=== PATIENT | female | born 1975 | race Two or more races ===

== ENCOUNTER → 2018-03-24 | Day surgery (SDC) | payer OTHER ==
[~2018-03-24] MED LIST: IV RINGERS,LACTATED 1000ML 1,000 ML IV; LIDOCAINE 1% PF 2 ML VIAL. ID; LIDOCAINE 2% PF Vial for OR 5 ML VIAL.; MIDAZOLAM HCL/PF 2 MG/2 ML VIAL. IV; PROPOFOL 40 ML IV; fentaNYL PF VIAL 100 MCG/2 ML VIAL; fentaNYL PF VIAL 100 MCG/2 ML VIAL IV
[2018-03-24] MEDS: IV RINGERS,LACTATED 1000ML 1,000 ML IV (07:00)
== END | disposition home or self-care (01) ==
LOC: SURG 06:28
DX: K64.0 First degree hemorrhoids (principal); K21.0 Gastro-esophageal reflux disease with esophagitis; K29.80 Duodenitis without bleeding; Z90.710 Acquired absence of both cervix and uterus; Z98.890 Other specified postprocedural states; M32.9 Systemic lupus erythematosus, unspecified; Z88.8 Allergy status to other drugs, medicaments and biological substances
CPT/HCPCS: 43239; 45380; 88305; J2001; J2704; J3010

== ENCOUNTER 2019-03-21 15:50 | Emergency (ER) | payer BC, OTHER ==
[~2019-03-21] VITALS: Ht 157.5 cm; Wt 96.6 kg
[~2019-03-21 15:50] MED LIST changes: -IV RINGERS,LACTATED 1000ML 1,000 ML IV; -LIDOCAINE 1% PF 2 ML VIAL. ID; -LIDOCAINE 2% PF Vial for OR 5 ML VIAL.; -MIDAZOLAM HCL/PF 2 MG/2 ML VIAL. IV; +OMEP20TA63 PO; -PROPOFOL 40 ML IV; -fentaNYL PF VIAL 100 MCG/2 ML VIAL; -fentaNYL PF VIAL 100 MCG/2 ML VIAL IV
[2019-03-21] MEDS ORDERED: ORPH100T PO (17:12)
[2019-03-21] MEDS ORDERED: BUTA1TAB23 PO (17:12)
--- NOTE | 2019-03-21 17:13 | PHYS DOC ---
Past Medical History Past Medical History: Anemia, Hypertension, Other Additional Past Medical Histor: lupus Past Surgical History: , Hysterectomy Alcohol Use: None Drug Use: None Adult General Chief Complaint Chief Complaint: HYPERTENSION HPI HPI Patient is a 44 year old [f__sex] who presents with [] Review of Systems Review of Systems Constitutional: Denies fever or chills [] Eyes: Denies change in visual acuity, redness, or eye pain [] HENT: Denies nasal congestion or sore throat [] Respiratory: Denies cough or shortness of breath [] Cardiovascular: No additional information not addressed in HPI [] GI: Denies abdominal pain, nausea, vomiting, bloody stools or diarrhea [] : Denies dysuria or hematuria [] Musculoskeletal: Denies back pain or joint pain [] Integument: Denies rash or skin lesions [] Neurologic: Denies headache, focal weakness or sensory changes [] Endocrine: Denies polyuria or polydipsia [] All other systems were reviewed and found to be within normal limits, except as documented in this note. Allergies Allergies Allergies Coded Allergies Type Severity Reaction Last Updated Verified dexamethasone Allergy Intermediate sob 03/24/18 Yes nalbuphine Allergy Intermediate sob 03/24/18 Yes Uncoded Allergies Type Severity Reaction Last Updated Verified CORTISONES Allergy Intermediate rash 03/24/18 Physical Exam Physical Exam Constitutional: Well developed, well nourished, no acute distress, non-toxic appearance. [] HENT: Normocephalic, atraumatic, bilateral external ears normal, oropharynx moist, no oral exudates, nose normal. [] Eyes: PERRLA, EOMI, conjunctiva normal, no discharge. [] Neck: Normal range of motion, no tenderness, supple, no stridor. [] Cardiovascular:Heart rate regular rhythm, no murmur [] Lungs & Thorax: Bilateral breath sounds clear to auscultation [] Abdomen: Bowel sounds normal, soft, no tenderness, no masses, no pulsatile masses. [] Skin: Warm, dry, no erythema, no rash. [] Back: No tenderness, no CVA tenderness. [] Extremities: No tenderness, no cyanosis, no clubbing, ROM intact, no edema. [] Neurologic: Alert and oriented X 3, normal motor function, normal sensory function, no focal deficits noted. [] Psychologic: Affect normal, judgement normal, mood normal. [] Current Patient Data Vital Signs Vital Signs Date Time Temp Pulse Resp B/P (MAP) Pulse Ox O2 Delivery O2 Flow Rate FiO2 03/21/19 16:35 98.5 76 18 127/70 (89) 100 Room Air 98.5 EKG EKG [] Radiology/Procedures Radiology/Procedures [] Course & Med Decision Making Course & Med Decision Making Pertinent Labs and Imaging studies reviewed. (See chart for details) [] Dragon Disclaimer Dragon Disclaimer This electronic medical record was generated, in whole or in part, using a voice recognition dictation system. Departure Departure Impression: Primary Impression: Headache Disposition: HOME, SELF-CARE Condition: STABLE Referrals: MARITA AGUILERA MD (PCP) Patient Instructions: Headache, FAQs, Tension Headache, [id number] Scripts Butalb/Acetaminophen/Caffeine (YTIRRX-[id number]-PTNY 50-325-40) 1 Each Tablet 1 EACH PO Q6HRS PRN for HEADACHE, #14 TAB Prov: KAITLYN MORRIS DO 03/21/19 Orphenadrine Citrate (ORPHENADRINE CITRATE) 100 Mg Tablet.er 100 MG PO BID, #14 Prov: KAITLYN MORRIS DO 03/21/19 Problem Qualifiers Primary Impression: Headache Headache type: unspecified Headache chronicity pattern: acute headache Intractability: intractable Qualified Codes: R51 - Headache KAITLYN MORRIS DO Mar 21, 2019 17:13
[2019-03-21] MEDS ORDERED: ORPHENADRINE CITRATE 60 MG/2 ML VIAL. IM ONE (17:15)
[2019-03-21] MEDS ORDERED: BUTALB/APAP/CAFEIN 50/325/40MG TABLET. PO ONE (17:15)
[2019-03-21 17:30] VITALS: BP 112/58
== END 2019-03-21 18:04 | disposition home or self-care (01) ==
LOC: ER 15:50
DX: R51 Headache (principal); I10 Essential (primary) hypertension; Z98.890 Other specified postprocedural states; Z90.710 Acquired absence of both cervix and uterus; Z88.8 Allergy status to other drugs, medicaments and biological substances
CPT/HCPCS: 96372; 99283; J2360

== ENCOUNTER 2020-12-24 13:08 | Emergency (ER) | payer MEDICAID ==
[~2020-12-24] VITALS: Ht 157.5 cm; Wt 99.0 kg
[~2020-12-24 13:08] MED LIST changes: +BUTA1TAB23 PO; +HYDR12.58 PO; +LISI10TA16 PO; +ORPH100T PO; +PANT20TA2 PO; +SERT-267 PO
[2020-12-24] MEDS: IV NORMAL SALINE 1000ML BAG 1,000 ML IV ONE ×2 (15:24→17:12)
[2020-12-24] MEDS: ONDANSETRON PF 4 MG/2 ML VIAL. IVP ONE (15:25)
[2020-12-24] MEDS: HYDROmorphone 2 MG/ML VIAL IVP ONE ×3 (15:26→19:13)
[2020-12-24 15:40] LABS: BASO # 0.1 x10^3/uL (0.0-0.2); BASO % 1 % (0-3); EOS # 0.1 x10^3/uL (0.0-0.7); EOS % 1 % (0-3); HEMATOCRIT 35.1 % (36.0-47.0); HEMOGLOBIN 11.8 g/dL (12.0-15.5); LYMPH # 2.2 x10^3/uL (1.0-4.8); LYMPH % 20 % (24-48); MEAN CORPUSCULAR HEMOGLOBIN 28 pg (25-35); MEAN CORPUSCULAR HGB CONC 34 g/dL (31-37); MEAN CORPUSCULAR VOLUME 85 fL (79-100); MONO # 0.8 x10^3/uL (0.0-1.1); MONO % 8 % (0-9); NEUT # 7.6 x10^3/uL (1.8-7.7); NEUT % 71 % (31-73); PLATELET COUNT 445 x10^3/uL (140-400); RED BLOOD COUNT 4.14 x10^6/uL (3.50-5.40); RED CELL DISTRIBUTION WIDTH 13.5 % (11.5-14.5); WHITE BLOOD COUNT 10.7 x10^3/uL (4.0-11.0)
[2020-12-24 15:54] LABS: CALCIUM 8.9 mg/dL (8.5-10.1); CREATININE 0.7 mg/dL (0.6-1.0); GFR 90.9; POTASSIUM 3.9 mmol/L (3.5-5.1)
[2020-12-24 16:00] LABS: ALBUMIN 3.4 g/dL (3.4-5.0); ALBUMIN/GLOBULIN RATIO 0.8 (1.0-1.7); TOTAL BILIRUBIN 0.3 mg/dL (0.2-1.0); TOTAL PROTEIN 7.8 g/dL (6.4-8.2)
--- NOTE | 2020-12-24 16:11 | RAD ---
Exam: CT of abdomen and pelvis without contrast INDICATION: Abdominal pain, post TECHNIQUE: Sequential axial images through the abdomen and pelvis obtained without IV contrast. Sagit cathryn and coronal reformatted images were reconstructed from the axial data and reviewed. Comparisons: 12/15/2020 FINDINGS: Heart size is normal. No pericardial effusion. Visualized lung bases are clear. No pleural effusion. Evaluation of solid organs is limited secondary to noncontrast technique. Liver, spleen, pancreas, gallbladder and adrenals are unremarkable. No perinephric inflammation or hydronephrosis. No renal or ureteral calculi are identified. Bladder is decompressed not well evaluated. Uterus is absent. No abnormal adnexal mass. There is edema and a small amount of fluid in the anterior abdominal wall which is somewhat difficult to evaluate given noncontrast technique however measures approximately 6.3 x 2.0 cm. There is mild s tranding in the mesentery underlying this portion of the abdominal wall. Mild stranding in the mesentery of the pelvis abutting loops of small bowel in the left lower quadran t. No bowel wall thickening is identified. No free air or free fluid is identified. Remainder of the large and small bowel are unremarkable. Appendix is not identified. No free intra-abdominal air or fl uid. Abdominal aorta has a normal course and caliber. No enlarged intra-abdominal lymph nodes are identified. No suspicious osseous lesions or acute fractures. IMPRESSION: 1. Edema and fluid noted at the anterior abdominal wall of the lower abdomen/pelvis with mild extens ion into the adjacent mesentery abutting a loop of small bowel. Findings could be postoperative in et iology. A discrete fluid collection is difficult to assess given noncontrast technique. No intra-abdo antonette fluid collection or free air is seen. 2. Previously seen cystic lesion at the left adnexa is absent, likely removed. Exposure: One or more of the following in the visualized dose reduction techniques were utilized for this examination: 1. Automated exposure control 2. Adjustment of the MA and/or KV according to patient size 3. Use of iterative of reconstructive technique Electronically signed by: Kana Diaz MD (12/24/2020 4:08 PM) [facility]
[2020-12-24 18:33] VITALS: BP 117/80
[2020-12-24] MEDS ORDERED: DOXY100T PO (18:36)
--- NOTE | 2020-12-24 18:37 | PHYS DOC ---
Past Medical History Past Medical History: Anemia, Hypertension, Other Additional Past Medical Histor: lupus Past Surgical History: , Hysterectomy Smoking Status: Never Smoker Alcohol Use: None Drug Use: None General Adult EDM: Chief Complaint: POST-OP PROBLEM HPI: HPI: Patient is a 45 year old female with a history of anemia, hypertension, who presents today complaining of increased pain as well as drainage from her C- section incision. Patient states she had an left oophorectomy done on 12/17/2020, she states since yesterday she has noted some yellow smelly drainage from her incision, patient denies any fever, nausea vomiting. Patient rates the pain as 10 out of 10 described as as sharp and intermittent worse on touching her abdomen and certain sleeping positions Review of Systems: Review of Systems: Constitutional: Denies fever or chills. [] Eyes: Denies change in visual acuity. [] HENT: Denies nasal congestion or sore throat. [] Respiratory: Denies cough or shortness of breath. [] Cardiovascular: Denies chest pain or edema. [] GI: Reports abdominal pain, denies nausea, vomiting, bloody stools or diarrhea. [] : Denies dysuria. [] Musculoskeletal: Denies back pain or joint pain. [] Integument: Reports drainage from above abdominal incision Neurologic: Denies headache, focal weakness or sensory changes. [] Psychiatric: Denies depression or anxiety. [] Heart Score: C/O Chest Pain: N/A Risk Factors: Risk Factors: DM, Current or recent (<one month) smoker, HTN, HLP, family history of CAD, obesity. Risk Scores: Score 0 - 3: 2.5% MACE over next 6 weeks - Discharge Home Score 4 - 6: 20.3% MACE over next 6 weeks - Admit for Clinical Observation Score 7 - 10: 72.7% MACE over next 6 weeks - Early Invasive Strategies Current Medications: Current Medications Medications (Trade) Dose Ordered Sig/Stephen Start Time Stop Time Status Last Admin Dose Admin Hydromorphone HCl (Dilaudid) 1 mg 1X ONCE 12/24/20 17:15 12/24/20 17:16 DC 12/24/20 17:12 1 MG Ondansetron HCl (Zofran) 4 mg 1X ONCE 12/24/20 15:00 12/24/20 15:01 DC 12/24/20 15:25 4 MG Sodium Chloride 1,000 ml @ 1,000 mls/hr 1X ONCE 12/24/20 13:45 12/24/20 14:44 DC 12/24/20 17:12 1,000 MLS/HR Allergies: Allergies: Allergies Coded Allergies Type Severity Reaction Last Updated Verified dexamethasone Allergy Severe sob 12/16/20 Yes nalbuphine Allergy Severe sob 12/16/20 Yes Corticosteroids (Glucocorticoids) Allergy Intermediate Rash 12/16/20 Yes Latex, Natural Rubber Allergy Intermediate 12/16/20 Yes Physical Exam: PE: Constitutional: Well developed, well nourished, no acute distress, non-toxic appearance. [] HENT: Normocephalic, atraumatic, bilateral external ears normal, oropharynx mois t, no oral exudates, nose normal. [] Eyes: PERRLA, EOMI, conjunctiva normal, no discharge. [] Neck: Normal range of motion, no tenderness, supple, no stridor. [] Cardiovascular:Heart rate regular rhythm, no murmur [] Lungs & Thorax: Bilateral breath sounds clear to auscultation [] Abdomen: type incision on the pubic region, no drainage noted right now in the ED, no redness, tenderness over the incision site, generalized tenderness throughout the lower abdomen, bowel sounds normal, soft, no masses, no pulsatile masses. [] Skin: See abdomen Back: No tenderness, no CVA tenderness. [] Extremities: No tenderness, no cyanosis, no clubbing, ROM intact, no edema. [] Neurologic: Alert and oriented X 3, normal motor function, normal sensory function, no focal deficits noted. [] Psychologic: Affect normal, judgement normal, mood normal. [] Current Patient Data: Labs: Laboratory Tests Test 12/24/20 15:20 White Blood Count 10.7 x10^3/uL (4.0-11.0) Red Blood Count 4.14 x10^6/uL (3.50-5.40) Hemoglobin 11.8 g/dL (12.0-15.5) L Hematocrit 35.1 % (36.0-47.0) L Mean Corpuscular Volume 85 fL (79-100) Mean Corpuscular Hemoglobin 28 pg (25-35) Mean Corpuscular Hemoglobin Concent 34 g/dL (31-37) Red Cell Distribution Width 13.5 % (11.5-14.5) Platelet Count 445 x10^3/uL (140-400) H Neutrophils (%) (Auto) 71 % (31-73) Lymphocytes (%) (Auto) 20 % (24-48) L Monocytes (%) (Auto) 8 % (0-9) Eosinophils (%) (Auto) 1 % (0-3) Basophils (%) (Auto) 1 % (0-3) Neutrophils # (Auto) 7.6 x10^3/uL (1.8-7.7) Lymphocytes # (Auto) 2.2 x10^3/uL (1.0-4.8) Monocytes # (Auto) 0.8 x10^3/uL (0.0-1.1) Eosinophils # (Auto) 0.1 x10^3/uL (0.0-0.7) Basophils # (Auto) 0.1 x10^3/uL (0.0-0.2) Sodium Level 139 mmol/L (136-145) Potassium Level 3.9 mmol/L (3.5-5.1) Chloride Level 102 mmol/L (98-107) Carbon Dioxide Level 28 mmol/L (21-32) Anion Gap 9 (6-14) Blood Urea Nitrogen 10 mg/dL (7-20) Creatinine 0.7 mg/dL (0.6-1.0) Estimated GFR (Cockcroft-Gault) 90.9 BUN/Creatinine Ratio 14 (6-20) Glucose Level 103 mg/dL (70-99) H Lactic Acid Level 1.4 mmol/L (0.4-2.0) Calcium Level 8.9 mg/dL (8.5-10.1) Total Bilirubin 0.3 mg/dL (0.2-1.0) Aspartate Amino Transferase (AST) 41 U/L (15-37) H Alanine Aminotransferase (ALT) 68 U/L (14-59) H Alkaline Phosphatase 136 U/L (46-116) H Total Protein 7.8 g/dL (6.4-8.2) Albumin 3.4 g/dL (3.4-5.0) Albumin/Globulin Ratio 0.8 (1.0-1.7) L Lipase 95 U/L (73-393) Procalcitonin < 0.10 ng/mL (0.00-0.10) Laboratory Tests 12/24/20 15:20 Laboratory Tests 12/24/20 15:20 Vital Signs: Vital Signs Date Time Temp Pulse Resp B/P (MAP) Pulse Ox O2 Delivery O2 Flow Rate FiO2 12/24/20 17:12 18 99 Room Air 12/24/20 13:35 97.7 77 123/57 (79) 97.7 EKG: EKG: [] Radiology/Procedures: Radiology/Procedures: []PROCEDURE: CT ABDOMEN PELVIS WO CONTRAST Exam: CT of abdomen and pelvis without contrast INDICATION: Abdominal pain, post TECHNIQUE: Sequential axial images through the abdomen and pelvis obtained without IV contrast. Sagittal and coronal reformatted images were reconstructed from the axial data and reviewed. Comparisons: 12/15/2020 FINDINGS: Heart size is normal. No pericardial effusion. Visualized lung bases are clear. No pleural effusion. Evaluation of solid organs is limited secondary to noncontrast technique. Liver, spleen, pancreas, gallbladder and adrenals are unremarkable. No perinephric inflammation or hydronephrosis. No renal or ureteral calculi are identified. Bladder is decompressed not well evaluated. Uterus is absent. No abnormal adnexal mass. There is edema and a small amount of fluid in the anterior abdominal wall which is somewhat difficult to evaluate given noncontrast technique however measures approximately 6.3 x 2.0 cm. There is mild stranding in the mesentery underlying this portion of the abdominal wall. Mild stranding in the mesentery of the pelvis abutting loops of small bowel in the left lower quadrant. No bowel wall thickening is identified. No free air or free fluid is identified. Remainder of the large and small bowel are unremarkable. Appendix is not identified. No free intra-abdominal air or fluid. Abdominal aorta has a normal course and caliber. No enlarged intra-abdominal lymph nodes are identified. No suspicious osseous lesions or acute fractures. IMPRESSION: 1. Edema and fluid noted at the anterior abdominal wall of the lower abdomen/pelvis with mild extension into the adjacent mesentery abutting a loop of small bowel. Findings could be postoperative in etiology. A discrete fluid collection is difficult to assess given noncontrast technique. No intra- abdominal fluid collection or free air is seen. 2. Previously seen cystic lesion at the left adnexa is absent, likely removed. Exposure: One or more of the following in the visualized dose reduction techniques were utilized for this examination: 1. Automated exposure control 2. Adjustment of the MA and/or KV according to patient size 3. Use of iterative of reconstructive technique Electronically signed by: Kana Bradley MD (12/24/2020 4:08 PM) [facility] DICTATED and SIGNED BY: KANA BRADLEY MD DATE: 12/24/20 [id number] 0 Course & Med Decision Making: Course & Med Decision Making Pertinent Labs and Imaging studies reviewed. (See chart for details) This is a 45-year-old female patient presenting to the ED today with pain and drainage from her incision that she has had after having a left oophorectomy done on 12/17/2020. Patient is afebrile. CBC with a normal WBC, hemoglobin and hematocrit are within her baseline. CMP with no acute findings. Lactic is normal. CT of the abdomen and pelvic was negative for anything really acute though this was done without contrast because they could not find an IV line to use contrast. I spoke to Dr. Romero, she requested we send patient home on doxycycline. Dragon Disclaimer: Dragcharity Disclaimer: This electronic medical record was generated, in whole or in part, using a voice recognition dictation system. Departure Departure Impression: Primary Impression: Abdominal pain Qualified Codes: R10.9 - Unspecified abdominal pain Additional Impression: Incisional pain Disposition: HOME / SELF CARE / HOMELESS Condition: STABLE Referrals: MARITA AGUILERA MD (PCP) JESS KILLIAN MD follow up whenever you are scheduled. Patient Instructions: Abdominal Pain (Nonspecific) Additional Instructions: You were evaluated in the emergency room. Your work-up was negative for any acute findings. Please take the prescribed antibiotics until completed. Follow-up with your OBGYN when scheduled Scripts Hydrocodone Bit/Acetaminophen (HYDROCODONE-APAP 5-325 ) 1 Tab Tablet 1 TAB PO PRN Q6HRS PRN for PAIN, #14 TAB 0 Refills Prov: JANIE DURÁN ELECTRICAL APPLIANCE REPAIRER 12/24/20 Doxycycline Hyclate (DOXYCYCLINE HYCLATE) 100 Mg Tablet 1 TAB PO BID, #14 TAB Prov: PERNELLAJANIE ELECTRICAL APPLIANCE REPAIRER 12/24/20 JANIE DURÁN ELECTRICAL APPLIANCE REPAIRER Dec 24, 2020 18:36
[2020-12-24] MEDS ORDERED: HYDR-2761 PO (18:55)
== END 2020-12-24 19:25 | disposition home or self-care (01) ==
LOC: ER 13:08
DX: G89.18 Other acute postprocedural pain (principal); R10.84 Generalized abdominal pain; I10 Essential (primary) hypertension; Z90.710 Acquired absence of both cervix and uterus
CPT/HCPCS: 36415; 74176; 80053; 83605; 83690; 84145; 85025; 87040; 96361; 96374; 96375; 96376; 99285; J1170; J2405; J7030

== ENCOUNTER 2020-12-30 20:25 | Observation (INO) | payer MEDICAID ==
[~2020-12-30] VITALS: Ht 157.5 cm; Wt 98.3 kg
[~2020-12-30 20:25] MED LIST changes: +DOXY100T PO; +HYDR-2761 PO
--- NOTE | 2020-12-30 21:24 | PHYS DOC ---
Past Medical History Past Medical History: Anemia, Hypertension, Other Additional Past Medical Histor: lupus Past Surgical History: , Hysterectomy Smoking Status: Never Smoker Alcohol Use: None Drug Use: None General Adult EDM: Chief Complaint: ABDOMINAL PAIN HPI: HPI: Patient is a 45 year old female presents with the chief complaint of epigastric right upper quadrant abdominal pain. Patient states she has had abdominal pain on and off since December 15. Patient's pain is associated with nausea vomiting and initially episodes of diarrhea. Patient states all day today she has been vomiting. She states her pain in her epigastric right upper quadrant region is a 10 out of 10. Patient's pain does not radiate. Patient was evaluated on 12/17 and was admitted to the hospital and underwent a left oophorectomy. Post-procedure patient was evaluated for pain along her surgical site. CT abdomen pelvis was performed at that time found to show no acute abnormalities associated with surgical procedure. The provider discussed the patient with the surgeon and patient was discharged home on doxycycline. Patient states she tried to take the doxycycline previously prescribed to her but it made her very drowsy and dizzy so she did not complete the medication. Patient was also prescribed hydrocodone which she states mildly helped with her pain. Review of Systems: Review of Systems: Constitutional: Denies fever or chills. [] Eyes: Denies change in visual acuity. [] HENT: Denies nasal congestion or sore throat. [] Respiratory: Denies cough or shortness of breath. [] Cardiovascular: Denies chest pain or edema. [] GI: Denies abdominal pain, nausea, vomiting, bloody stools or diarrhea. [] : Denies dysuria. [] Musculoskeletal: Denies back pain or joint pain. [] Integument: Denies rash. [] Neurologic: Denies headache, focal weakness or sensory changes. [] Endocrine: Denies polyuria or polydipsia. [] Lymphatic: Denies swollen glands. [] Psychiatric: Denies depression or anxiety. [] Heart Score: C/O Chest Pain: N/A Risk Factors: Risk Factors: DM, Current or recent (<one month) smoker, HTN, HLP, family history of CAD, obesity. Risk Scores: Score 0 - 3: 2.5% MACE over next 6 weeks - Discharge Home Score 4 - 6: 20.3% MACE over next 6 weeks - Admit for Clinical Observation Score 7 - 10: 72.7% MACE over next 6 weeks - Early Invasive Strategies Allergies: Allergies: Allergies Coded Allergies Type Severity Reaction Last Updated Verified dexamethasone Allergy Severe sob 12/16/20 Yes nalbuphine Allergy Severe sob 12/16/20 Yes Corticosteroids (Glucocorticoids) Allergy Intermediate Rash 12/16/20 Yes Latex, Natural Rubber Allergy Intermediate 12/16/20 Yes Physical Exam: PE: Constitutional: Well developed, well nourished, no acute distress, non-toxic appearance. [] HENT: Normocephalic, atraumatic, bilateral external ears normal, oropharynx moist, no oral exudates, nose normal. [] Eyes: PERRLA, EOMI, conjunctiva normal, no discharge. [] Neck: Normal range of motion, no tenderness, supple, no stridor. [] Cardiovascular:Heart rate regular rhythm, no murmur [] Lungs & Thorax: Bilateral breath sounds clear to auscultation [] Abdomen: Bowel sounds normal, soft, no tenderness, no masses, no pulsatile masses. [] Skin: Warm, dry, no erythema, no rash. [] Back: No tenderness, no CVA tenderness. [] Extremities: No tenderness, no cyanosis, no clubbing, ROM intact, no edema. [] Neurologic: Alert and oriented X 3, normal motor function, normal sensory function, no focal deficits noted. [] Psychologic: Affect normal, judgement normal, mood normal. [] EKG: EKG: [] Radiology/Procedures: Radiology/Procedures: [] Impression: FINDINGS: Liver contour is normal. Increased echogenicity of the liver. Hepatopedal flow in the portal vein. Gallbladder is distended and appears thin-walled. No pericholecystic fluid or wall thickening. Common bile duct measures 7 mm in diameter, mildly dilated. Right kidney measures 11.5 cm in length. No hydronephrosis. Visualized portions aorta and IVC are unremarkable. IMPRESSION: 1. Diffuse hepatic steatosis. 2. No sonographic evidence for acute cholecystitis. 3. No right-sided hydronephrosis. Course & Med Decision Making: Course & Med Decision Making Pertinent Labs and Imaging studies reviewed. (See chart for details) [] Was evaluated for chief complaint. Work-up consisted of laboratory analysis and radiologic imaging. CBD mildly elevated with slight elevation in LFTs. Patient was admitted to the hospitalist with a GI consult. Najma Disclaimer: Najma Disclaimer: This electronic medical record was generated, in whole or in part, using a voice recognition dictation system. Departure Departure Impression: Primary Impression: Abdominal pain Additional Impression: Nausea & vomiting Disposition: ADMITTED INPATIENT Admitting Physician: GUERLINE Condition: STABLE Referrals: MARITA AGUILERA MD (PCP) MICHELLE MERRITT DO Dec 30, 2020 21:24
[2020-12-30 21:30] LABS: BASO # 0.2 x10^3/uL (0.0-0.2); BASO % 1 % (0-3); EOS # 0.1 x10^3/uL (0.0-0.7); EOS % 1 % (0-3); HEMATOCRIT 36.6 % (36.0-47.0); HEMOGLOBIN 12.4 g/dL (12.0-15.5); LYMPH # 2.8 x10^3/uL (1.0-4.8); LYMPH % 23 % (24-48); MEAN CORPUSCULAR HEMOGLOBIN 28 pg (25-35); MEAN CORPUSCULAR HGB CONC 34 g/dL (31-37); MEAN CORPUSCULAR VOLUME 84 fL (79-100); MONO # 0.8 x10^3/uL (0.0-1.1); MONO % 7 % (0-9); NEUT % 68 % (31-73); PLATELET COUNT 521 x10^3/uL (140-400); RED BLOOD COUNT 4.38 x10^6/uL (3.50-5.40); RED CELL DISTRIBUTION WIDTH 13.5 % (11.5-14.5); WHITE BLOOD COUNT 11.8 x10^3/uL (4.0-11.0)
[2020-12-30 21:44] LABS: CALCIUM 9.8 mg/dL (8.5-10.1); CREATININE 0.7 mg/dL (0.6-1.0); GFR 90.9; POTASSIUM 3.9 mmol/L (3.5-5.1)
[2020-12-30] MEDS ORDERED: ONDANSETRON PF 4 MG/2 ML VIAL. IVP ONE (21:45)
[2020-12-30] MEDS ORDERED: IV NORMAL SALINE 1000ML BAG 1,000 ML IV ONE (21:45)
[2020-12-30] MEDS ORDERED: KETOROLAC 30 MG/ML VIAL. IVP ONE (21:45)
[2020-12-30 21:49] LABS: ALBUMIN 3.9 g/dL (3.4-5.0); ALBUMIN/GLOBULIN RATIO 0.8 (1.0-1.7); TOTAL BILIRUBIN 0.5 mg/dL (0.2-1.0); TOTAL PROTEIN 8.5 g/dL (6.4-8.2)
--- NOTE | 2020-12-30 22:32 | RAD ---
Exam: Ultrasound abdomen limited Indication: Epigastric right upper quadrant abdominal pain Technique: Real-time grayscale and color Doppler images of the right upper quadrant were obtained by the department communication skills instructor. Comparisons: None FINDINGS: Liver contour is normal. Increased echogenicity of the liver. Hepatopedal flow in the portal vein. Gallbladder is distended and appears thin-walled. No pericholecystic fluid or wall thickening. Common bile duct measures 7 mm in diameter, mildly dilated. Right kidney measures 11.5 cm in length. No hydronephrosis. Visualized portions aorta and IVC are unremarkable. IMPRESSION: 1. Diffuse hepatic steatosis. 2. No sonographic evidence for acute cholecystitis. 3. No right-sided hydronephrosis. Electronically signed by: Kana Diaz MD (12/30/2020 10:30 PM) [facility]
[2020-12-30 23:34] LABS: BILIRUBIN,URINE NEGATIVE (NEG); CLARITY,URINE CLEAR; COLOR,URINE YELLOW; NITRITE,URINE NEGATIVE (NEG); PROTEIN,URINE NEGATIVE (NEG-TRACE); UROBILINOGEN,URINE 0.2 mg/dL (0.2 mg/dL)
[2020-12-30 23:43] LABS: BACTERIA,URINE 0 /HPF (0-FEW); RBC,URINE 0 /HPF (0-2); WBC,URINE OCC /HPF (0-4)
[2020-12-31 01:55] VITALS: BP 106/58
[2020-12-31] MEDS: MORPHINE SULFATE 4 MG/ML VIAL. IV PRN ×2 (03:03→19:30)
[2020-12-31 07:41] VITALS: BP 99/40
--- NOTE | 2020-12-31 07:59 | PDOC1 ---
History and Physical Date of Service: DOS: DATE: 12/31/20 TIME: 07:56 Chief Complaint: Chief Complain: Abdominal pain and nausea vomiting History of Present Illness: HPI: 45 year old female presents with the chief complaint of epigastric right upper quadrant abdominal pain. Patient states she has had abdominal pain on and off since December 15. Patient's pain is associated with nausea vomiting and initially episodes of diarrhea. Patient states all day today she has been vomiting. She states her pain in her epigastric right upper quadrant region is a 10 out of 10. Patient's pain does not radiate. Patient was evaluated on 12/17 and was admitted to the hospital and underwent a left oophorectomy. Post-procedure patient was evaluated for pain along her surgical site. CT abdomen pelvis was performed at that time found to show no acute abnormalities associated with surgical procedure. The provider discussed the patient with the surgeon and patient was discharged home on doxycycline. Patient states she tried to take the doxycycline previously prescribed to her but it made her very drowsy and dizzy so she did not complete the medication. Patient was also prescribed hydrocodone which she states mildly helped with her pain. Past Medical/Surgical History: PMH/PSH: Past Medical History: Anemia, Hypertension, lupus Past Surgical History: , Hysterectomy Allergies: Allergies: Coded Allergies: dexamethasone (Verified Allergy, Severe, sob, 12/16/20) nalbuphine (Verified Allergy, Severe, sob, 12/16/20) Corticosteroids (Glucocorticoids) (Verified Allergy, Intermediate, Rash, 12/16/20) "CORTISONES" Latex, Natural Rubber (Verified Allergy, Intermediate, 12/16/20) Family History: Family History: Reviewed with no relevant findings Social History: Social History: Smoking Status: Never Smoker Alcohol Use: None Drug Use: None Current Medications: Current Medications Current Medications Sodium Chloride 1,000 ml @ 1,000 mls/hr 1X ONCE IV Last administered on 12/30/20at 22:17; Start 12/30/20 at 21:45; Stop 12/30/20 at 22:44; Status DC Ondansetron HCl (Zofran) 4 mg 1X ONCE IVP Last administered on 12/30/20at 22:17; Start 12/30/20 at 21:45; Stop 12/30/20 at 21:46; Status DC Ketorolac Tromethamine (Toradol 30mg Vial) 30 mg 1X ONCE IVP Last administered on 12/30/20at 22:17; Start 12/30/20 at 21:45; Stop 12/30/20 at 21:46; Status DC Ondansetron HCl (Zofran) 4 mg PRN Q8HRS PRN IV NAUSEA/VOMITING; Start 12/31/20 at 03:00; Stop 01/01/21 at 02:59 Morphine Sulfate (Morphine Sulfate) 4 mg PRN Q2HR PRN IV PAIN Last administered on 12/31/20at 03:03; Start 12/31/20 at 03:00; Stop 01/01/21 at 02:59 Active Scripts Active Hydrocodone-Apap 5-325 (Hydrocodone Bit/Acetaminophen) 1 Tab Tablet 1 Tab PO PRN Q6HRS PRN Doxycycline Hyclate 100 Mg Tablet 1 Tab PO BID Jpxinb-Eprmgptd-Fvac 50-325-40 (Butalb/Acetaminophen/Caffeine) 1 Each Tablet 1 Each PO Q6HRS PRN Orphenadrine Citrate 100 Mg Tablet.er 100 Mg PO BID Reported Sertraline Hcl 50 Mg Tablet 50 Mg PO DAILY Lisinopril 10 Mg Tablet 1 Tab PO DAILY Hydrochlorothiazide Tablet (Hydrochlorothiazide) 12.5 Mg Tablet 25 Mg PO DAILY Protonix (Pantoprazole Sodium) 20 Mg Tablet. 40 Mg PO DAILY Prilosec Otc (Omeprazole Magnesium) 20 Mg Tablet. 20 Mg PO DAILY ROS: Review of Systems Review of System REVIEW OF SYSTEMS: GENERAL: Denies weakness SKIN: No bruising, hair changes or rashes. EYES: No blurred, double or loss of vision. NOSE AND THROAT: No history of nosebleeds, hoarseness or sore throat. HEART: No history of palpitations, chest pain or shortness of breath on exertion. LUNGS: Denies cough, hemoptysis, wheezing or shortness of breath. GASTROINTESTINAL: Denies changes in appetite, nausea, vomiting, diarrhea or constipation. GENITOURINARY: No history of frequency, urgency, hesitancy or nocturia. NEUROLOGIC: Denies history of numbness, tingling, or tremor. PSYCHIATRIC: No history of panic, anxiety or depression. ENDOCRINE: No history of heat or cold intolerance, polyuria or polydipsia. EXTREMITIES: Denies joint pain, pain on walking or stiffness. Physical Exam: Vital Signs: Vital Signs Date Time Temp Pulse Resp B/P (MAP) Pulse Ox O2 Delivery O2 Flow Rate FiO2 12/31/20 07:41 97.3 72 18 99/40 (59) 100 Room Air 97.3 Physcial Exam: GEN: No apparent distress. Alert and oriented HEENT: Normal cephalic, atraumatic, external auditory canals are patent EYES: Extraocular muscles are intact, pupil are equally round and reactive to light and accommodation MUSCULOSKELETAL: Well developed , well nourished, good range of motion ENDOCRINE: No thyromegaly was palpated LYMPHATICS: No cervical chain or axillary nodes were noted HEMATOPOIETIC: No bruising NECK: Supple, no JVD, no thyromegaly was noted LUNGS: Clear to auscultation in all lung hawk without rhonchi or wheezing HEART: RRR, S!, S2 present. Peripheral pulses intact, no obvious murmurs noted ABDOMEN: Soft, nontender. Positive bowel sounds, no organomegaly, normal bowel sounds EXTREMITIES: Without clubbing, cyanosis, or edema. Pedal pulses intact. Negative Homans sign NEUROLOGIC: Normal speech and tone. A&O x 3, moves all extremities, no obvious focal deficits PSYCHIATRIC: Normal affect, normal mood. Stable SKIN: No ulcerations or rashes, good skin turgor, no jaundice VASCULAR: Good capillary refill, neurovascular bundle appears to be intact Labs: Labs: Laboratory Tests Test 12/30/20 21:11 12/30/20 23:25 White Blood Count 11.8 x10^3/uL (4.0-11.0) Red Blood Count 4.38 x10^6/uL (3.50-5.40) Hemoglobin 12.4 g/dL (12.0-15.5) Hematocrit 36.6 % (36.0-47.0) Mean Corpuscular Volume 84 fL (79-100) Mean Corpuscular Hemoglobin 28 pg (25-35) Mean Corpuscular Hemoglobin Concent 34 g/dL (31-37) Red Cell Distribution Width 13.5 % (11.5-14.5) Platelet Count 521 x10^3/uL (140-400) Neutrophils (%) (Auto) 68 % (31-73) Lymphocytes (%) (Auto) 23 % (24-48) Monocytes (%) (Auto) 7 % (0-9) Eosinophils (%) (Auto) 1 % (0-3) Basophils (%) (Auto) 1 % (0-3) Neutrophils # (Auto) 8.0 x10^3/uL (1.8-7.7) Lymphocytes # (Auto) 2.8 x10^3/uL (1.0-4.8) Monocytes # (Auto) 0.8 x10^3/uL (0.0-1.1) Eosinophils # (Auto) 0.1 x10^3/uL (0.0-0.7) Basophils # (Auto) 0.2 x10^3/uL (0.0-0.2) Sodium Level 136 mmol/L (136-145) Potassium Level 3.9 mmol/L (3.5-5.1) Chloride Level 99 mmol/L (98-107) Carbon Dioxide Level 29 mmol/L (21-32) Anion Gap 8 (6-14) Blood Urea Nitrogen 13 mg/dL (7-20) Creatinine 0.7 mg/dL (0.6-1.0) Estimated GFR (Cockcroft-Gault) 90.9 BUN/Creatinine Ratio 19 (6-20) Glucose Level 95 mg/dL (70-99) Calcium Level 9.8 mg/dL (8.5-10.1) Total Bilirubin 0.5 mg/dL (0.2-1.0) Aspartate Amino Transf (AST/SGOT) 42 U/L (15-37) Alanine Aminotransferase (ALT/SGPT) 79 U/L (14-59) Alkaline Phosphatase 132 U/L (46-116) Total Protein 8.5 g/dL (6.4-8.2) Albumin 3.9 g/dL (3.4-5.0) Albumin/Globulin Ratio 0.8 (1.0-1.7) Lipase 109 U/L (73-393) Urine Collection Type Unknown Urine Color Yellow Urine Clarity Clear Urine pH 6.0 (<5.0-8.0) Urine Specific [place] 1.020 (1.000-1.030) Urine Protein Negative mg/dL (NEG-TRACE) Urine Glucose (UA) Negative mg/dL (NEG) Urine Ketones (Stick) Negative mg/dL (NEG) Urine Blood Negative (NEG) Urine Nitrite Negative (NEG) Urine Bilirubin Negative (NEG) Urine Urobilinogen Dipstick 0.2 mg/dL (0.2 mg/dL) Urine Leukocyte Esterase Negative (NEG) Urine RBC 0 /HPF (0-2) Urine WBC Occ /HPF (0-4) Urine Squamous Epithelial Cells Mod /LPF Urine Bacteria 0 /HPF (0-FEW) Urine Mucus Mod /LPF Laboratory Tests Test 12/30/20 21:11 12/30/20 23:25 White Blood Count 11.8 x10^3/uL (4.0-11.0) Red Blood Count 4.38 x10^6/uL (3.50-5.40) Hemoglobin 12.4 g/dL (12.0-15.5) Hematocrit 36.6 % (36.0-47.0) Mean Corpuscular Volume 84 fL (79-100) Mean Corpuscular Hemoglobin 28 pg (25-35) Mean Corpuscular Hemoglobin Concent 34 g/dL (31-37) Red Cell Distribution Width 13.5 % (11.5-14.5) Platelet Count 521 x10^3/uL (140-400) Neutrophils (%) (Auto) 68 % (31-73) Lymphocytes (%) (Auto) 23 % (24-48) Monocytes (%) (Auto) 7 % (0-9) Eosinophils (%) (Auto) 1 % (0-3) Basophils (%) (Auto) 1 % (0-3) Neutrophils # (Auto) 8.0 x10^3/uL (1.8-7.7) Lymphocytes # (Auto) 2.8 x10^3/uL (1.0-4.8) Monocytes # (Auto) 0.8 x10^3/uL (0.0-1.1) Eosinophils # (Auto) 0.1 x10^3/uL (0.0-0.7) Basophils # (Auto) 0.2 x10^3/uL (0.0-0.2) Sodium Level 136 mmol/L (136-145) Potassium Level 3.9 mmol/L (3.5-5.1) Chloride Level 99 mmol/L (98-107) Carbon Dioxide Level 29 mmol/L (21-32) Anion Gap 8 (6-14) Blood Urea Nitrogen 13 mg/dL (7-20) Creatinine 0.7 mg/dL (0.6-1.0) Estimated GFR (Cockcroft-Gault) 90.9 BUN/Creatinine Ratio 19 (6-20) Glucose Level 95 mg/dL (70-99) Calcium Level 9.8 mg/dL (8.5-10.1) Total Bilirubin 0.5 mg/dL (0.2-1.0) Aspartate Amino Transf (AST/SGOT) 42 U/L (15-37) Alanine Aminotransferase (ALT/SGPT) 79 U/L (14-59) Alkaline Phosphatase 132 U/L (46-116) Total Protein 8.5 g/dL (6.4-8.2) Albumin 3.9 g/dL (3.4-5.0) Albumin/Globulin Ratio 0.8 (1.0-1.7) Lipase 109 U/L (73-393) Urine Collection Type Unknown Urine Color Yellow Urine Clarity Clear Urine pH 6.0 (<5.0-8.0) Urine Specific [place] 1.020 (1.000-1.030) Urine Protein Negative mg/dL (NEG-TRACE) Urine Glucose (UA) Negative mg/dL (NEG) Urine Ketones (Stick) Negative mg/dL (NEG) Urine Blood Negative (NEG) Urine Nitrite Negative (NEG) Urine Bilirubin Negative (NEG) Urine Urobilinogen Dipstick 0.2 mg/dL (0.2 mg/dL) Urine Leukocyte Esterase Negative (NEG) Urine RBC 0 /HPF (0-2) Urine WBC Occ /HPF (0-4) Urine Squamous Epithelial Cells Mod /LPF Urine Bacteria 0 /HPF (0-FEW) Urine Mucus Mod /LPF Images: Images PROCEDURE: ABDOMEN LTD IMPRESSION: 1. Diffuse hepatic steatosis. 2. No sonographic evidence for acute cholecystitis. 3. No right-sided hydronephrosis. Assessment/Plan Assessment/Plan Intractable nausea vomiting Acute dyspepsia Mildly elevated transaminitis Hepatic steatosis on imaging Reactive leukocytosis and thrombocytosis Admit to medicine for further management GI consult Consider venlafaxine for GI complaints H. pylori testing Ambulation for DVT prophylaxis Protonix GI prophylaxis ADA diet Full code Discussed with RN and SW Disposition pending HIDA scan Surrogate decision maker is Justifications for Admission Other Justification intractable abd pain SHERRILL WALL MD Dec 31, 2020 07:59
--- NOTE | 2020-12-31 09:21 | PDOC ---
Date of Service: DATE: 12/31/20 TIME: : Subjective: Subjective: Please see GI consult note from 12/15/20 and following progress notes. Had LLQ pain then. Found w/ left adnexal cystic lesion - s/p laparotomy, JD, left oophorectomy 12/17 - path without malignancy. LFTs were some elevated. On discharge, advised to continue PPI and B12, use laxatives PRN, and follow-up w/ GI PRN. Back to ER w/ epigastric pain. Began again after discharge, gradually worse. No help from PPI, dicyclomine, Pepto, and hydrocodone. Continuous pain but worse after eating. Associated w/ vomiting - sometime immediately after eating, sometimes hours later (undigested food). Decreased appetite, early satiety, and reflux also noted. No diarrhea, constipation, or bleeding. No dysphagia/odynophagia. Mother and sister had GB problems. Objective: Vital Signs: Vital Signs Date Time Temp Pulse Resp B/P (MAP) Pulse Ox O2 Delivery O2 Flow Rate FiO2 12/31/20 07:41 97.3 72 18 99/40 (59) 100 Room Air 97.3 Labs: Laboratory Tests Test 12/30/20 21:11 12/30/20 23:25 White Blood Count 11.8 x10^3/uL Red Blood Count 4.38 x10^6/uL Hemoglobin 12.4 g/dL Hematocrit 36.6 % Mean Corpuscular Volume 84 fL Mean Corpuscular Hemoglobin 28 pg Mean Corpuscular Hemoglobin Concent 34 g/dL Red Cell Distribution Width 13.5 % Platelet Count 521 x10^3/uL Neutrophils (%) (Auto) 68 % Lymphocytes (%) (Auto) 23 % Monocytes (%) (Auto) 7 % Eosinophils (%) (Auto) 1 % Basophils (%) (Auto) 1 % Neutrophils # (Auto) 8.0 x10^3/uL Lymphocytes # (Auto) 2.8 x10^3/uL Monocytes # (Auto) 0.8 x10^3/uL Eosinophils # (Auto) 0.1 x10^3/uL Basophils # (Auto) 0.2 x10^3/uL Sodium Level 136 mmol/L Potassium Level 3.9 mmol/L Chloride Level 99 mmol/L Carbon Dioxide Level 29 mmol/L Anion Gap 8 Blood Urea Nitrogen 13 mg/dL Creatinine 0.7 mg/dL Estimated GFR (Cockcroft-Gault) 90.9 BUN/Creatinine Ratio 19 Glucose Level 95 mg/dL Calcium Level 9.8 mg/dL Total Bilirubin 0.5 mg/dL Aspartate Amino Transf (AST/SGOT) 42 U/L Alanine Aminotransferase (ALT/SGPT) 79 U/L Alkaline Phosphatase 132 U/L Total Protein 8.5 g/dL Albumin 3.9 g/dL Albumin/Globulin Ratio 0.8 Lipase 109 U/L Urine Collection Type Unknown Urine Color Yellow Urine Clarity Clear Urine pH 6.0 Urine Specific [place] 1.020 Urine Protein Negative mg/dL Urine Glucose (UA) Negative mg/dL Urine Ketones (Stick) Negative mg/dL Urine Blood Negative Urine Nitrite Negative Urine Bilirubin Negative Urine Urobilinogen Dipstick 0.2 mg/dL Urine Leukocyte Esterase Negative Urine RBC 0 /HPF Urine WBC Occ /HPF Urine Squamous Epithelial Cells Mod /LPF Urine Bacteria 0 /HPF Urine Mucus Mod /LPF Imaging: Abd US IMPRESSION: 1. Diffuse hepatic steatosis. 2. No sonographic evidence for acute cholecystitis. 3. No right-sided hydronephrosis. CBD 7mm. PE: GEN: uncomfortable HEENT: Atraumatic, PERRL LUNGS: CTAB HEART: RRR ABD: quiet, soft, epigastric tenderness EXTREMITY: No edema SKIN: No rashes, no jaundice NEURO/PSYCH: A & O 3 A/P: Epigastric pain, n/v Leukocytosis, elevated LFTs (stable from 12/24) H/o B12 deficiency GERD - on PPI CRC screen - UTD H/o SLE -- Returned to see w/ Dr. Dunn. Check HIDA today. Consider EGD and/or GES if unrevealing. PPI, monitor LFTs. Can use Toradol in place of morphine while awaiting HIDA. Scopes UTD (EGD and colonoscopy in 2018). Justicifation of Admission Dx: Justifications for Admission: Justification of Admission Dx: Yes VICENTE GARDNER Dec 31, 2020 09:21
--- NOTE | 2020-12-31 09:41 | NUR ---
SW following. Discussed with RN, pt from home with , room air, NPO. GI following. RN advised no SW needs at this time. SW will continue to follow.
[2020-12-31] MEDS: ONDANSETRON PF 4 MG/2 ML VIAL. IV PRN ×2 (10:22→19:43)
[2020-12-31] MEDS ORDERED: KETOROLAC 30 MG/ML VIAL. IVP PRN (10:30)
[2020-12-31 11:06] VITALS: BP 93/39
[2020-12-31] MEDS: PANTOPRAZOLE IV PUSH 40 MG VIAL. IVP SCH (11:33)
[2020-12-31] MEDS: CYANOCOBALAMIN (VITAMIN B-12) 1,000 MCG/ML VIAL. IM SCH (11:36)
[2020-12-31] MEDS: VENLAFAXINE 50 MG TABLET. PO SCH (12:30)
[2020-12-31] MEDS ORDERED: SINCALIDE IV ONE (14:00)
[2020-12-31] MEDS ORDERED: NORMAL SALINE IV ONE (14:00)
[2020-12-31 15:00] VITALS: BP 125/80
--- NOTE | 2020-12-31 15:26 | RAD ---
EXAM: HEPATOBILIARY SCINTIGRAPHY WITH GALLBLADDER EJECTION FRACTION CALCULATION. HISTORY: Epigastric pain, nausea and vomiting. TECHNIQUE: 5.5 mCi technetium-99m Choletec were administered intravenously and scintigraphic images o f the abdomen obtained. After filling of the gallbladder, 1.97 mcg of sincalide were infused and the gallbladder ejection fraction calculated. FINDINGS: There is prompt hepatic clearance of tracer from the blood pool. There is homogeneous distr ibution throughout the liver. There is normal filling of the gallbladder and clearance into the bilia ry tree and small bowel. The gallbladder ejection fraction is 6% (normal >35%). IMPRESSION: 1. Decreased gallbladder ejection fraction suggesting biliary dyskinesia. Electronically signed by: Hoa Soto MD (12/31/2020 3:24 PM) [id number]
[2020-12-31 19:00] VITALS: BP 114/57
--- NOTE | 2020-12-31 22:15 | NUR ---
Patient having episodes of vomiting, anxiety, and states her right thigh is numb, vss, to call and get orders. Monitoring.
[2020-12-31 23:00] VITALS: BP 117/58
[2020-12-31] MEDS: IV NORMAL SALINE 1000ML BAG 1,000 ML IV SCH (23:05)
[2020-12-31] MEDS: PROCHLORPERAZINE 10 MG/2 ML VIAL. IV PRN (23:06)
[2021-01-01 03:00] VITALS: BP 116/56
[2021-01-01 07:00] VITALS: BP 105/59
[2021-01-01 07:20] LABS: HEMATOCRIT 31.3 % (36.0-47.0); HEMOGLOBIN 10.3 g/dL (12.0-15.5); RED BLOOD COUNT 3.68 x10^6/uL (3.50-5.40); RED CELL DISTRIBUTION WIDTH 13.3 % (11.5-14.5); WHITE BLOOD COUNT 7.6 x10^3/uL (4.0-11.0)
[2021-01-01 07:25] LABS: ALBUMIN 3.3 g/dL (3.4-5.0); ALBUMIN/GLOBULIN RATIO 0.9 (1.0-1.7); CALCIUM 8.9 mg/dL (8.5-10.1); CREATININE 0.7 mg/dL (0.6-1.0); GFR 90.9; POTASSIUM 4.2 mmol/L (3.5-5.1); TOTAL BILIRUBIN 0.4 mg/dL (0.2-1.0); TOTAL PROTEIN 7.1 g/dL (6.4-8.2)
[2021-01-01] MEDS: PANTOPRAZOLE IV PUSH 40 MG VIAL. IVP SCH (09:02)
[2021-01-01] MEDS: CYANOCOBALAMIN (VITAMIN B-12) 1,000 MCG/ML VIAL. IM SCH (09:02)
[2021-01-01] MEDS: VENLAFAXINE 50 MG TABLET. PO SCH (09:02)
--- NOTE | 2021-01-01 09:13 | PDOC2 ---
MIKEL GUAN Alicia BUSINESS PERFORMANCE MANAGER 01/01/21 0913: CONSULT Date of Consult Date of Consult DATE: 01/01/21 TIME: 08:57 Reason for Consult Reason for Consult: low GB EF Referring Physician Referring Physician: Dr Dunn Identification/Chief Complaint Chief Complaint abdominal pain Source Source: Chart review, Patient History of Present Illness Reason for Visit: Reports epigastric abdominal pain. has been occuring since admission 12/15. At that time was also have LLQ, noted to have an adnexal mass an underwent Laparotomy, lysis of adhesions, left side oophorectomy on 12/17. was home recovering, Tuesday had a donut and glass of half/half--developed abdomen pain, vomiting again EF done--6% Past Medical History Cardiovascular: HTN Pulmonary: No pertinent hx GI: No pertinent hx Heme/Onc: No pertinent hx Hepatobiliary: No pertinent hx Infectious disease: No pertinent hx Renal/: No pertinent hx Endocrine: No pertinent hx Past Surgical History Past Surgical History: , Hysterectomy, Other (Laparotomy, lysis of adhesions, left side oophorectomy.) Family History Family History: Hypertension Social History ALCOHOL: none Drugs: None Current Problem List Problem List Problems Medical Problems: (1) Abdominal pain Status: Acute (2) Nausea & vomiting Status: Acute Current Medications Current Medications Current Medications Sodium Chloride 1,000 ml @ 1,000 mls/hr 1X ONCE IV Last administered on 12/30/20at 22:17; Start 12/30/20 at 21:45; Stop 12/30/20 at 22:44; Status DC Ondansetron HCl (Zofran) 4 mg 1X ONCE IVP Last administered on 12/30/20at 22:17; Start 12/30/20 at 21:45; Stop 12/30/20 at 21:46; Status DC Ketorolac Tromethamine (Toradol 30mg Vial) 30 mg 1X ONCE IVP Last administered on 12/30/20at 22:17; Start 12/30/20 at 21:45; Stop 12/30/20 at 21:46; Status DC Ondansetron HCl (Zofran) 4 mg PRN Q8HRS PRN IV NAUSEA/VOMITING Last administered on 12/31/20at 19:43; Start 12/31/20 at 03:00; Stop 01/01/21 at 02:59; Status DC Morphine Sulfate (Morphine Sulfate) 4 mg PRN Q2HR PRN IV SEV Last administered on 12/31/20at 19:30; Start 12/31/20 at 03:00; Stop 01/03/21 at 02:59 Ketorolac Tromethamine (Toradol 30mg Vial) 30 mg PRN Q6HRS PRN IVP INFLAMMATION Last administered on 12/31/20at 11:33; Start 12/31/20 at 10:30; Stop 12/31/20 at 16:02; Status DC Pantoprazole Sodium (PROTONIX VIAL for IV PUSH) 40 mg DAILYAC IVP Last administered on 12/31/20at 11:33; Start 12/31/20 at 11:00 Cyanocobalamin (Vitamin B-12) 1,000 mcg DAILY IM Last administered on 12/31/20at 11:36; Start 12/31/20 at 12:00 Venlafaxine HCl (Effexor) 50 mg DAILY PO ; Start 12/31/20 at 12:30 Sincalide 1.97 mcg/Sodium Chloride 30 ml @ 120 mls/hr 1X ONCE IV Last administered on 12/31/20at 14:32; Start 12/31/20 at 14:00; Stop 12/31/20 at 14:14; Status DC Prochlorperazine Edisylate (Compazine) 10 mg PRN Q8HRS PRN IV NAUSEA/VOMITING Last administered on 12/31/20at 23:06; Start 12/31/20 at 22:30 Sodium Chloride 1,000 ml @ 75 mls/hr [id number] IV Last administered on 12/31/20at 23:05; Start 12/31/20 at 22:30 Active Scripts Active Hydrocodone-Apap 5-325 (Hydrocodone Bit/Acetaminophen) 1 Tab Tablet 1 Tab PO PRN Q6HRS PRN Doxycycline Hyclate 100 Mg Tablet 1 Tab PO BID Uhberl-Ouwzznoo-Ekvz 50-325-40 (Butalb/Acetaminophen/Caffeine) 1 Each Tablet 1 Each PO Q6HRS PRN Orphenadrine Citrate 100 Mg Tablet.er 100 Mg PO BID Reported Sertraline Hcl 50 Mg Tablet 50 Mg PO DAILY Lisinopril 10 Mg Tablet 1 Tab PO DAILY Hydrochlorothiazide Tablet (Hydrochlorothiazide) 12.5 Mg Tablet 25 Mg PO DAILY Protonix (Pantoprazole Sodium) 20 Mg Tablet. 40 Mg PO DAILY Prilosec Otc (Omeprazole Magnesium) 20 Mg Tablet. 20 Mg PO DAILY Allergies Allergies: Coded Allergies: dexamethasone (Verified Allergy, Severe, sob, 12/16/20) nalbuphine (Verified Allergy, Severe, sob, 12/16/20) Corticosteroids (Glucocorticoids) (Verified Allergy, Intermediate, Rash, 12/16/20) "CORTISONES" Latex, Natural Rubber (Verified Allergy, Intermediate, 12/16/20) ROS General: YES: Other; No: Chills PSYCHOLOGICAL ROS: No: Anxiety, Depression Eyes: No Blurry vision, No Double vision HEENT: No: Heacaches, Sore Throat Hematological and Lymphatic: No: Bleeding Problems, Blood Clots Respiratory: No: Cough, SOB with excertion Cardiovascular: No Chest Pain, No Palpitations Gastrointestinal: Yes Other (see hpi) Genitourinary: No Dysuria, No Hematuria Musculoskeletal: No Joint Pain Neurological: No Impaired Coord/balance, No Numbness/Tingling Skin: No Pruritus, No Rash Physical Exam General: Alert, Oriented X3, Cooperative, No acute distress HEENT: Atraumatic, PERRLA Lungs: Clear to auscultation, Normal air movement Heart: Regular rate, Normal S1, Normal S2 Abdomen: Soft, Other (mild ttp epigastric ) Extremities: No clubbing, No cyanosis Skin: No rashes, No breakdown Neuro: Normal gait, Normal speech Psych/Mental Status: Mental status NL, Mood NL MUSCULOSKELETAL: No deformity, No swelling Vitals VITALS Vital Signs Date Time Temp Pulse Resp B/P (MAP) Pulse Ox O2 Delivery O2 Flow Rate FiO2 01/01/21 07:00 98.2 74 17 105/59 (74) 98 Room Air 98.2 Labs Labs Laboratory Tests Test 12/30/20 21:11 12/30/20 23:25 01/01/21 06:20 White Blood Count 11.8 x10^3/uL (4.0-11.0) 7.6 x10^3/uL (4.0-11.0) Red Blood Count 4.38 x10^6/uL (3.50-5.40) 3.68 x10^6/uL (3.50-5.40) Hemoglobin 12.4 g/dL (12.0-15.5) 10.3 g/dL (12.0-15.5) Hematocrit 36.6 % (36.0-47.0) 31.3 % (36.0-47.0) Mean Corpuscular Volume 84 fL (79-100) 85 fL (79-100) Mean Corpuscular Hemoglobin 28 pg (25-35) 28 pg (25-35) Mean Corpuscular Hemoglobin Concent 34 g/dL (31-37) 33 g/dL (31-37) Red Cell Distribution Width 13.5 % (11.5-14.5) 13.3 % (11.5-14.5) Platelet Count 521 x10^3/uL (140-400) 372 x10^3/uL (140-400) Neutrophils (%) (Auto) 68 % (31-73) Lymphocytes (%) (Auto) 23 % (24-48) Monocytes (%) (Auto) 7 % (0-9) Eosinophils (%) (Auto) 1 % (0-3) Basophils (%) (Auto) 1 % (0-3) Neutrophils # (Auto) 8.0 x10^3/uL (1.8-7.7) Lymphocytes # (Auto) 2.8 x10^3/uL (1.0-4.8) Monocytes # (Auto) 0.8 x10^3/uL (0.0-1.1) Eosinophils # (Auto) 0.1 x10^3/uL (0.0-0.7) Basophils # (Auto) 0.2 x10^3/uL (0.0-0.2) Sodium Level 136 mmol/L (136-145) 141 mmol/L (136-145) Potassium Level 3.9 mmol/L (3.5-5.1) 4.2 mmol/L (3.5-5.1) Chloride Level 99 mmol/L (98-107) 105 mmol/L (98-107) Carbon Dioxide Level 29 mmol/L (21-32) 28 mmol/L (21-32) Anion Gap 8 (6-14) 8 (6-14) Blood Urea Nitrogen 13 mg/dL (7-20) 19 mg/dL (7-20) Creatinine 0.7 mg/dL (0.6-1.0) 0.7 mg/dL (0.6-1.0) Estimated GFR (Cockcroft-Gault) 90.9 90.9 BUN/Creatinine Ratio 19 (6-20) 27 (6-20) Glucose Level 95 mg/dL (70-99) 102 mg/dL (70-99) Calcium Level 9.8 mg/dL (8.5-10.1) 8.9 mg/dL (8.5-10.1) Total Bilirubin 0.5 mg/dL (0.2-1.0) 0.4 mg/dL (0.2-1.0) Aspartate Amino Transf (AST/SGOT) 42 U/L (15-37) 31 U/L (15-37) Alanine Aminotransferase (ALT/SGPT) 79 U/L (14-59) 62 U/L (14-59) Alkaline Phosphatase 132 U/L (46-116) 101 U/L (46-116) Total Protein 8.5 g/dL (6.4-8.2) 7.1 g/dL (6.4-8.2) Albumin 3.9 g/dL (3.4-5.0) 3.3 g/dL (3.4-5.0) Albumin/Globulin Ratio 0.8 (1.0-1.7) 0.9 (1.0-1.7) Lipase 109 U/L (73-393) Urine Collection Type Unknown Urine Color Yellow Urine Clarity Clear Urine pH 6.0 (<5.0-8.0) Urine Specific [place] 1.020 (1.000-1.030) Urine Protein Negative mg/dL (NEG-TRACE) Urine Glucose (UA) Negative mg/dL (NEG) Urine Ketones (Stick) Negative mg/dL (NEG) Urine Blood Negative (NEG) Urine Nitrite Negative (NEG) Urine Bilirubin Negative (NEG) Urine Urobilinogen Dipstick 0.2 mg/dL (0.2 mg/dL) Urine Leukocyte Esterase Negative (NEG) Urine RBC 0 /HPF (0-2) Urine WBC Occ /HPF (0-4) Urine Squamous Epithelial Cells Mod /LPF Urine Bacteria 0 /HPF (0-FEW) Urine Mucus Mod /LPF Laboratory Tests Test 01/01/21 06:20 White Blood Count 7.6 x10^3/uL (4.0-11.0) Red Blood Count 3.68 x10^6/uL (3.50-5.40) Hemoglobin 10.3 g/dL (12.0-15.5) Hematocrit 31.3 % (36.0-47.0) Mean Corpuscular Volume 85 fL (79-100) Mean Corpuscular Hemoglobin 28 pg (25-35) Mean Corpuscular Hemoglobin Concent 33 g/dL (31-37) Red Cell Distribution Width 13.3 % (11.5-14.5) Platelet Count 372 x10^3/uL (140-400) Sodium Level 141 mmol/L (136-145) Potassium Level 4.2 mmol/L (3.5-5.1) Chloride Level 105 mmol/L (98-107) Carbon Dioxide Level 28 mmol/L (21-32) Anion Gap 8 (6-14) Blood Urea Nitrogen 19 mg/dL (7-20) Creatinine 0.7 mg/dL (0.6-1.0) Estimated GFR (Cockcroft-Gault) 90.9 BUN/Creatinine Ratio 27 (6-20) Glucose Level 102 mg/dL (70-99) Calcium Level 8.9 mg/dL (8.5-10.1) Total Bilirubin 0.4 mg/dL (0.2-1.0) Aspartate Amino Transf (AST/SGOT) 31 U/L (15-37) Alanine Aminotransferase (ALT/SGPT) 62 U/L (14-59) Alkaline Phosphatase 101 U/L (46-116) Total Protein 7.1 g/dL (6.4-8.2) Albumin 3.3 g/dL (3.4-5.0) Albumin/Globulin Ratio 0.9 (1.0-1.7) Assessment/Plan Assessment/Plan abdominal pain, low GB EF 6% would like to get pt recovered from surgery --only 2 weeks post op---would attempt 4-6 weeks recovery before any additional surgeries low fat diet, pain control CORA JAMA MD 01/01/21 8264: CONSULT Assessment/Plan Assessment/Plan Pt seen and examined. Agree with Ms. Guan's note Pt reports pain improved mild epigastric abd pain low fat diet and f/u for elective cholecystectomy. Thanks for consult! MIKEL GUAN BUSINESS PERFORMANCE MANAGER Jan 01, 2021 09:13 CORA JAMA MD Jan 01, 2021 12:58
--- NOTE | 2021-01-01 09:40 | NUR ---
SW following. Discussed with RN, pt from home with , room air, NPO. GI and surgery following. Surgery has asked dietary to discuss a bland diet with pt. RN advised no SW needs at this time, possible discharge home with self care today. SW will continue to follow.
[2021-01-01] MEDS: PROCHLORPERAZINE 10 MG/2 ML VIAL. IV PRN (10:41)
--- NOTE | 2021-01-01 10:43 | PDOC ---
Date of Service: DATE: 01/01/21 TIME: 10:39 Subjective: Subjective: Vomited last night after morphine. Pain is better. Objective: Vital Signs: Vital Signs Date Time Temp Pulse Resp B/P (MAP) Pulse Ox O2 Delivery O2 Flow Rate FiO2 01/01/21 07:00 98.2 74 17 105/59 (74) 98 Room Air 98.2 Labs: Laboratory Tests Test 01/01/21 06:20 White Blood Count 7.6 x10^3/uL Red Blood Count 3.68 x10^6/uL Hemoglobin 10.3 g/dL Hematocrit 31.3 % Mean Corpuscular Volume 85 fL Mean Corpuscular Hemoglobin 28 pg Mean Corpuscular Hemoglobin Concent 33 g/dL Red Cell Distribution Width 13.3 % Platelet Count 372 x10^3/uL Sodium Level 141 mmol/L Potassium Level 4.2 mmol/L Chloride Level 105 mmol/L Carbon Dioxide Level 28 mmol/L Anion Gap 8 Blood Urea Nitrogen 19 mg/dL Creatinine 0.7 mg/dL Estimated GFR (Cockcroft-Gault) 90.9 BUN/Creatinine Ratio 27 Glucose Level 102 mg/dL Calcium Level 8.9 mg/dL Total Bilirubin 0.4 mg/dL Aspartate Amino Transf (AST/SGOT) 31 U/L Alanine Aminotransferase (ALT/SGPT) 62 U/L Alkaline Phosphatase 101 U/L Total Protein 7.1 g/dL Albumin 3.3 g/dL Albumin/Globulin Ratio 0.9 Imaging: HIDA 12/31/20 IMPRESSION: 1. Decreased gallbladder ejection fraction 6% suggesting biliary dyskinesia. PE: GEN: NAD LUNGS: CTAB HEART: RRR ABD: soft, less tender, fairly quiet BS NEURO/PSYCH: A & O 3 A/P: Epigastric pain, n/v - pain improved Decreased GB EF -- Appreciate surgery eval - ideally will wait 4-6 weeks after recent surgery before cholecystectomy. Continue B12 and PPI. ADAT, DC per primary. Justicifation of Admission Dx: Justifications for Admission: Justification of Admission Dx: Yes VICENTE GARDNER Jan 01, 2021 10:43
[2021-01-01 11:00] VITALS: BP 119/58
[2021-01-01] MEDS: IV NORMAL SALINE 1000ML BAG 1,000 ML IV SCH ×2 (12:14→22:40)
[2021-01-01] MEDS ORDERED: VENL50TA PO (14:12)
--- NOTE | 2021-01-01 14:13 | DISCH ---
DISCHARGE INSTRUCTIONS Condition on Discharge Condition on Discharge: Stable Activity After Discharge Activity Instructions for Disc: Activity as tolerated Exercise Instruction after Dis: Walk 15 min, 3 x per day Driving Instructions after Dis: Do not drive today Diet after Discharge Diet after Discharge: Low Fat, GI Soft Follow-Up Follow up with: PCP within 2 weeks of discharge for your H. pylori results Follow Up With: General surgery regarding her biliary dyskinesia SHERRILL WALL MD Jan 01, 2021 14:13
[2021-01-01] MEDS ORDERED: PANT40TA77 PO (14:15)
[2021-01-01] MEDS: POLYETHYLENE GLYCOL 3350 17 GM PACKET. PO SCH ×3 (14:40→22:36)
[2021-01-01 15:00] VITALS: BP 117/61
[2021-01-01 19:30] VITALS: BP 136/60
[2021-01-01 23:08] VITALS: BP 99/40
[2021-01-02] MEDS: POLYETHYLENE GLYCOL 3350 17 GM PACKET. PO SCH ×3 (03:00→11:00)
[2021-01-02 03:07] VITALS: BP 107/60
[2021-01-02] MEDS: PANTOPRAZOLE IV PUSH 40 MG VIAL. IVP SCH (06:07)
[2021-01-02 07:00] VITALS: BP 87/47
[2021-01-02] MEDS: VENLAFAXINE 50 MG TABLET. PO SCH (08:55)
--- NOTE | 2021-01-02 09:53 | NUR ---
SW following. Discussed with RN, pt from home with , room air, low fat diet. Discharge order for home with self care. RN advised no SW needs.
--- NOTE | 2021-01-02 10:17 | PDOC ---
MIKEL GUAN WAREHOUSE ADMINISTRATIVE ASSISTANT 01/02/21 1017: SURGICAL PROGRESS NOTE DATE: 01/02/21 TIME: 10:16 Subjective feeling better no pain or nausea Vital Signs Vital Signs Date Time Temp Pulse Resp B/P (MAP) Pulse Ox O2 Delivery O2 Flow Rate FiO2 01/02/21 07:00 97.3 69 18 87/47 (60) 97 Room Air 97.3 I&O Intake and Output 01/02/21 07:00 Intake Total 1720 ml Balance 1720 ml Intake Oral 720 ml IV Total 1000 ml # Voids 7 General: Alert, Oriented X3, Cooperative Abdomen: Soft, No tenderness Labs Laboratory Tests Test 01/01/21 06:20 White Blood Count 7.6 x10^3/uL (4.0-11.0) Red Blood Count 3.68 x10^6/uL (3.50-5.40) Hemoglobin 10.3 g/dL (12.0-15.5) Hematocrit 31.3 % (36.0-47.0) Mean Corpuscular Volume 85 fL (79-100) Mean Corpuscular Hemoglobin 28 pg (25-35) Mean Corpuscular Hemoglobin Concent 33 g/dL (31-37) Red Cell Distribution Width 13.3 % (11.5-14.5) Platelet Count 372 x10^3/uL (140-400) Sodium Level 141 mmol/L (136-145) Potassium Level 4.2 mmol/L (3.5-5.1) Chloride Level 105 mmol/L (98-107) Carbon Dioxide Level 28 mmol/L (21-32) Anion Gap 8 (6-14) Blood Urea Nitrogen 19 mg/dL (7-20) Creatinine 0.7 mg/dL (0.6-1.0) Estimated GFR (Cockcroft-Gault) 90.9 BUN/Creatinine Ratio 27 (6-20) Glucose Level 102 mg/dL (70-99) Calcium Level 8.9 mg/dL (8.5-10.1) Total Bilirubin 0.4 mg/dL (0.2-1.0) Aspartate Amino Transf (AST/SGOT) 31 U/L (15-37) Alanine Aminotransferase (ALT/SGPT) 62 U/L (14-59) Alkaline Phosphatase 101 U/L (46-116) Total Protein 7.1 g/dL (6.4-8.2) Albumin 3.3 g/dL (3.4-5.0) Albumin/Globulin Ratio 0.9 (1.0-1.7) Problem List Problems Medical Problems: (1) Abdominal pain Status: Acute (2) Nausea & vomiting Status: Acute Assessment/Plan low fat diet FU in clinic in 2 weeks Justicifation of Admission Dx: Justifications for Admission: Justification of Admission Dx: Yes CORA JAMA MD 01/02/21 1338: SURGICAL PROGRESS NOTE Assessment/Plan Pt seen and examined. Agree with Ms. Guan's note Pt feels well and ready for d/c f/u in office to consider cholecystectomy MIKEL GUAN WAREHOUSE ADMINISTRATIVE ASSISTANT Jan 02, 2021 10:17 CORA JAMA MD Jan 02, 2021 13:38
--- NOTE | 2021-01-02 10:44 | PDOC ---
Date of Service: DATE: 01/02/21 TIME: 10:42 Subjective: Subjective: Feels much better, tolerating diet, hasn't need pain medication for a couple days. Says she can go home now because she was able to pass stool for H. pylori sample. Objective: Vital Signs: Vital Signs Date Time Temp Pulse Resp B/P (MAP) Pulse Ox O2 Delivery O2 Flow Rate FiO2 01/02/21 07:00 97.3 69 18 87/47 (60) 97 Room Air 97.3 PE: GEN: NAD LUNGS: CTAB HEART: RRR ABD: S/ND/NT NEURO/PSYCH: A & O 3 A/P: Epigastric pain, n/v - resolved Decreased GB EF -- DC per primary. Continue B12 and PPI. Follow-up w/ surgery as planned. Justicifation of Admission Dx: Justifications for Admission: Justification of Admission Dx: Yes VICENTE GARDNER Jan 02, 2021 10:44
[2021-01-02 11:00] VITALS: BP 118/57
[2021-01-02] MEDS: CYANOCOBALAMIN (VITAMIN B-12) 1,000 MCG/ML VIAL. IM SCH (11:18)
--- NOTE | 2021-01-02 12:50 | NUR ---
Patient discharge home with self care today via wheelchair accompanied by this RN. Patient is alert, IV removed, discharge paperwork given to patient. Stool sample was collected before patient discharge home today. Patient will call for follow up appointment to see PCP and Dr. Hernandez. Patient verbalized understanding of follow up and discharge instruction.
--- NOTE | 2021-01-05 08:34 | PDOC3 ---
[facility]-Discharge Summary Date of Admission: Date of Admission: Dec 31, 2020 Date of Discharge: Date of Discharge: Jan 02, 2021 Discharge Diagnosis: Discharge Diagnosis: Intractable nausea vomiting Biliary dyskinesia Acute dyspepsia GERD Mildly elevated transaminitis Hepatic steatosis on imaging Reactive leukocytosis and thrombocytosis Consults: Consults: surg recs: low fat diet FU in clinic in 2 weeks GI recs: PPI and B12 continue Hospital Course: Hospital Course: 45 year old female presents with the chief complaint of epigastric right upper quadrant abdominal pain. Patient states she has had abdominal pain on and off since December 15. Patient's pain is associated with nausea vomiting and initially episodes of diarrhea. Patient states all day today she has been vomiting. She states her pain in her epigastric right upper quadrant region is a 10 out of 10. Patient's pain does not radiate. Patient was evaluated on 12/17 and was admitted to the hospital and underwent a left oophorectomy. Post-procedure patient was evaluated for pain along her surgical site. CT abdomen pelvis was performed at that time found to show no acute abnormalities associated with surgical procedure. The provider discussed the patient with the surgeon and patient was discharged home on doxycycline. Patient states she tried to take the doxycycline previously prescribed to her but it made her very drowsy and dizzy so she did not complete the medication. Patient was also prescribed hydrocodone which she states mildly helped with her pain. HIDA scan completed shows biliary dyskinesia. Patient has had Hx of H pylori infection. [facility] send off for stool Ag and have her f/u with her PCP for further treatment if positive. By day of discharge, pt was clinically stable and ready for discharge. Rest of hospital course was uneventful Disposition: Disposition/Orders: D/C to Home Activity: Activity: Resume previous activity Diet: Diet: Soft Medications: Home Meds Active Scripts Pantoprazole Sodium (PROTONIX ) 40 Mg Tablet.dr, 40 MG PO DAILYAC for GERD for 30 Days, #30 TAB Prov:SHERRILL WALL MD 01/01/21 Venlafaxine Hcl (VENLAFAXINE HCL) 50 Mg Tablet, 50 MG PO DAILY for dyspepsia for 30 Days, #30 TAB Prov:SHERRILL WALL MD 01/01/21 Hydrocodone Bit/Acetaminophen (HYDROCODONE-APAP 5-325 ) 1 Tab Tablet, 1 TAB PO PRN Q6HRS PRN for PAIN, #14 TAB 0 Refills Prov:JANIE DURÁN CREDIT RELATIONSHIP MANAGER 12/24/20 Reported Medications Lisinopril (LISINOPRIL) 10 Mg Tablet, 1 TAB PO DAILY for htn, #30 TAB 5 Refills 12/15/20 Hydrochlorothiazide (HYDROCHLOROTHIAZIDE TABLET) 12.5 Mg Tablet, 25 MG PO DAILY for DIURETIC, TAB 0 Refills 12/15/20 Omeprazole Magnesium (PRILOSEC OTC) 20 Mg Tablet.dr, 20 MG PO DAILY, TAB 03/24/18 Discontinued Reported Medications Sertraline Hcl (SERTRALINE HCL) 50 Mg Tablet, 50 MG PO DAILY for ANTI- DEPRESSANT, TAB 0 Refills 12/15/20 Pantoprazole Sodium (PROTONIX) 20 Mg Tablet.dr, 40 MG PO DAILY for gerd, TAB 12/15/20 Discontinued Scripts Doxycycline Hyclate (DOXYCYCLINE HYCLATE) 100 Mg Tablet, 1 TAB PO BID, #14 TAB Prov:JANIE DURÁN CREDIT RELATIONSHIP MANAGER 12/24/20 Butalb/Acetaminophen/Caffeine ([id number]-[id number]-GOKB 50-325-40) 1 Each Tablet, 1 EACH PO Q6HRS PRN for HEADACHE, #14 TAB Prov:KAITLYN MORRIS DO 03/21/19 Orphenadrine Citrate (ORPHENADRINE CITRATE) 100 Mg Tablet.er, 100 MG PO BID, #14 Prov:KAITLYN MORRIS DO 03/21/19 Scheduled Hydrochlorothiazide (Hydrochlorothiazide Tablet), 25 MG PO DAILY, (Reported) Lisinopril (Lisinopril), 1 TAB PO DAILY, (Reported) Omeprazole Magnesium (Prilosec Otc), 20 MG PO DAILY, (Reported) Pantoprazole Sodium (Protonix ), 40 MG PO DAILYAC Venlafaxine Hcl (Venlafaxine Hcl), 50 MG PO DAILY Scheduled PRN Hydrocodone Bit/Acetaminophen (Hydrocodone-Apap 5-325 ), 1 TAB PO PRN Q6HRS PRN for PAIN Discontinued Medications Butalb/Acetaminophen/Caffeine (Fouchj-Bdpkupxt-Hpne 50-325-40), 1 EACH PO Q6HRS PRN for HEADACHE Doxycycline Hyclate (Doxycycline Hyclate), 1 TAB PO BID Orphenadrine Citrate (Orphenadrine Citrate), 100 MG PO BID Pantoprazole Sodium (Protonix), 40 MG PO DAILY, (Reported) Sertraline Hcl (Sertraline Hcl), 50 MG PO DAILY, (Reported) Total Time: Total Time: Total time spent was 35 minutes in preparing scripts, discharge planning with SW and RN, and preparing this discharge summary. Patient seen and examined on day of discharge. Justicifation of Admission Dx: Justifications for Admission: Justification of Admission Dx: Yes SHERRILL WALL MD Jan 05, 2021 08:34
== END 2021-01-02 13:00 | disposition home or self-care (01) ==
LOC: ER 20:25 → 4 NORTH 12-31 00:29
PROVIDERS: ADMIT Internal Medicine; ATTEND Internal Medicine
DX: K30 Functional dyspepsia (principal); K82.8 Other specified diseases of gallbladder; K59.89 Other specified functional intestinal disorders; I10 Essential (primary) hypertension; K76.0 Fatty (change of) liver, not elsewhere classified; K81.0 Acute cholecystitis; D64.9 Anemia, unspecified; M32.9 Systemic lupus erythematosus, unspecified; R11.2 Nausea with vomiting, unspecified; R74.01 Elevation of levels of liver transaminase levels; D47.3 Essential (hemorrhagic) thrombocythemia; D72.829 Elevated white blood cell count, unspecified; K21.9 Gastro-esophageal reflux disease without esophagitis; K81.1 Chronic cholecystitis; D72.828 Other elevated white blood cell count; Z86.19 Personal history of other infectious and parasitic diseases; Z98.891 History of uterine scar from previous surgery; Z90.710 Acquired absence of both cervix and uterus; Z90.721 Acquired absence of ovaries, unilateral
CPT/HCPCS: 36415; 76705; 78227; 80053; 81001; 83690; 85025; 85027; 87338; 96361; 96372; 96374; 96375; 96376; 99284; A9537; C9113; G0378; J0780; J1885; J2270; J2405; J2805; J3420; J7030; G0379

== ENCOUNTER 2021-01-06 08:39 | Inpatient (IN) | payer MEDICAID ==
[~2021-01-06] VITALS: Ht 157.5 cm; Wt 99.0 kg
[~2021-01-06 08:39] MED LIST changes: +PANT40TA77 PO; +VENL50TA PO
[2021-01-06 11:54] LABS: BILIRUBIN,URINE NEGATIVE (NEG); CLARITY,URINE CLEAR; COLOR,URINE YELLOW; NITRITE,URINE NEGATIVE (NEG); PH,URINE 8.5 (<5.0-8.0); PROTEIN,URINE NEGATIVE (NEG-TRACE); UROBILINOGEN,URINE 0.2 mg/dL (0.2 mg/dL)
[2021-01-06] MEDS ORDERED: fentaNYL PF VIAL 100 MCG/2 ML VIAL IV ONE (12:00)
[2021-01-06] MEDS ORDERED: ONDANSETRON PF 4 MG/2 ML VIAL. IV ONE (12:00)
[2021-01-06] MEDS ORDERED: IV NORMAL SALINE 1000ML BAG 1,000 ML IV ONE (12:00)
[2021-01-06 12:07] LABS: BACTERIA,URINE 0 /HPF (0-FEW); RBC,URINE 0 /HPF (0-2); WBC,URINE OCC /HPF (0-4)
[2021-01-06 12:35] LABS: BASO % 0 % (0-3); EOS % 0 % (0-3); HEMATOCRIT 35.8 % (36.0-47.0); LYMPH # 1.7 x10^3/uL (1.0-4.8); LYMPH % 18 % (24-48); MEAN CORPUSCULAR HEMOGLOBIN 29 pg (25-35); MEAN CORPUSCULAR HGB CONC 34 g/dL (31-37); MEAN CORPUSCULAR VOLUME 85 fL (79-100); MONO # 0.6 x10^3/uL (0.0-1.1); MONO % 6 % (0-9); NEUT # 7.4 x10^3/uL (1.8-7.7); NEUT % 76 % (31-73); PLATELET COUNT 406 x10^3/uL (140-400); RED BLOOD COUNT 4.23 x10^6/uL (3.50-5.40); RED CELL DISTRIBUTION WIDTH 13.5 % (11.5-14.5); WHITE BLOOD COUNT 9.7 x10^3/uL (4.0-11.0)
[2021-01-06 12:44] LABS: CALCIUM 9.1 mg/dL (8.5-10.1); CREATININE 0.6 mg/dL (0.6-1.0); GFR 108.6; POTASSIUM 4.3 mmol/L (3.5-5.1)
[2021-01-06] MEDS ORDERED: CONTRAST GIVEN. MC PRN (12:45)
[2021-01-06] MEDS ORDERED: IOHEXOL 300 MG/ML 100ML VIAL. IV ONE (12:45)
[2021-01-06 12:49] LABS: ALBUMIN 3.5 g/dL (3.4-5.0); ALBUMIN/GLOBULIN RATIO 0.8 (1.0-1.7); TOTAL BILIRUBIN 0.3 mg/dL (0.2-1.0); TOTAL PROTEIN 7.7 g/dL (6.4-8.2)
[2021-01-06] MEDS ORDERED: IOHEXOL 300 MG/ML 100ML VIAL. ONE (12:50)
--- NOTE | 2021-01-06 13:20 | RAD ---
CT ABDOMEN+PELVIS W History: Left flank pain, epigastric pain, nausea and vomiting diarrhea. Comparison: CT abdomen and pelvis 12/24/2020, 12/15/2020. Technique: CT of the abdomen and pelvis with intravenous contrast. Findings: Lung bases: Mild dependent changes in the lung bases. Normal heart. General abdomen: No ascites. No free air. Mesenteric edema and fat stranding in the anterior lower ab dominal wall at site of recent surgical incision. No focal fluid collection to suggest abscess. Liver : Normal in size and attenuation. No masses seen. Gallbladder/Biliary Tree: Normal gallbladder. No intrahepatic or extrahepatic biliary ductal dilatati on. Pancreas: Normal. Spleen: Normal in size and attenuation. Adrenal glands: Normal. Kidneys: No hydronephrosis or hydroureter. No renal masses identified. Gastrointestinal: Unremarkable decompressed stomach. Progressive dilation and fecalization of left lo wer quadrant small bowel loops with a couple dilated loops demonstrating equalization of the internal material and thickened wall emanating from a central tethering point best appreciated on axial image 63. The more distal small bowel is relatively decompressed. Unremarkable ascending and transverse co david. Mild wall thickening at the sigmoid colon likely secondary to adjacent inflammatory changes. Lymph nodes: No lymphadenopathy. Vessels: Unremarkable. Pelvic organs: Status post left ovarian mass excision. The bladder demonstrates tethering to the lowe r abdominal wall surgical incision. Soft tissues: Mild subcutaneous stranding from recent surgical incision. Bones: No acute or aggressive lesions. Impression: 1. Small bowel obstruction with dilated loops in the lower abdomen terminating from a central tether ing point, likely postsurgical adhesions, cannot exclude closed loop obstruction. Surgical consultati on is recommended. 2. Tethering of the anterior superior bladder to the lower anterior abdominal wall at the site of re cent surgical excision. Adjacent inflammatory changes in the fat without abscess identified. ------ Exposure: One or more of the following individualized dose reduction techniques were utilized for thi s examination: 1. Automated exposure control 2. Adjustment of the mA and/or kV according to patient size 3. Use of iterative reconstruction technique. Electronically signed by: Ferdinand Luna MD (01/06/2021 1:18 PM) [facility]
--- NOTE | 2021-01-06 13:39 | ED.ADGEN ---
Past Medical History Past Medical History: Anemia Additional Past Medical Histor: lupus, ovarian cyst Past Surgical History: , Hysterectomy Smoking Status: Never Smoker Alcohol Use: None Drug Use: None General Adult EDM: Chief Complaint: ABDOMINAL PAIN HPI: HPI: Patient is a 45 year old female, accompanied by a friend, who presents emergency department with complaints of left-sided abdominal pain, nausea, vomiting, and diarrhea. Patient reports that she had surgery at the beginning of the month after having an ovarian cyst, she was then evaluated last week and admitted to the hospital where she was treated for gallbladder problems. Patient states she was able to tolerate protein drinks on Tuesday so yesterday she started following the dietary restrictions that were provided to her upon discharge. Overnight she developed nausea, vomiting, diarrhea, and left flank and epigastric abdominal pain. Patient states she is unable to keep anything down. Patient reports at least 5 episodes of nausea, vomiting, and diarrhea today. She reports of bright red blood per on the toilet paper with the last bowel movement, patient has a history of hemorrhoids she denies any blood in the stool. Patient denies any fever, back pain, dysuria, hematuria, cough, rafael rtness of breath, chest pain, palpitations, or rash. She currently rates her pain a 10 out of 10 on pain scale, she denies any alleviating factors. Review of Systems: Review of Systems: Complete ROS is negative unless otherwise noted in HPI. Current Medications: Current Medications Medications (Trade) Dose Ordered Sig/[facility] Start Time Stop Time Status Last Admin Dose Admin Fentanyl Citrate (Fentanyl 2ml Vial) 50 mcg 1X ONCE 01/06/21 12:00 01/06/21 12:02 DC 01/06/21 13:25 50 MCG Info (CONTRAST GIVEN -- Rx MONITORING) 1 each PRN DAILY PRN 01/06/21 12:45 01/08/21 12:44 Iohexol (Omnipaque 300 Mg/ml) 100 ml STK-MED ONCE 01/06/21 12:50 01/06/21 12:51 DC Ondansetron HCl (Zofran) 4 mg 1X ONCE 01/06/21 12:00 01/06/21 12:02 DC 01/06/21 13:24 4 MG Sodium Chloride 1,000 ml @ 1,000 mls/hr 1X ONCE 01/06/21 12:00 01/06/21 12:59 DC 01/06/21 13:24 1,000 MLS/HR Allergies: Allergies: Allergies Coded Allergies Type Severity Reaction Last Updated Verified dexamethasone Allergy Severe sob 12/16/20 Yes nalbuphine Allergy Severe sob 12/16/20 Yes Corticosteroids (Glucocorticoids) Allergy Intermediate Rash 12/16/20 Yes Latex, Natural Rubber Allergy Intermediate 12/16/20 Yes Physical Exam: PE: See Above Constitutional: Well developed, well nourished, moderate distress, appears uncomfortable, obese HENT: Normocephalic, atraumatic, bilateral external ears normal, nose normal. [] Eyes: PERRLA, EOMI, conjunctiva normal, no discharge. [] Neck: Normal range of motion, no stridor. [] Cardiovascular:Heart rate regular rhythm Lungs & Thorax: Respirations even and unlabored, no retractions, no respiratory distress Abdomen: soft, epigastric and left sided tenderness to palpation, no rebound tenderness, no guarding, no palpable mass, no pulsatile mass Skin: Warm, dry, no erythema, no rash. [] Extremities: No cyanosis, ROM intact, no edema. [] Neurologic: Alert and oriented X 3, no focal deficits noted. [] Psychologic: Affect normal, judgement normal, mood normal. [] Current Patient Data: Labs: Laboratory Tests Test 01/06/21 11:35 01/06/21 12:24 Urine Collection Type Unknown Urine Color Yellow Urine Clarity Clear Urine pH 8.5 (<5.0-8.0) Urine Specific [place] 1.020 (1.000-1.030) Urine Protein Negative mg/dL (NEG-TRACE) Urine Glucose (UA) Negative mg/dL (NEG) Urine Ketones (Stick) Negative mg/dL (NEG) Urine Blood Negative (NEG) Urine Nitrite Negative (NEG) Urine Bilirubin Negative (NEG) Urine Urobilinogen Dipstick 0.2 mg/dL (0.2 mg/dL) Urine Leukocyte Esterase Negative (NEG) Urine RBC 0 /HPF (0-2) Urine WBC Occ /HPF (0-4) Urine Squamous Epithelial Cells Occ /LPF Urine Bacteria 0 /HPF (0-FEW) White Blood Count 9.7 x10^3/uL (4.0-11.0) Red Blood Count 4.23 x10^6/uL (3.50-5.40) Hemoglobin 12.0 g/dL (12.0-15.5) Hematocrit 35.8 % (36.0-47.0) L Mean Corpuscular Volume 85 fL (79-100) Mean Corpuscular Hemoglobin 29 pg (25-35) Mean Corpuscular Hemoglobin Concent 34 g/dL (31-37) Red Cell Distribution Width 13.5 % (11.5-14.5) Platelet Count 406 x10^3/uL (140-400) H Neutrophils (%) (Auto) 76 % (31-73) H Lymphocytes (%) (Auto) 18 % (24-48) L Monocytes (%) (Auto) 6 % (0-9) Eosinophils (%) (Auto) 0 % (0-3) Basophils (%) (Auto) 0 % (0-3) Neutrophils # (Auto) 7.4 x10^3/uL (1.8-7.7) Lymphocytes # (Auto) 1.7 x10^3/uL (1.0-4.8) Monocytes # (Auto) 0.6 x10^3/uL (0.0-1.1) Eosinophils # (Auto) 0.0 x10^3/uL (0.0-0.7) Basophils # (Auto) 0.0 x10^3/uL (0.0-0.2) Sodium Level 140 mmol/L (136-145) Potassium Level 4.3 mmol/L (3.5-5.1) Chloride Level 106 mmol/L (98-107) Carbon Dioxide Level 23 mmol/L (21-32) Anion Gap 11 (6-14) Blood Urea Nitrogen 15 mg/dL (7-20) Creatinine 0.6 mg/dL (0.6-1.0) Estimated GFR (Cockcroft-Gault) 108.6 BUN/Creatinine Ratio 25 (6-20) H Glucose Level 93 mg/dL (70-99) Calcium Level 9.1 mg/dL (8.5-10.1) Magnesium Level 2.0 mg/dL (1.8-2.4) Total Bilirubin 0.3 mg/dL (0.2-1.0) Aspartate Amino Transferase (AST) 24 U/L (15-37) Alanine Aminotransferase (ALT) 49 U/L (14-59) Alkaline Phosphatase 115 U/L (46-116) Total Protein 7.7 g/dL (6.4-8.2) Albumin 3.5 g/dL (3.4-5.0) Albumin/Globulin Ratio 0.8 (1.0-1.7) L Lipase 71 U/L (73-393) L Laboratory Tests 01/06/21 12:24 Laboratory Tests 01/06/21 12:24 Vital Signs: Vital Signs Date Time Temp Pulse Resp B/P (MAP) Pulse Ox O2 Delivery O2 Flow Rate FiO2 01/06/21 13:28 64 17 146/87 (106) 97 01/06/21 11:36 98.3 Room Air 98.3 EKG: EKG: [] Heart Score: C/O Chest Pain: No Risk Scores: Score 0 - 3: 2.5% MACE over next 6 weeks - Discharge Home Score 4 - 6: 20.3% MACE over next 6 weeks - Admit for Clinical Observation Score 7 - 10: 72.7% MACE over next 6 weeks - Early Invasive Strategies Radiology/Procedures: Radiology/Procedures: PROCEDURE: CT ABD PELV W/ IV CONTRST ONLY CT ABDOMEN+PELVIS W History: Left flank pain, epigastric pain, nausea and vomiting diarrhea. Comparison: CT abdomen and pelvis 12/24/2020, 12/15/2020. Technique: CT of the abdomen and pelvis with intravenous contrast. Findings: Lung bases: Mild dependent changes in the lung bases. Normal heart. General abdomen: No ascites. No free air. Mesenteric edema and fat stranding in the anterior lower abdominal wall at site of recent surgical incision. No focal fluid collection to suggest abscess. Liver : Normal in size and attenuation. No masses seen. Gallbladder/Biliary Tree: Normal gallbladder. No intrahepatic or extrahepatic biliary ductal dilatation. Pancreas: Normal. Spleen: Normal in size and attenuation. Adrenal glands: Normal. Kidneys: No hydronephrosis or hydroureter. No renal masses identified. Gastrointestinal: Unremarkable decompressed stomach. Progressive dilation and fecalization of left lower quadrant small bowel loops with a couple dilated loops demonstrating equalization of the internal material and thickened wall emanating from a central tethering point best appreciated on axial image 63. The more distal small bowel is relatively decompressed. Unremarkable ascending and transverse colon. Mild wall thickening at the sigmoid colon likely secondary to adjacent inflammatory changes. Lymph nodes: No lymphadenopathy. Vessels: Unremarkable. Pelvic organs: Status post left ovarian mass excision. The bladder demonstrates tethering to the lower abdominal wall surgical incision. Soft tissues: Mild subcutaneous stranding from recent surgical incision. Bones: No acute or aggressive lesions. Impression: 1. Small bowel obstruction with dilated loops in the lower abdomen terminating from a central tethering point, likely postsurgical adhesions, cannot exclude closed loop obstruction. Surgical consultation is recommended. 2. Tethering of the anterior superior bladder to the lower anterior abdominal wall at the site of recent surgical excision. Adjacent inflammatory changes in the fat without abscess identified. ------ Exposure: One or more of the following individualized dose reduction techniques were utilized for this examination: 1. Automated exposure control 2. Adjustment of the mA and/or kV according to patient size 3. Use of iterative reconstruction technique. Electronically signed by: Ferdinand Luna MD (01/06/2021 1:18 PM) [facility][] Course & Med Decision Making: Course & Med Decision Making Pertinent Labs and Imaging studies reviewed. (See chart for details) [id number]-spoke with Dr. Lora who is the admitting physician, and care was assumed following discussion of patient. Will admit patient for small bowel obstruction, nausea and vomiting. Will notify surgeon, advised that NG tube had been ordered to low intermittent suction. Will keep patient n.p.o. with NS at 125 mils per hour. Patient's vital signs stable. Patient remains afebrile, appears nontoxic, respir ations even and unlabored. Patient will be admitted to the medical/surgical floor. Patient's case and plan of care also discussed with Dr. Laguna [id number] Dr. Hernandez of need for consult, will notify Dr. POWERS of patient being admitted with small bowel obstruction after recent surgery performed by her. As requested by Dr. HERNANDEZ 1402-Advised Dr. Powers of patient being admitted for SBO after recent surgery. Dr. Hernandez has been consulted, she will evaluate pt in the morning. The patient refused NG tube insertion in the ER, Dr. Regan is aware of patient refusal. [] Dragon Disclaimer: Dragon Disclaimer: This electronic medical record was generated, in whole or in part, using a voice recognition dictation system. Departure Departure Impression: Primary Impression: SBO (small bowel obstruction) Additional Impressions: Nausea and vomiting Left sided abdominal pain Disposition: ADMITTED INPATIENT Admitting Physician: GUERLINE Durand) Condition: STABLE Referrals: MARITA AGUILERA MD (PCP) Attending Signature Attending Signature I have participated in the care of this patient and I have reviewed and agree with all pertinent clinical information above including history, exam, and recommendations. Problem Qualifiers ARNULFO AMARAL APRN Jan 06, 2021 13:38 CHARLES LAGUNA MD Jan 06, 2021 18:27
[2021-01-06] MEDS ORDERED: MORPHINE SULFATE 2 MG/ML VIAL. IV PRN (13:45)
[2021-01-06] MEDS ORDERED: BISACODYL 10 MG SUPP.RECT. PR PRN (13:45)
[2021-01-06] MEDS ORDERED: IV NORMAL SALINE 1000ML BAG 1,000 ML IV SCH (13:45)
[2021-01-06] MEDS: IV NORMAL SALINE 1000ML BAG 1,000 ML IV SCH ×2 (13:45→21:36)
[2021-01-06] MEDS ORDERED: ONDANSETRON PF 4 MG/2 ML VIAL. IVP PRN (13:45)
[2021-01-06] MEDS ORDERED: ONDANSETRON PF 4 MG/2 ML VIAL. IV PRN (13:45)
[2021-01-06] MEDS ORDERED: PROCHLORPERAZINE 10 MG/2 ML VIAL. IVP PRN (13:45)
--- NOTE | 2021-01-06 13:50 | PDOC1 ---
History and Physical Date of Admission Date of Admission DATE: 01/06/21 TIME: 13:48 Identification/Chief Complaint Chief Complaint Nausea and vomiting with abdominal pain Source Source: Patient History of Present Illness History of Present Illness Ms Schumacher is a 45yo F w/ PMHx morbid obesity, ?lupus who is brought to ED by a friend c/o left-sided abdominal pain, nausea, vomiting. She states her pain in her LUQ and is colicky and is a 10 out of 10. Patient's pain does not radiate. She did have diarrhea overnight on 01/04, but has not had a BM since. Patient states she was able to tolerate protein drinks on 01/04/21. Had some vomiting on 01/05/2021 and has vomited a total of 10 times the past 24 hours. Overnight she developed nausea, vomiting, and left sided and epigastric abdominal pain. She has had abdominal pain since 12/15/2020. She is status post left oophorectomy salpingectomy lysis of adhesions 12/17/2020. She since been readmitted on 12/31/2020 for nausea and vomiting noted with biliary dyskinesia and gallbladder ejection fraction of 6%. Recommend low-fat diet and to follow-up for elective cholecystectomy in 4 to 6 weeks. She notes history of H. pylori infection. She did have EGD and colonoscopy in 2018 with mild duodenitis, but otherwise was benign. Labs with WBC 9.7, Hb 12, platelets 406, NA 140, K4.3, BUN 15, CR 0.6, glucose 93, albumin 2.5. LFTs otherwise within normal laboratory limits. CT abdomen pelvis with concerns for SBO in left lower quadrant with fecalization. Radiology report with possible concern for closed loop. Vomited already once in ED Given IV fentanyl with pain relief and zofran for vomiting. Adamantly opposed to NGT insertion despite encouragement. Admitted for further care with general surgery and [employer] consultation. Past Medical History Cardiovascular: HTN Pulmonary: No pertinent hx GI: No pertinent hx Heme/Onc: No pertinent hx Hepatobiliary: No pertinent hx Infectious disease: No pertinent hx Renal/: No pertinent hx Endocrine: No pertinent hx Past Surgical History Past Surgical History: , Hysterectomy, Other (Left oophorectomy, salpingectomy 12/17/2020) Family History Family History: Hypertension Social History Smoke: No ALCOHOL: none Drugs: None Current Medications Current Medications Current Medications Ondansetron HCl (Zofran) 4 mg 1X ONCE IV Last administered on 01/06/21at 13:24; Start 01/06/21 at 12:00; Stop 01/06/21 at 12:02; Status DC Sodium Chloride 1,000 ml @ 1,000 mls/hr 1X ONCE IV Last administered on 01/06/21at 13:24; Start 01/06/21 at 12:00; Stop 01/06/21 at 12:59; Status DC Fentanyl Citrate (Fentanyl 2ml Vial) 50 mcg 1X ONCE IV Last administered on 01/06/21at 13:25; Start 01/06/21 at 12:00; Stop 01/06/21 at 12:02; Status DC Iohexol (Omnipaque 300 Mg/ml) 75 ml 1X ONCE IV Last administered on 01/06/21at 12:49; Start 01/06/21 at 12:45; Stop 01/06/21 at 12:46; Status DC Info (CONTRAST GIVEN -- Rx MONITORING) 1 each PRN DAILY PRN MC SEE COMMENTS; Start 01/06/21 at 12:45; Stop 01/08/21 at 12:44 Iohexol (Omnipaque 300 Mg/ml) 100 ml STK-MED ONCE .ROUTE ; Start 01/06/21 at 12:50; Stop 01/06/21 at 12:51; Status DC Ondansetron HCl (Zofran) 4 mg PRN Q8HRS PRN IV NAUSEA/VOMITING; Start 01/06/21 at 13:45; Stop 01/07/21 at 13:44 Sodium Chloride 1,000 ml @ 125 mls/hr Q8H IV ; Start 01/06/21 at 13:45; Stop 01/07/21 at 13:44 Active Scripts Active Protonix (Pantoprazole Sodium) 40 Mg Tablet. 40 Mg PO DAILYAC 30 Days Venlafaxine Hcl 50 Mg Tablet 50 Mg PO DAILY 30 Days Hydrocodone-Apap 5-325 (Hydrocodone Bit/Acetaminophen) 1 Tab Tablet 1 Tab PO PRN Q6HRS PRN Reported Lisinopril 10 Mg Tablet 1 Tab PO DAILY Hydrochlorothiazide Tablet (Hydrochlorothiazide) 12.5 Mg Tablet 25 Mg PO DAILY Prilosec Otc (Omeprazole Magnesium) 20 Mg Tablet. 20 Mg PO DAILY Allergies Allergies: Coded Allergies: dexamethasone (Verified Allergy, Severe, sob, 12/16/20) nalbuphine (Verified Allergy, Severe, sob, 12/16/20) Corticosteroids (Glucocorticoids) (Verified Allergy, Intermediate, Rash, 12/16/20) "CORTISONES" Latex, Natural Rubber (Verified Allergy, Intermediate, 12/16/20) ROS General: YES: Fatigue, Malaise, Appetite; No: Chills, Night Sweats, Other PSYCHOLOGICAL ROS: YES: Anxiety; No: Behavioral Disorder, Concentration difficultie, Decreased libido, Depression, Disorientation, Hallucinations, Hostility, Irritablity, Memory difficulties, Mood Swings, Obsessive thoughts, Physical abuse, Sexual abuse, Sleep disturbances, Suicidal ideation, Other Eyes: No Blurry vision, No Decreased vision, No Double vision, No Dry eyes, No Excessive tearing, No Eye Pain, No Itchy Eyes, No Loss of vision, No Photophobia, No Scotomata, No Uses contacts, No Uses glasses, No Other HEENT: No: Heacaches, Visual Changes, Hearing change, Nasal congestion, Nasal discharge, Oral lesions, Sinus pain, Sore Throat, Epistaxis, Sneezing, Snoring, Tinnitus, Vertigo, Vocal changes, Other ALLERGY AND IMMUNOLOGY: No: Hives, Insect Bite Sensitivity, Itchy/Watery Eyes, Nasal Congestion, Post Nasal Drip, Seasonal Allergies, Other Hematological and Lymphatic: No: Bleeding Problems, Blood Clots, Blood Transfusions, Brusing, Night Sweats, Pallor, Swollen Lymph Nodes, Other ENDOCRINE: No: Breast Changes, Galactorrhea, Hair Pattern Changes, Hot Flashes, Malaise/lethargy, Mood Swings, Palpitations, Polydipsia/polyuria, Skin Changes, Temperature Intolerance, Unexpected Weight Changes, Other Breast: No New/Changing Breast Lumps, No Nipple changes, No Nipple discharge, No Other Respiratory: No: Cough, Hemoptysis, Orthopnea, Pleuritic Pain, Shortness of breath, SOB with excertion, Sputum Changes, Stridor, Tachypnea, Wheezing, Other Cardiovascular: No Chest Pain, No Palpitations, No Orthopnea, No Paroxysmal N oc. Dyspnea, No Edema, No Lt Headedness, No Other Gastrointestinal: Yes Nausea, Yes Vomiting, Yes Abdominal Pain; No Diarrhea, No Constipation, No Melena, No Hematochezia, No Other Genitourinary: No Dysuria, No Frequency, No Incontinence, No Hematuria, No Retention, No Discharge, No Urgency, No Pain, No Flank Pain, No Other, No , No , No , No , No , No , No Musculoskeletal: No Gait Disturbance, No Joint Pain, No Joint Stiffness, No Joint Swelling, No Muscle Pain, No Muscular Weakness, No Pain In:, No Swelling In:, No Other Neurological: No Behavorial Changes, No Bowel/Bladder ControlChng, No Confusion, No Dizziness, No Gait Disturbance, No Headaches, No Impaired Coord/balance, No Memory Loss, No Numbness/Tingling, No Seizures, No Speech Problems, No Tremors, No Visual Changes, No Weakness, No Other Skin: No Dry Skin, No Eczema, No Hair Changes, No Lumps, No Mole Changes, No Mottling, No Nail Changes, No Pruritus, No Rash, No Skin Lesion Changes, No Other, No Acne Physical Exam General: Alert, Oriented X3, Cooperative, moderate distress HEENT: Atraumatic, PERRLA, EOMI, Mucous membr. moist/pink Lungs: Clear to auscultation, Normal air movement Heart: S1S2, RRR, no thrills, no rubs, no gallops, no murmurs Abdomen: Normal bowel sounds, Soft, No hepatosplenomegaly, No masses, Other (diffuse tenderness, guarding) Rectal Exam: not examined Extremities: No clubbing, No cyanosis, No edema, Normal pulses, No tenderness/swelling Skin: No rashes, No breakdown, No significant lesion Neuro: Normal gait, Normal speech, Strength at 5/5 X4 ext, Normal tone, Sensation intact, Cranial nerves 3-12 NL, Reflexes 2+ Psych/Mental Status: Mental status NL, Mood NL Vitals Vitals Vital Signs Date Time Temp Pulse Resp B/P (MAP) Pulse Ox O2 Delivery O2 Flow Rate FiO2 01/06/21 13:25 20 01/06/21 11:36 98.3 74 94 Room Air 98.3 01/06/21 09:31 133/72 (92) Labs Labs Laboratory Tests Test 01/06/21 11:35 01/06/21 12:24 Urine Collection Type Unknown Urine Color Yellow Urine Clarity Clear Urine pH 8.5 (<5.0-8.0) Urine Specific [place] 1.020 (1.000-1.030) Urine Protein Negative mg/dL (NEG-TRACE) Urine Glucose (UA) Negative mg/dL (NEG) Urine Ketones (Stick) Negative mg/dL (NEG) Urine Blood Negative (NEG) Urine Nitrite Negative (NEG) Urine Bilirubin Negative (NEG) Urine Urobilinogen Dipstick 0.2 mg/dL (0.2 mg/dL) Urine Leukocyte Esterase Negative (NEG) Urine RBC 0 /HPF (0-2) Urine WBC Occ /HPF (0-4) Urine Squamous Epithelial Cells Occ /LPF Urine Bacteria 0 /HPF (0-FEW) White Blood Count 9.7 x10^3/uL (4.0-11.0) Red Blood Count 4.23 x10^6/uL (3.50-5.40) Hemoglobin 12.0 g/dL (12.0-15.5) Hematocrit 35.8 % (36.0-47.0) Mean Corpuscular Volume 85 fL (79-100) Mean Corpuscular Hemoglobin 29 pg (25-35) Mean Corpuscular Hemoglobin Concent 34 g/dL (31-37) Red Cell Distribution Width 13.5 % (11.5-14.5) Platelet Count 406 x10^3/uL (140-400) Neutrophils (%) (Auto) 76 % (31-73) Lymphocytes (%) (Auto) 18 % (24-48) Monocytes (%) (Auto) 6 % (0-9) Eosinophils (%) (Auto) 0 % (0-3) Basophils (%) (Auto) 0 % (0-3) Neutrophils # (Auto) 7.4 x10^3/uL (1.8-7.7) Lymphocytes # (Auto) 1.7 x10^3/uL (1.0-4.8) Monocytes # (Auto) 0.6 x10^3/uL (0.0-1.1) Eosinophils # (Auto) 0.0 x10^3/uL (0.0-0.7) Basophils # (Auto) 0.0 x10^3/uL (0.0-0.2) Sodium Level 140 mmol/L (136-145) Potassium Level 4.3 mmol/L (3.5-5.1) Chloride Level 106 mmol/L (98-107) Carbon Dioxide Level 23 mmol/L (21-32) Anion Gap 11 (6-14) Blood Urea Nitrogen 15 mg/dL (7-20) Creatinine 0.6 mg/dL (0.6-1.0) Estimated GFR (Cockcroft-Gault) 108.6 BUN/Creatinine Ratio 25 (6-20) Glucose Level 93 mg/dL (70-99) Calcium Level 9.1 mg/dL (8.5-10.1) Magnesium Level 2.0 mg/dL (1.8-2.4) Total Bilirubin 0.3 mg/dL (0.2-1.0) Aspartate Amino Transf (AST/SGOT) 24 U/L (15-37) Alanine Aminotransferase (ALT/SGPT) 49 U/L (14-59) Alkaline Phosphatase 115 U/L (46-116) Total Protein 7.7 g/dL (6.4-8.2) Albumin 3.5 g/dL (3.4-5.0) Albumin/Globulin Ratio 0.8 (1.0-1.7) Lipase 71 U/L (73-393) Laboratory Tests Test 01/06/21 11:35 01/06/21 12:24 Urine Collection Type Unknown Urine Color Yellow Urine Clarity Clear Urine pH 8.5 (<5.0-8.0) Urine Specific [place] 1.020 (1.000-1.030) Urine Protein Negative mg/dL (NEG-TRACE) Urine Glucose (UA) Negative mg/dL (NEG) Urine Ketones (Stick) Negative mg/dL (NEG) Urine Blood Negative (NEG) Urine Nitrite Negative (NEG) Urine Bilirubin Negative (NEG) Urine Urobilinogen Dipstick 0.2 mg/dL (0.2 mg/dL) Urine Leukocyte Esterase Negative (NEG) Urine RBC 0 /HPF (0-2) Urine WBC Occ /HPF (0-4) Urine Squamous Epithelial Cells Occ /LPF Urine Bacteria 0 /HPF (0-FEW) White Blood Count 9.7 x10^3/uL (4.0-11.0) Red Blood Count 4.23 x10^6/uL (3.50-5.40) Hemoglobin 12.0 g/dL (12.0-15.5) Hematocrit 35.8 % (36.0-47.0) Mean Corpuscular Volume 85 fL (79-100) Mean Corpuscular Hemoglobin 29 pg (25-35) Mean Corpuscular Hemoglobin Concent 34 g/dL (31-37) Red Cell Distribution Width 13.5 % (11.5-14.5) Platelet Count 406 x10^3/uL (140-400) Neutrophils (%) (Auto) 76 % (31-73) Lymphocytes (%) (Auto) 18 % (24-48) Monocytes (%) (Auto) 6 % (0-9) Eosinophils (%) (Auto) 0 % (0-3) Basophils (%) (Auto) 0 % (0-3) Neutrophils # (Auto) 7.4 x10^3/uL (1.8-7.7) Lymphocytes # (Auto) 1.7 x10^3/uL (1.0-4.8) Monocytes # (Auto) 0.6 x10^3/uL (0.0-1.1) Eosinophils # (Auto) 0.0 x10^3/uL (0.0-0.7) Basophils # (Auto) 0.0 x10^3/uL (0.0-0.2) Sodium Level 140 mmol/L (136-145) Potassium Level 4.3 mmol/L (3.5-5.1) Chloride Level 106 mmol/L (98-107) Carbon Dioxide Level 23 mmol/L (21-32) Anion Gap 11 (6-14) Blood Urea Nitrogen 15 mg/dL (7-20) Creatinine 0.6 mg/dL (0.6-1.0) Estimated GFR (Cockcroft-Gault) 108.6 BUN/Creatinine Ratio 25 (6-20) Glucose Level 93 mg/dL (70-99) Calcium Level 9.1 mg/dL (8.5-10.1) Magnesium Level 2.0 mg/dL (1.8-2.4) Total Bilirubin 0.3 mg/dL (0.2-1.0) Aspartate Amino Transf (AST/SGOT) 24 U/L (15-37) Alanine Aminotransferase (ALT/SGPT) 49 U/L (14-59) Alkaline Phosphatase 115 U/L (46-116) Total Protein 7.7 g/dL (6.4-8.2) Albumin 3.5 g/dL (3.4-5.0) Albumin/Globulin Ratio 0.8 (1.0-1.7) Lipase 71 U/L (73-393) Images Images CT abdomen/pelvis w/ IV contrast: Lung bases: Mild dependent changes in the lung bases. Normal heart. General abdomen: No ascites. No free air. Mesenteric edema and fat stranding in the anterior lower abdominal wall at site of recent surgical incision. No focal fluid collection to suggest abscess. Liver : Normal in size and attenuation. No masses seen. Gallbladder/Biliary Tree: Normal gallbladder. No intrahepatic or extrahepatic biliary ductal dilatation. Pancreas: Normal. Spleen: Normal in size and attenuation. Adrenal glands: Normal. Kidneys: No hydronephrosis or hydroureter. No renal masses identified. Gastrointestinal: Unremarkable decompressed stomach. Progressive dilation and fecalization of left lower quadrant small bowel loops with a couple dilated loops demonstrating equalization of the internal material and thickened wall emanating from a central tethering point best appreciated on axial image 63. The more distal small bowel is relatively decompressed. Unremarkable ascending and transverse colon. Mild wall thickening at the sigmoid colon likely secondary to adjacent inflammatory changes. Lymph nodes: No lymphadenopathy. Vessels: Unremarkable. Pelvic organs: Status post left ovarian mass excision. The bladder demonstrates tethering to the lower abdominal wall surgical incision. Soft tissues: Mild subcutaneous stranding from recent surgical incision. Bones: No acute or aggressive lesions. Impression: 1. Small bowel obstruction with dilated loops in the lower abdomen terminating from a central tethering point, likely postsurgical adhesions, cannot exclude closed loop obstruction. Surgical consultation is recommended. 2. Tethering of the anterior superior bladder to the lower anterior abdominal wall at the site of recent surgical excision. Adjacent inflammatory changes in the fat without abscess identified. VTE Prophylaxis Ordered VTE Prophylaxis Devices: No VTE Pharmacological Prophylaxi: No Assessment/Plan Assessment/Plan A/P: SBO - on CT. General surgery and [employer] consulted given her recent surgery. She is refusing NGT, very tearful. NPO, IV morphine prn pain, toradol prn pain, zofran for nausea Intractable nausea vomiting - due to SBO, IV antiemetics and pain meds Biliary dyskinesia - noted previously. Gallbladder EF 6%. Notably she has been advised to wait for further surgery 4-6 weeks for elective cholecystectomy given she has had symptoms more than 3 times during the past year. GERD - IV PPI while NPO Hepatic steatosis on imaging - advised low fat diet, less processed foods FEN - NPO, NSS PPX - SCDs FULL CODE Dispo - inpatient for above Justifications for Admission Abdominal Pain Indications Is patient in severe pain?: Yes Justification for admission: Patient has severe pain that requires (parenteral analgesic-please state analgesics and route) at least every 4 hours necessitating inpatient level of care. Is NPO status required?: Yes Justification for admission: Patient may require to be NPO for greater 24hours making it medically necessary to manage patient as inpatient. Other Justification intractable abd pain JEFFREY MORA MD Jan 06, 2021 13:50
--- NOTE | 2021-01-06 15:06 | PDOC2 ---
MIKEL GUAN MISSILEMAN 01/06/21 1506: CONSULT Date of Consult Date of Consult DATE: 01/06/21 TIME: 15:01 Reason for Consult Reason for Consult: SBO Referring Physician Referring Physician: ER Identification/Chief Complaint Chief Complaint abdominal pain Source Source: Chart review, Patient History of Present Illness Reason for Visit: Patient known from consult last week. 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 Discharged and now returns with ongoing abdominal pain and vomiting. Reports + flatus, and some small stool, maybe diarrhea like. No further vomiting currently . Past Medical History Cardiovascular: HTN Pulmonary: No pertinent hx GI: No pertinent hx Heme/Onc: No pertinent hx Hepatobiliary: No pertinent hx Infectious disease: No pertinent hx Renal/: No pertinent hx Endocrine: No pertinent hx Past Surgical History Past Surgical History: , Hysterectomy, Other Family History Family History: Hypertension Social History No ALCOHOL: none Drugs: None Lives: with Family Current Medications Current Medications Current Medications Ondansetron HCl (Zofran) 4 mg 1X ONCE IV Last administered on 01/06/21at 13:24; Start 01/06/21 at 12:00; Stop 01/06/21 at 12:02; Status DC Sodium Chloride 1,000 ml @ 1,000 mls/hr 1X ONCE IV Last administered on 01/06/21at 13:24; Start 01/06/21 at 12:00; Stop 01/06/21 at 12:59; Status DC Fentanyl Citrate (Fentanyl 2ml Vial) 50 mcg 1X ONCE IV Last administered on 01/06/21at 13:25; Start 01/06/21 at 12:00; Stop 01/06/21 at 12:02; Status DC Iohexol (Omnipaque 300 Mg/ml) 75 ml 1X ONCE IV Last administered on 01/06/21at 12:49; Start 01/06/21 at 12:45; Stop 01/06/21 at 12:46; Status DC Info (CONTRAST GIVEN -- Rx MONITORING) 1 each PRN DAILY PRN MC SEE COMMENTS; Start 01/06/21 at 12:45; Stop 01/08/21 at 12:44 Iohexol (Omnipaque 300 Mg/ml) 100 ml STK-MED ONCE .ROUTE ; Start 01/06/21 at 12:50; Stop 01/06/21 at 12:51; Status DC Ondansetron HCl (Zofran) 4 mg PRN Q8HRS PRN IV NAUSEA/VOMITING; Start 01/06/21 at 13:45; Stop 01/07/21 at 13:44 Sodium Chloride 1,000 ml @ 125 mls/hr Q8H IV ; Start 01/06/21 at 13:45; Stop 01/07/21 at 13:44 Sodium Chloride 1,000 ml @ 100 mls/hr Q10H IV ; Start 01/06/21 at 13:45; Stop 01/06/21 at 23:44 Ondansetron HCl (Zofran) 4 mg PRN Q6HRS PRN IVP NAUSEA/VOMITING; Start 01/06/21 at 13:45 Prochlorperazine Edisylate (Compazine) 10 mg PRN Q6HRS PRN IVP NAUSEA/VOMITING- 2ND CHOICE; Start 01/06/21 at 13:45 Morphine Sulfate (Morphine Sulfate) 2 mg PRN Q1HR PRN IV PAIN; Start 01/06/21 at 13:45 Ketorolac Tromethamine (Toradol 30mg Vial) 30 mg PRN Q6HRS PRN IV PAIN; Start 01/06/21 at 13:45; Stop 01/11/21 at 13:44 Bisacodyl (Dulcolax Supp) 10 mg PRN DAILY PRN NM CONSTIPATION; Start 01/06/21 at 13:45 Active Scripts Active Protonix (Pantoprazole Sodium) 40 Mg Tablet. 40 Mg PO DAILYAC 30 Days Venlafaxine Hcl 50 Mg Tablet 50 Mg PO DAILY 30 Days Hydrocodone-Apap 5-325 (Hydrocodone Bit/Acetaminophen) 1 Tab Tablet 1 Tab PO PRN Q6HRS PRN Reported Lisinopril 10 Mg Tablet 1 Tab PO DAILY Hydrochlorothiazide Tablet (Hydrochlorothiazide) 12.5 Mg Tablet 25 Mg PO DAILY Prilosec Otc (Omeprazole Magnesium) 20 Mg Tablet. 20 Mg PO DAILY Allergies Allergies: Coded Allergies: dexamethasone (Verified Allergy, Severe, sob, 12/16/20) nalbuphine (Verified Allergy, Severe, sob, 12/16/20) Corticosteroids (Glucocorticoids) (Verified Allergy, Intermediate, Rash, 12/16/20) "CORTISONES" Latex, Natural Rubber (Verified Allergy, Intermediate, 12/16/20) ROS General: YES: Fatigue; No: Chills PSYCHOLOGICAL ROS: No: Anxiety, Depression Eyes: No Blurry vision, No Double vision HEENT: No: Heacaches, Sore Throat Hematological and Lymphatic: No: Bleeding Problems, Blood Clots Respiratory: No: Cough, SOB with excertion Cardiovascular: No Chest Pain, No Palpitations Gastrointestinal: Yes Other (see hpi) Genitourinary: No Dysuria, No Hematuria Musculoskeletal: No Joint Pain Neurological: No Impaired Coord/balance, No Numbness/Tingling Skin: No Pruritus, No Rash Physical Exam General: Alert, Oriented X3, Cooperative HEENT: Atraumatic, PERRLA Lungs: Clear to auscultation, Normal air movement Heart: Regular rate, Normal S1, Normal S2 Abdomen: Soft, Other (generalized abdominal pain on exam) Extremities: No clubbing, No cyanosis Skin: No rashes, No breakdown Neuro: Normal gait, Normal speech Psych/Mental Status: Mental status NL, Mood NL MUSCULOSKELETAL: No deformity, No swelling Vitals VITALS Vital Signs Date Time Temp Pulse Resp B/P (MAP) Pulse Ox O2 Delivery O2 Flow Rate FiO2 01/06/21 14:28 66 18 163/77 (105) 98 Room Air 01/06/21 11:36 98.3 98.3 Labs Labs Laboratory Tests Test 01/06/21 11:35 01/06/21 12:24 Urine Collection Type Unknown Urine Color Yellow Urine Clarity Clear Urine pH 8.5 (<5.0-8.0) Urine Specific [place] 1.020 (1.000-1.030) Urine Protein Negative mg/dL (NEG-TRACE) Urine Glucose (UA) Negative mg/dL (NEG) Urine Ketones (Stick) Negative mg/dL (NEG) Urine Blood Negative (NEG) Urine Nitrite Negative (NEG) Urine Bilirubin Negative (NEG) Urine Urobilinogen Dipstick 0.2 mg/dL (0.2 mg/dL) Urine Leukocyte Esterase Negative (NEG) Urine RBC 0 /HPF (0-2) Urine WBC Occ /HPF (0-4) Urine Squamous Epithelial Cells Occ /LPF Urine Bacteria 0 /HPF (0-FEW) White Blood Count 9.7 x10^3/uL (4.0-11.0) Red Blood Count 4.23 x10^6/uL (3.50-5.40) Hemoglobin 12.0 g/dL (12.0-15.5) Hematocrit 35.8 % (36.0-47.0) Mean Corpuscular Volume 85 fL (79-100) Mean Corpuscular Hemoglobin 29 pg (25-35) Mean Corpuscular Hemoglobin Concent 34 g/dL (31-37) Red Cell Distribution Width 13.5 % (11.5-14.5) Platelet Count 406 x10^3/uL (140-400) Neutrophils (%) (Auto) 76 % (31-73) Lymphocytes (%) (Auto) 18 % (24-48) Monocytes (%) (Auto) 6 % (0-9) Eosinophils (%) (Auto) 0 % (0-3) Basophils (%) (Auto) 0 % (0-3) Neutrophils # (Auto) 7.4 x10^3/uL (1.8-7.7) Lymphocytes # (Auto) 1.7 x10^3/uL (1.0-4.8) Monocytes # (Auto) 0.6 x10^3/uL (0.0-1.1) Eosinophils # (Auto) 0.0 x10^3/uL (0.0-0.7) Basophils # (Auto) 0.0 x10^3/uL (0.0-0.2) Sodium Level 140 mmol/L (136-145) Potassium Level 4.3 mmol/L (3.5-5.1) Chloride Level 106 mmol/L (98-107) Carbon Dioxide Level 23 mmol/L (21-32) Anion Gap 11 (6-14) Blood Urea Nitrogen 15 mg/dL (7-20) Creatinine 0.6 mg/dL (0.6-1.0) Estimated GFR (Cockcroft-Gault) 108.6 BUN/Creatinine Ratio 25 (6-20) Glucose Level 93 mg/dL (70-99) Calcium Level 9.1 mg/dL (8.5-10.1) Magnesium Level 2.0 mg/dL (1.8-2.4) Total Bilirubin 0.3 mg/dL (0.2-1.0) Aspartate Amino Transf (AST/SGOT) 24 U/L (15-37) Alanine Aminotransferase (ALT/SGPT) 49 U/L (14-59) Alkaline Phosphatase 115 U/L (46-116) Total Protein 7.7 g/dL (6.4-8.2) Albumin 3.5 g/dL (3.4-5.0) Albumin/Globulin Ratio 0.8 (1.0-1.7) Lipase 71 U/L (73-393) Laboratory Tests Test 01/06/21 11:35 01/06/21 12:24 Urine Collection Type Unknown Urine Color Yellow Urine Clarity Clear Urine pH 8.5 (<5.0-8.0) Urine Specific [place] 1.020 (1.000-1.030) Urine Protein Negative mg/dL (NEG-TRACE) Urine Glucose (UA) Negative mg/dL (NEG) Urine Ketones (Stick) Negative mg/dL (NEG) Urine Blood Negative (NEG) Urine Nitrite Negative (NEG) Urine Bilirubin Negative (NEG) Urine Urobilinogen Dipstick 0.2 mg/dL (0.2 mg/dL) Urine Leukocyte Esterase Negative (NEG) Urine RBC 0 /HPF (0-2) Urine WBC Occ /HPF (0-4) Urine Squamous Epithelial Cells Occ /LPF Urine Bacteria 0 /HPF (0-FEW) White Blood Count 9.7 x10^3/uL (4.0-11.0) Red Blood Count 4.23 x10^6/uL (3.50-5.40) Hemoglobin 12.0 g/dL (12.0-15.5) Hematocrit 35.8 % (36.0-47.0) Mean Corpuscular Volume 85 fL (79-100) Mean Corpuscular Hemoglobin 29 pg (25-35) Mean Corpuscular Hemoglobin Concent 34 g/dL (31-37) Red Cell Distribution Width 13.5 % (11.5-14.5) Platelet Count 406 x10^3/uL (140-400) Neutrophils (%) (Auto) 76 % (31-73) Lymphocytes (%) (Auto) 18 % (24-48) Monocytes (%) (Auto) 6 % (0-9) Eosinophils (%) (Auto) 0 % (0-3) Basophils (%) (Auto) 0 % (0-3) Neutrophils # (Auto) 7.4 x10^3/uL (1.8-7.7) Lymphocytes # (Auto) 1.7 x10^3/uL (1.0-4.8) Monocytes # (Auto) 0.6 x10^3/uL (0.0-1.1) Eosinophils # (Auto) 0.0 x10^3/uL (0.0-0.7) Basophils # (Auto) 0.0 x10^3/uL (0.0-0.2) Sodium Level 140 mmol/L (136-145) Potassium Level 4.3 mmol/L (3.5-5.1) Chloride Level 106 mmol/L (98-107) Carbon Dioxide Level 23 mmol/L (21-32) Anion Gap 11 (6-14) Blood Urea Nitrogen 15 mg/dL (7-20) Creatinine 0.6 mg/dL (0.6-1.0) Estimated GFR (Cockcroft-Gault) 108.6 BUN/Creatinine Ratio 25 (6-20) Glucose Level 93 mg/dL (70-99) Calcium Level 9.1 mg/dL (8.5-10.1) Magnesium Level 2.0 mg/dL (1.8-2.4) Total Bilirubin 0.3 mg/dL (0.2-1.0) Aspartate Amino Transf (AST/SGOT) 24 U/L (15-37) Alanine Aminotransferase (ALT/SGPT) 49 U/L (14-59) Alkaline Phosphatase 115 U/L (46-116) Total Protein 7.7 g/dL (6.4-8.2) Albumin 3.5 g/dL (3.4-5.0) Albumin/Globulin Ratio 0.8 (1.0-1.7) Lipase 71 U/L (73-393) Assessment/Plan Assessment/Plan SBO vs ileus bowel rest check SBFT in AM CORA JAMA MD 01/06/21 2226: CONSULT Assessment/Plan Assessment/Plan Pt seen and examined. Agree with Ms. Guan's note Pt feels better and is having some bowel fxn will check SBFT in AM. Thanks for consult MIKEL GUAN APRN Jan 06, 2021 15:06 CORA JAMA MD Jan 06, 2021 22:26
[2021-01-06] MEDS ORDERED: ACETAMINOPHEN 650 MG SUPP.RECT. PR PRN (15:30)
[2021-01-06] MEDS: KETOROLAC 30 MG/ML VIAL. IV PRN ×2 (15:33→23:12)
[2021-01-06] MEDS: AMINO AC 3%/ELECTROLYTE/GLYCER 1,000 ML IV SCH (15:34)
[2021-01-06 19:00] VITALS: BP 102/50
[2021-01-06 23:00] VITALS: BP 123/54
[2021-01-07 03:00] VITALS: BP 119/48
[2021-01-07] MEDS: AMINO AC 3%/ELECTROLYTE/GLYCER 1,000 ML IV SCH ×2 (04:26→23:06)
[2021-01-07] MEDS: IV NORMAL SALINE 1000ML BAG 1,000 ML IV SCH (05:45)
[2021-01-07 07:45] LABS: BASO % 0 % (0-3); EOS # 0.1 x10^3/uL (0.0-0.7); EOS % 1 % (0-3); HEMATOCRIT 30.4 % (36.0-47.0); HEMOGLOBIN 10.1 g/dL (12.0-15.5); LYMPH # 1.6 x10^3/uL (1.0-4.8); LYMPH % 29 % (24-48); MEAN CORPUSCULAR HEMOGLOBIN 28 pg (25-35); MEAN CORPUSCULAR HGB CONC 33 g/dL (31-37); MEAN CORPUSCULAR VOLUME 85 fL (79-100); MONO # 0.4 x10^3/uL (0.0-1.1); MONO % 7 % (0-9); NEUT # 3.5 x10^3/uL (1.8-7.7); NEUT % 62 % (31-73); PLATELET COUNT 367 x10^3/uL (140-400); RED BLOOD COUNT 3.57 x10^6/uL (3.50-5.40); RED CELL DISTRIBUTION WIDTH 13.6 % (11.5-14.5); WHITE BLOOD COUNT 5.6 x10^3/uL (4.0-11.0)
[2021-01-07] MEDS ORDERED: IOHEXOL 300 MG/ML 100ML VIAL. PO ONE (08:15)
[2021-01-07] MEDS ORDERED: CONTRAST GIVEN. MC PRN (08:15)
--- NOTE | 2021-01-07 09:01 | PDOC ---
PROGRESS NOTES Date of Service: DATE: 01/07/21 TIME: 09:01 Chief Complaint Chief Complaint Images Images CT abdomen/pelvis w/ IV contrast: Lung bases: Mild dependent changes in the lung bases. Normal heart. General abdomen: No ascites. No free air. Mesenteric edema and fat stranding in the anterior lower abdominal wall at site of recent surgical incision. No focal fluid collection to suggest abscess. Liver : Normal in size and attenuation. No masses seen. Gallbladder/Biliary Tree: Normal gallbladder. No intrahepatic or extrahepatic b iliary ductal dilatation. Pancreas: Normal. Spleen: Normal in size and attenuation. Adrenal glands: Normal. Kidneys: No hydronephrosis or hydroureter. No renal masses identified. Gastrointestinal: Unremarkable decompressed stomach. Progressive dilation and fecalization of left lower quadrant small bowel loops with a couple dilated loops demonstrating equalization of the internal material and thickened wall emanating from a central tethering point best appreciated on axial image 63. The more distal small bowel is relatively decompressed. Unremarkable ascending and transverse colon. Mild wall thickening at the sigmoid colon likely secondary to adjacent inflammatory changes. Lymph nodes: No lymphadenopathy. Vessels: Unremarkable. Pelvic organs: Status post left ovarian mass excision. The bladder demonstrates tethering to the lower abdominal wall surgical incision. Soft tissues: Mild subcutaneous stranding from recent surgical incision. Bones: No acute or aggressive lesions. Impression: 1. Small bowel obstruction with dilated loops in the lower abdomen terminating from a central tethering point, likely postsurgical adhesions, cannot exclude closed loop obstruction. Surgical consultation is recommended. 2. Tethering of the anterior superior bladder to the lower anterior abdominal wall at the site of recent surgical excision. Adjacent inflammatory changes in the fat without abscess identified. VTE Prophylaxis Ordered VTE Prophylaxis Devices: No VTE Pharmacological Prophylaxi: No PREOPERATIVE DIAGNOSES: Pelvic pain, left side adnexal mass. POSTOPERATIVE DIAGNOSES: Pelvic pain, left side adnexal mass. OPERATION PERFORMED: Laparotomy, lysis of adhesions, left side oophorectomy. WAGE HAND: Fer Collado MD Assessment/Plan Assessment/Plan A/P: SBO - on CT. General surgery and Medical Imaging Technologist consulted given her recent surgery. She is refusing NGT, very tearful. NPO, IV morphine prn pain, toradol prn pain, zofran for nausea recently Discharged and now returns with ongoing abdominal pain and vomiting Intractable nausea vomiting - due to SBO, IV antiemetics and pain meds Biliary dyskinesia - noted previously. Gallbladder EF 6%. Notably she has been advised to wait for further surgery 4-6 weeks for elective cholecystectomy given she has had symptoms more than 3 times during the past year. GERD - IV PPI while NPO Hepatic steatosis on imaging - advised low fat diet, less processed foods Tethering of the anterior superior bladder to the lower anterior abdominal wall at the site of recent surgical excision. Patient states she has had abdominal pain on and off since December 15. Patient's pain is associated with nausea vomiting and initially episodes of diarrhea plan ADMIT FEN - NPO, NSS PPX - SCDs FULL CODE Dispo - inpatient for above SURGERY CONSULT GI CONSULT CRP CONSULT DR BADILLO 38 MIN PT exam, chart review, > 50% of time spent with exam, chart review, pt care coordination Justifications for Admission Justifications for Admission Abdominal Pain Indications Is patient in severe pain?: Yes Justification for admission: Patient has severe pain that requires (parenteral analgesic-please state analgesics and route) at least every 4 hours necessitating inpatient level of care. Is NPO status required?: Yes Justification for admission: Patient may require to be NPO for greater 24hours making it medically necessary to manage patient as inpatient. Other Justification intractable abd pain History of Present Illness History of Present Illness Identification/Chief Complaint Chief Complaint Nausea and vomiting with abdominal pain Source Source: Patient History of Present Illness History of Present Illness Ms Schumacher is a 45yo F w/ PMHx morbid obesity, ?lupus who is brought to ED by a friend c/o left-sided abdominal pain, nausea, vomiting. She states her pain in her LUQ and is colicky and is a 10 out of 10. Patient's pain does not radiate. She did have diarrhea overnight on 01/04, but has not had a BM since. Patient sta matias she was able to tolerate protein drinks on 01/04/21. Had some vomiting on 01/05/2021 and has vomited a total of 10 times the past 24 hours. Overnight she developed nausea, vomiting, and left sided and epigastric abdominal pain. She has had abdominal pain since 12/15/2020. She is status post left oophorectomy salpingectomy lysis of adhesions 12/17/2020. She since been readmitted on 12/31/2020 for nausea and vomiting noted with biliary dyskinesia and gallbladder ejection fraction of 6%. Recommend low-fat diet and to follow-up for elective cholecystectomy in 4 to 6 weeks. She notes history of H. pylori infection. She did have EGD and colonoscopy in 2018 with mild duodenitis, but otherwise was benign. Labs with WBC 9.7, Hb 12, platelets 406, NA 140, K4.3, BUN 15, CR 0.6, glucose 93, albumin 2.5. LFTs otherwise within normal laboratory limits. CT abdomen pelvis with concerns for SBO in left lower quadrant with fecalization. Radiology report with possible concern for closed loop. Vomited already once in ED Given IV fentanyl with pain relief and zofran for vomiting. Adamantly opposed to NGT insertion despite encouragement. Admitted for further care with general surgery and Medical Imaging Technologist consultation. Past Medical History Cardiovascular: HTN Pulmonary: No pertinent hx GI: No pertinent hx Heme/Onc: No pertinent hx Hepatobiliary: No pertinent hx Infectious disease: No pertinent hx Renal/: No pertinent hx Endocrine: No pertinent hx Past Surgical History Past Surgical History: , Hysterectomy, Other (Left oophorectomy, salpingectomy 12/17/2020) Family History Family History: Hypertension Social History Smoke: No ALCOHOL: none Drugs: None Current Medications Current Medications Current Medications Ondansetron HCl (Zofran) 4 mg 1X ONCE IV Last administered on 01/06/21at 13:24; Start 01/06/21 at 12:00; Stop 01/06/21 at 12:02; Status DC Sodium Chloride 1,000 ml @ 1,000 mls/hr 1X ONCE IV Last administered on 01/06/21at 13:24; Start 01/06/21 at 12:00; Stop 01/06/21 at 12:59; Status DC Fentanyl Citrate (Fentanyl 2ml Vial) 50 mcg 1X ONCE IV Last administered on 01/06/21at 13:25; Start 01/06/21 at 12:00; Stop 01/06/21 at 12:02; Status DC Iohexol (Omnipaque 300 Mg/ml) 75 ml 1X ONCE IV Last administered on 01/06/21at 12:49; Start 01/06/21 at 12:45; Stop 01/06/21 at 12:46; Status DC Info (CONTRAST GIVEN -- Rx MONITORING) 1 each PRN DAILY PRN MC SEE COMMENTS; Start 01/06/21 at 12:45; Stop 01/08/21 at 12:44 Iohexol (Omnipaque 300 Mg/ml) 100 ml STK-MED ONCE .ROUTE ; Start 01/06/21 at 12:50; Stop 01/06/21 at 12:51; Status DC Ondansetron HCl (Zofran) 4 mg PRN Q8HRS PRN IV NAUSEA/VOMITING; Start 01/06/21 at 13:45; Stop 01/07/21 at 13:44 Sodium Chloride 1,000 ml @ 125 mls/hr Q8H IV ; Start 01/06/21 at 13:45; Stop 01/07/21 at 13:44 Active Scripts Active Protonix (Pantoprazole Sodium) 40 Mg Tablet.dr 40 Mg PO DAILYAC 30 Days Venlafaxine Hcl 50 Mg Tablet 50 Mg PO DAILY 30 Days Hydrocodone-Apap 5-325 (Hydrocodone Bit/Acetaminophen) 1 Tab Tablet 1 Tab PO PRN Q6HRS PRN Reported Lisinopril 10 Mg Tablet 1 Tab PO DAILY Hydrochlorothiazide Tablet (Hydrochlorothiazide) 12.5 Mg Tablet 25 Mg PO DAILY Prilosec Otc (Omeprazole Magnesium) 20 Mg Tablet.dr 20 Mg PO DAILY Allergies Allergies: Coded Allergies: dexamethasone (Verified Allergy, Severe, sob, 12/16/20) nalbuphine (Verified Allergy, Severe, sob, 12/16/20) Corticosteroids (Glucocorticoids) (Verified Allergy, Intermediate, Rash, 12/16/20) "CORTISONES" Latex, Natural Rubber (Verified Allergy, Intermediate, 12/16/20) ROS General: YES: Fatigue, Malaise, Appetite; No: Chills, Night Sweats, Other PSYCHOLOGICAL ROS: YES: Anxiety; No: Behavioral Disorder, Concentration difficultie, Decreased libido, Depression, Disorientation, Hallucinations, Hostility, Irritablity, Memory difficulties, Mood Swings, Obsessive thoughts, Physical abuse, Sexual abuse, Sleep disturbances, Suicidal ideation, Other Eyes: No Blurry vision, No Decreased vision, No Double vision, No Dry eyes, No Excessive tearing, No Eye Pain, No Itchy Eyes, No Loss of vision, No Photophobia, No Scotomata, No Uses contacts, No Uses glasses, No Other HEENT: No: Heacaches, Visual Changes, Hearing change, Nasal congestion, Nasal discharge, Oral lesions, Sinus pain, Sore Throat, Epistaxis, Sneezing, Snoring, Tinnitus, Vertigo, Vocal changes, Other ALLERGY AND IMMUNOLOGY: No: Hives, Insect Bite Sensitivity, Itchy/Watery Eyes, Nasal Congestion, Post Nasal Drip, Seasonal Allergies, Other Hematological and Lymphatic: No: Bleeding Problems, Blood Clots, Blood Tr ansfusions, Brusing, Night Sweats, Pallor, Swollen Lymph Nodes, Other ENDOCRINE: No: Breast Changes, Galactorrhea, Hair Pattern Changes, Hot Flashes, Malaise/lethargy, Mood Swings, Palpitations, Polydipsia/polyuria, Skin Changes, Temperature Intolerance, Unexpected Weight Changes, Other Breast: No New/Changing Breast Lumps, No Nipple changes, No Nipple discharge, No Other Respiratory: No: Cough, Hemoptysis, Orthopnea, Pleuritic Pain, Shortness of breath, SOB with excertion, Sputum Changes, Stridor, Tachypnea, Wheezing, Other Cardiovascular: No Chest Pain, No Palpitations, No Orthopnea, No Paroxysmal Noc. Dyspnea, No Edema, No Lt Headedness, No Other Gastrointestinal: Yes Nausea, Yes Vomiting, Yes Abdominal Pain; No Diarrhea, No Constipation, No Melena, No Hematochezia, No Other Genitourinary: No Dysuria, No Frequency, No Incontinence, No Hematuria, No Retention, No Discharge, No Urgency, No Pain, No Flank Pain, No Other, No , No , No , No , No , No , No Musculoskeletal: No Gait Disturbance, No Joint Pain, No Joint Stiffness, No Joint Swelling, No Muscle Pain, No Muscular Weakness, No Pain In:, No Swelling In:, No Other Neurological: No Behavorial Changes, No Bowel/Bladder ControlChng, No Confusion, No Dizziness, No Gait Disturbance, No Headaches, No Impaired Coord/balance, No Memory Loss, No Numbness/Tingling, No Seizures, No Speech Problems, No Tremors, No Visual Changes, No Weakness, No Other Skin: No Dry Skin, No Eczema, No Hair Changes, No Lumps, No Mole Changes, No Mottling, No Nail Changes, No Pruritus, No Rash, No Skin Lesion Changes, No Other, No Acne 4-28 feeling better, still npo, GI and DR BADILLO consulted D/W RN Vitals Vitals Vital Signs Date Time Temp Pulse Resp B/P (MAP) Pulse Ox O2 Delivery O2 Flow Rate FiO2 01/07/21 08:00 Room Air 01/07/21 03:00 97.6 65 20 119/48 (71) 96 97.6 Physical Exam General: Alert, Oriented X3, Cooperative, No acute distress, mild distress Heart: Regular rate, Normal S1, Normal S2 Lungs: Clear Abdomen: Normal bowel sounds, Soft, No hepatosplenomegaly, No masses, Other (diffuse tenderness, guarding) Extremities: No clubbing, No cyanosis, No edema, Normal pulses, No tenderness/swelling Skin: No rashes, No breakdown, No significant lesion Labs LABS PATIENT: GABION SCHUMACHER ACCOUNT: [id number] : 1975 LOC: [address] [place] [address] AGE: 45 SEX: F STATUS: ADM IN LOCATION: [address] [place] [address] DATE OF SURGERY: PREOPERATIVE DIAGNOSES: Pelvic pain, left side adnexal mass. POSTOPERATIVE DIAGNOSES: Pelvic pain, left side adnexal mass. OPERATION PERFORMED: Laparotomy, lysis of adhesions, left side oophorectomy. WAGE HAND: Fer Collado MD DESCRIPTION OF PROCEDURE: The patient was taken to the operating room. Under general anesthesia, she was placed in a dorsal supine position. Rosenberg catheter introduced in the bladder for continuous bladder drainage. Lower abdomen was prepped and draped in the usual manner. Pfannenstiel incision was made over the area of the previous scar. Abdomen opened in layers and multiple adhesions of the omentum to the abdominal wall was released and also other adhesions in the pelvis was released and there was thick omentum covering on the right side as well as on the left side. This was all released from the abdominal wall area and visualization into the pelvis revealed multiple adhesions and a right side colon looked normal as absent uterus and absent right tube and ovary. Left side, there were multiple adhesions and could not really feel or visualized the cyst, so Dr. Collado was called in for consultation as well as to assist for surgery and did come in and after deep dissection into the left adnexal area, multiple adhesions were released. There was a small cystic structure, which was isolated and coming from the remnant of the ovary and this cyst was isolated. All the adhesions were released and as much of the cystic cavity along with the ovary is removed and subjected for pathological examination. The infundibulopelvic ligament on the left side is doubly ligated with 0 chromic catgut sutures and after this, there was no active bleeding seen. The cul-de-sac was clear, did send some peritoneal fluid for any malignant cells. After this, abdomen was closed in layers using continuous 0 chromic catgut sutures for the peritoneum, the muscle, the fascia. A 3-0 plain continuous sutures applied for subcutaneous tissue, 3-0 Vicryl subcutaneous sutures were placed. Pressure dressing was given. The skin closure was done with 3-0 Vicryl sutures and a pressure dressing was given. The patient was sent to the recovery room in good condition. No complications encountered at the time of the procedure. Estimated blood loss about 100 mL. Postoperative condition is stable. Instrument, needle counts were correct at the end of the procedure. JESS KILLIAN MD DR: EDMAR/thor JOB#: [id number] / [id number] Exam: Ultrasound abdomen limited Indication: Epigastric right upper quadrant abdominal pain Technique: Real-time grayscale and color Doppler images of the right upper quadrant were obtained by the department fuse cup expander. Comparisons: None FINDINGS: Liver contour is normal. Increased echogenicity of the liver. Hepatopedal flow in the portal vein. Gallbladder is distended and appears thin-walled. No pericholecystic fluid or wall thickening. Common bile duct measures 7 mm in diameter, mildly dilated. Right kidney measures 11.5 cm in length. No hydronephrosis. Visualized portions aorta and IVC are unremarkable. IMPRESSION: 1. Diffuse hepatic steatosis. 2. No sonographic evidence for acute cholecystitis. 3. No right-sided hydronephrosis. Electronically signed by: Kana Bradley MD (12/30/2020 10:30 PM) [facility] DICTATED and SIGNED BY: KANA BRADLEY MD DATE: 12/30/20 [id number] 0Signed PATIENT: GABINO SCHUMACHER ACCOUNT: [id number] : 1975 LOCATION: [address] [place] [address] AGE: 45 SEX: F EXAM STATUS: ADM IN ORD. PHYSICIAN: TAMMIE REYES MD REASON: SEPTATED LT ADNEXAL MASS SEEN ON CT DONE TODAY PROCEDURE: PELVIS COMPLETE Ultrasound pelvis complete transabdominal HISTORY: Left adnexal mass Sonographic sedation the pelvis and perform by transabdominal technique. Multiple static images were obtained. The uterus and ovaries are not seen. There is no free fluid. There is a septated cystic mass in the left adnexa that measures 11.2 x 9.2 x 7.7 cm. There is some peripheral detectable blood flow. IMPRESSION: Cystic adnexal mass. This could be benign or malignant. Recommend correlation with CA-125 and gynecologic consultation. Electronically signed by: Royal Nieves III, MD (12/15/2020 3:13 PM) [facility] DICTATED and SIGNED BY: ROYAL NIEVES III, MD DATE: 12/15/20 [id number] PATIENT: GABINO SCHUMACHER ACCOUNT: [id number] : 1975 LOCATION: [address] [place] [address] AGE: 45 SEX: F EXAM STATUS: ADM IN ORD. PHYSICIAN: VICENTE GARDNER REASON: epigastric pain, n/v PROCEDURE: NM HEPATOBILIARY SCAN W PHARM EXAM: HEPATOBILIARY SCINTIGRAPHY WITH GALLBLADDER EJECTION FRACTION CALCULATION. HISTORY: Epigastric pain, nausea and vomiting. TECHNIQUE: 5.5 mCi technetium-99m Choletec were administered intravenously and scintigraphic images of the abdomen obtained. After filling of the gallbladder, 1.97 mcg of sincalide were infused and the gallbladder ejection fraction calculated. FINDINGS: There is prompt hepatic clearance of tracer from the blood pool. There is homogeneous distribution throughout the liver. There is normal filling of the gallbladder and clearance into the biliary tree and small bowel. The gallbladder ejection fraction is 6% (normal >35%). IMPRESSION: 1. Decreased gallbladder ejection fraction suggesting biliary dyskinesia. Electronically signed by: Hoa Soto MD (12/31/2020 3:24 PM) [id number] DICTATED and SIGNED BY: TORREY SOTO MD CT ABDOMEN+PELVIS W History: Left flank pain, epigastric pain, nausea and vomiting diarrhea. Comparison: CT abdomen and pelvis 12/24/2020, 12/15/2020. Technique: CT of the abdomen and pelvis with intravenous contrast. Findings: Lung bases: Mild dependent changes in the lung bases. Normal heart. General abdomen: No ascites. No free air. Mesenteric edema and fat stranding in the anterior lower abdominal wall at site of recent surgical incision. No focal fluid collection to suggest abscess. Liver : Normal in size and attenuation. No masses seen. Gallbladder/Biliary Tree: Normal gallbladder. No intrahepatic or extrahepatic biliary ductal dilatation. Pancreas: Normal. Spleen: Normal in size and attenuation. Adrenal glands: Normal. Kidneys: No hydronephrosis or hydroureter. No renal masses identified. Gastrointestinal: Unremarkable decompressed stomach. Progressive dilation and fecalization of left lower quadrant small bowel loops with a couple dilated loops demonstrating equalization of the internal material and thickened wall emanating from a central tethering point best appreciated on axial image 63. The more distal small bowel is relatively decompressed. Unremarkable ascending and transverse colon. Mild wall thickening at the sigmoid colon likely secondary to adjacent inflammatory changes. Lymph nodes: No lymphadenopathy. Vessels: Unremarkable. Pelvic organs: Status post left ovarian mass excision. The bladder demonstrates tethering to the lower abdominal wall surgical incision. Soft tissues: Mild subcutaneous stranding from recent surgical incision. Bones: No acute or aggressive lesions. Impression: 1. Small bowel obstruction with dilated loops in the lower abdomen terminating from a central tethering point, likely postsurgical adhesions, cannot exclude closed loop obstruction. Surgical consultation is recommended. 2. Tethering of the anterior superior bladder to the lower anterior abdominal wall at the site of recent surgical excision. Adjacent inflammatory changes in the fat without abscess identified. ------ Exposure: One or more of the following individualized dose reduction techniques were utilized for this examination: 1. Automated exposure control 2. Adjustment of the mA and/or kV according to patient size 3. Use of iterative reconstruction technique. Electronically signed by: Ferdinand Jones MD (01/06/2021 1:18 PM) [facility] DICTATED and SIGNED BY: FERDINAND JONES MD DATE: 01/06/21 [id number] Laboratory Tests Test 01/06/21 11:35 01/06/21 12:24 01/07/21 07:05 Urine Collection Type Unknown Urine Color Yellow Urine Clarity Clear Urine pH 8.5 (<5.0-8.0) Urine Specific Morrow 1.020 (1.000-1.030) Urine Protein Negative mg/dL (NEG-TRACE) Urine Glucose (UA) Negative mg/dL (NEG) Urine Ketones (Stick) Negative mg/dL (NEG) Urine Blood Negative (NEG) Urine Nitrite Negative (NEG) Urine Bilirubin Negative (NEG) Urine Urobilinogen Dipstick 0.2 mg/dL (0.2 mg/dL) Urine Leukocyte Esterase Negative (NEG) Urine RBC 0 /HPF (0-2) Urine WBC Occ /HPF (0-4) Urine Squamous Epithelial Cells Occ /LPF Urine Bacteria 0 /HPF (0-FEW) White Blood Count 9.7 x10^3/uL (4.0-11.0) 5.6 x10^3/uL (4.0-11.0) Red Blood Count 4.23 x10^6/uL (3.50-5.40) 3.57 x10^6/uL (3.50-5.40) Hemoglobin 12.0 g/dL (12.0-15.5) 10.1 g/dL (12.0-15.5) Hematocrit 35.8 % (36.0-47.0) 30.4 % (36.0-47.0) Mean Corpuscular Volume 85 fL (79-100) 85 fL (79-100) Mean Corpuscular Hemoglobin 29 pg (25-35) 28 pg (25-35) Mean Corpuscular Hemoglobin Concent 34 g/dL (31-37) 33 g/dL (31-37) Red Cell Distribution Width 13.5 % (11.5-14.5) 13.6 % (11.5-14.5) Platelet Count 406 x10^3/uL (140-400) 367 x10^3/uL (140-400) Neutrophils (%) (Auto) 76 % (31-73) 62 % (31-73) Lymphocytes (%) (Auto) 18 % (24-48) 29 % (24-48) Monocytes (%) (Auto) 6 % (0-9) 7 % (0-9) Eosinophils (%) (Auto) 0 % (0-3) 1 % (0-3) Basophils (%) (Auto) 0 % (0-3) 0 % (0-3) Neutrophils # (Auto) 7.4 x10^3/uL (1.8-7.7) 3.5 x10^3/uL (1.8-7.7) Lymphocytes # (Auto) 1.7 x10^3/uL (1.0-4.8) 1.6 x10^3/uL (1.0-4.8) Monocytes # (Auto) 0.6 x10^3/uL (0.0-1.1) 0.4 x10^3/uL (0.0-1.1) Eosinophils # (Auto) 0.0 x10^3/uL (0.0-0.7) 0.1 x10^3/uL (0.0-0.7) Basophils # (Auto) 0.0 x10^3/uL (0.0-0.2) 0.0 x10^3/uL (0.0-0.2) Sodium Level 140 mmol/L (136-145) Potassium Level 4.3 mmol/L (3.5-5.1) Chloride Level 106 mmol/L (98-107) Carbon Dioxide Level 23 mmol/L (21-32) Anion Gap 11 (6-14) Blood Urea Nitrogen 15 mg/dL (7-20) Creatinine 0.6 mg/dL (0.6-1.0) Estimated GFR (Cockcroft-Gault) 108.6 BUN/Creatinine Ratio 25 (6-20) Glucose Level 93 mg/dL (70-99) Calcium Level 9.1 mg/dL (8.5-10.1) Magnesium Level 2.0 mg/dL (1.8-2.4) Total Bilirubin 0.3 mg/dL (0.2-1.0) Aspartate Amino Transf (AST/SGOT) 24 U/L (15-37) Alanine Aminotransferase (ALT/SGPT) 49 U/L (14-59) Alkaline Phosphatase 115 U/L (46-116) Total Protein 7.7 g/dL (6.4-8.2) Albumin 3.5 g/dL (3.4-5.0) Albumin/Globulin Ratio 0.8 (1.0-1.7) Lipase 71 U/L (73-393) Assessment and Plan Assessmemt and Plan Problems Medical Problems: (1) Left sided abdominal pain Status: Acute Comment Review of Relevant I have reviewed the following items klarissa (where applicable) has been applied. Labs Laboratory Tests Test 4/27/21 11:35 01/06/21 12:24 01/07/21 07:05 Urine Collection Type Unknown Urine Color Yellow Urine Clarity Clear Urine pH 8.5 (<5.0-8.0) Urine Specific Morrow 1.020 (1.000-1.030) Urine Protein Negative mg/dL (NEG-TRACE) Urine Glucose (UA) Negative mg/dL (NEG) Urine Ketones (Stick) Negative mg/dL (NEG) Urine Blood Negative (NEG) Urine Nitrite Negative (NEG) Urine Bilirubin Negative (NEG) Urine Urobilinogen Dipstick 0.2 mg/dL (0.2 mg/dL) Urine Leukocyte Esterase Negative (NEG) Urine RBC 0 /HPF (0-2) Urine WBC Occ /HPF (0-4) Urine Squamous Epithelial Cells Occ /LPF Urine Bacteria 0 /HPF (0-FEW) White Blood Count 9.7 x10^3/uL (4.0-11.0) 5.6 x10^3/uL (4.0-11.0) Red Blood Count 4.23 x10^6/uL (3.50-5.40) 3.57 x10^6/uL (3.50-5.40) Hemoglobin 12.0 g/dL (12.0-15.5) 10.1 g/dL (12.0-15.5) Hematocrit 35.8 % (36.0-47.0) 30.4 % (36.0-47.0) Mean Corpuscular Volume 85 fL (79-100) 85 fL (79-100) Mean Corpuscular Hemoglobin 29 pg (25-35) 28 pg (25-35) Mean Corpuscular Hemoglobin Concent 34 g/dL (31-37) 33 g/dL (31-37) Red Cell Distribution Width 13.5 % (11.5-14.5) 13.6 % (11.5-14.5) Platelet Count 406 x10^3/uL (140-400) 367 x10^3/uL (140-400) Neutrophils (%) (Auto) 76 % (31-73) 62 % (31-73) Lymphocytes (%) (Auto) 18 % (24-48) 29 % (24-48) Monocytes (%) (Auto) 6 % (0-9) 7 % (0-9) Eosinophils (%) (Auto) 0 % (0-3) 1 % (0-3) Basophils (%) (Auto) 0 % (0-3) 0 % (0-3) Neutrophils # (Auto) 7.4 x10^3/uL (1.8-7.7) 3.5 x10^3/uL (1.8-7.7) Lymphocytes # (Auto) 1.7 x10^3/uL (1.0-4.8) 1.6 x10^3/uL (1.0-4.8) Monocytes # (Auto) 0.6 x10^3/uL (0.0-1.1) 0.4 x10^3/uL (0.0-1.1) Eosinophils # (Auto) 0.0 x10^3/uL (0.0-0.7) 0.1 x10^3/uL (0.0-0.7) Basophils # (Auto) 0.0 x10^3/uL (0.0-0.2) 0.0 x10^3/uL (0.0-0.2) Sodium Level 140 mmol/L (136-145) Potassium Level 4.3 mmol/L (3.5-5.1) Chloride Level 106 mmol/L (98-107) Carbon Dioxide Level 23 mmol/L (21-32) Anion Gap 11 (6-14) Blood Urea Nitrogen 15 mg/dL (7-20) Creatinine 0.6 mg/dL (0.6-1.0) Estimated GFR (Cockcroft-Gault) 108.6 BUN/Creatinine Ratio 25 (6-20) Glucose Level 93 mg/dL (70-99) Calcium Level 9.1 mg/dL (8.5-10.1) Magnesium Level 2.0 mg/dL (1.8-2.4) Total Bilirubin 0.3 mg/dL (0.2-1.0) Aspartate Amino Transf (AST/SGOT) 24 U/L (15-37) Alanine Aminotransferase (ALT/SGPT) 49 U/L (14-59) Alkaline Phosphatase 115 U/L (46-116) Total Protein 7.7 g/dL (6.4-8.2) Albumin 3.5 g/dL (3.4-5.0) Albumin/Globulin Ratio 0.8 (1.0-1.7) Lipase 71 U/L (73-393) Laboratory Tests Test 01/06/21 11:35 01/06/21 12:24 01/07/21 07:05 Urine Collection Type Unknown Urine Color Yellow Urine Clarity Clear Urine pH 8.5 (<5.0-8.0) Urine Specific [place] 1.020 (1.000-1.030) Urine Protein Negative mg/dL (NEG-TRACE) Urine Glucose (UA) Negative mg/dL (NEG) Urine Ketones (Stick) Negative mg/dL (NEG) Urine Blood Negative (NEG) Urine Nitrite Negative (NEG) Urine Bilirubin Negative (NEG) Urine Urobilinogen Dipstick 0.2 mg/dL (0.2 mg/dL) Urine Leukocyte Esterase Negative (NEG) Urine RBC 0 /HPF (0-2) Urine WBC Occ /HPF (0-4) Urine Squamous Epithelial Cells Occ /LPF Urine Bacteria 0 /HPF (0-FEW) White Blood Count 9.7 x10^3/uL (4.0-11.0) 5.6 x10^3/uL (4.0-11.0) Red Blood Count 4.23 x10^6/uL (3.50-5.40) 3.57 x10^6/uL (3.50-5.40) Hemoglobin 12.0 g/dL (12.0-15.5) 10.1 g/dL (12.0-15.5) Hematocrit 35.8 % (36.0-47.0) 30.4 % (36.0-47.0) Mean Corpuscular Volume 85 fL (79-100) 85 fL (79-100) Mean Corpuscular Hemoglobin 29 pg (25-35) 28 pg (25-35) Mean Corpuscular Hemoglobin Concent 34 g/dL (31-37) 33 g/dL (31-37) Red Cell Distribution Width 13.5 % (11.5-14.5) 13.6 % (11.5-14.5) Platelet Count 406 x10^3/uL (140-400) 367 x10^3/uL (140-400) Neutrophils (%) (Auto) 76 % (31-73) 62 % (31-73) Lymphocytes (%) (Auto) 18 % (24-48) 29 % (24-48) Monocytes (%) (Auto) 6 % (0-9) 7 % (0-9) Eosinophils (%) (Auto) 0 % (0-3) 1 % (0-3) Basophils (%) (Auto) 0 % (0-3) 0 % (0-3) Neutrophils # (Auto) 7.4 x10^3/uL (1.8-7.7) 3.5 x10^3/uL (1.8-7.7) Lymphocytes # (Auto) 1.7 x10^3/uL (1.0-4.8) 1.6 x10^3/uL (1.0-4.8) Monocytes # (Auto) 0.6 x10^3/uL (0.0-1.1) 0.4 x10^3/uL (0.0-1.1) Eosinophils # (Auto) 0.0 x10^3/uL (0.0-0.7) 0.1 x10^3/uL (0.0-0.7) Basophils # (Auto) 0.0 x10^3/uL (0.0-0.2) 0.0 x10^3/uL (0.0-0.2) Sodium Level 140 mmol/L (136-145) Potassium Level 4.3 mmol/L (3.5-5.1) Chloride Level 106 mmol/L (98-107) Carbon Dioxide Level 23 mmol/L (21-32) Anion Gap 11 (6-14) Blood Urea Nitrogen 15 mg/dL (7-20) Creatinine 0.6 mg/dL (0.6-1.0) Estimated GFR (Cockcroft-Gault) 108.6 BUN/Creatinine Ratio 25 (6-20) Glucose Level 93 mg/dL (70-99) Calcium Level 9.1 mg/dL (8.5-10.1) Magnesium Level 2.0 mg/dL (1.8-2.4) Total Bilirubin 0.3 mg/dL (0.2-1.0) Aspartate Amino Transf (AST/SGOT) 24 U/L (15-37) Alanine Aminotransferase (ALT/SGPT) 49 U/L (14-59) Alkaline Phosphatase 115 U/L (46-116) Total Protein 7.7 g/dL (6.4-8.2) Albumin 3.5 g/dL (3.4-5.0) Albumin/Globulin Ratio 0.8 (1.0-1.7) Lipase 71 U/L (73-393) Medications Current Medications Ondansetron HCl (Zofran) 4 mg 1X ONCE IV Last administered on 01/06/21at 13:24; Start 01/06/21 at 12:00; Stop 01/06/21 at 12:02; Status DC Sodium Chloride 1,000 ml @ 1,000 mls/hr 1X ONCE IV Last administered on 01/06/21at 13:24; Start 01/06/21 at 12:00; Stop 01/06/21 at 12:59; Status DC Fentanyl Citrate (Fentanyl 2ml Vial) 50 mcg 1X ONCE IV Last administered on 01/06/21at 13:25; Start 01/06/21 at 12:00; Stop 01/06/21 at 12:02; Status DC Iohexol (Omnipaque 300 Mg/ml) 75 ml 1X ONCE IV Last administered on 01/06/21at 12:49; Start 01/06/21 at 12:45; Stop 01/06/21 at 12:46; Status DC Info (CONTRAST GIVEN -- Rx MONITORING) 1 each PRN DAILY PRN MC SEE COMMENTS; Start 01/06/21 at 12:45; Stop 01/08/21 at 12:44; Status Cancel Iohexol (Omnipaque 300 Mg/ml) 100 ml STK-MED ONCE .ROUTE ; Start 01/06/21 at 12:50; Stop 01/06/21 at 12:51; Status DC Ondansetron HCl (Zofran) 4 mg PRN Q8HRS PRN IV NAUSEA/VOMITING; Start 01/06/21 at 13:45; Stop 01/07/21 at 08:03; Status DC Sodium Chloride 1,000 ml @ 125 mls/hr Q8H IV ; Start 01/06/21 at 13:45; Stop 01/07/21 at 13:44 Sodium Chloride 1,000 ml @ 100 mls/hr Q10H IV ; Start 01/06/21 at 13:45; Stop 01/06/21 at 23:44; Status DC Ondansetron HCl (Zofran) 4 mg PRN Q6HRS PRN IVP NAUSEA/VOMITING; Start 01/06/21 at 13:45 Prochlorperazine Edisylate (Compazine) 10 mg PRN Q6HRS PRN IVP NAUSEA/VOMITING- 2ND CHOICE Last administered on 01/06/21at 15:33; Start 01/06/21 at 13:45 Morphine Sulfate (Morphine Sulfate) 2 mg PRN Q1HR PRN IV PAIN; Start 01/06/21 at 13:45 Ketorolac Tromethamine (Toradol 30mg Vial) 30 mg PRN Q6HRS PRN IV PAIN Last administered on 01/06/21at 23:12; Start 01/06/21 at 13:45; Stop 01/11/21 at 13:44 Bisacodyl (Dulcolax Supp) 10 mg PRN DAILY PRN MT CONSTIPATION; Start 01/06/21 at 13:45 Amino Acids/ Glycerin/ Electrolytes 1,000 ml @ 80 mls/hr [id number] IV Last administered on 01/07/21at 04:26; Start 01/06/21 at 16:00 Lorazepam (Ativan Inj) 0.5 mg PRN Q4HRS PRN IVP ANXIETY / AGITATION; Start 01/06/21 at 15:30 Acetaminophen (Tylenol Supp) 650 mg PRN Q6HRS PRN MT MILD PAIN / TEMP > 100.3'F; Start 01/06/21 at 15:30 Iohexol (Omnipaque 300 Mg/ml) 400 ml 1X ONCE PO ; Start 01/07/21 at 08:15; Stop 01/07/21 at 08:16; Status DC Info (CONTRAST GIVEN -- Rx MONITORING) 1 each PRN DAILY PRN MC SEE COMMENTS; Start 01/07/21 at 08:15; Stop 01/09/21 at 08:14 Active Scripts Active Protonix (Pantoprazole Sodium) 40 Mg Tablet.dr 40 Mg PO DAILYAC 30 Days Venlafaxine Hcl 50 Mg Tablet 50 Mg PO DAILY 30 Days Hydrocodone-Apap 5-325 (Hydrocodone Bit/Acetaminophen) 1 Tab Tablet 1 Tab PO PRN Q6HRS PRN Reported Lisinopril 10 Mg Tablet 1 Tab PO DAILY Hydrochlorothiazide Tablet (Hydrochlorothiazide) 12.5 Mg Tablet 25 Mg PO DAILY Prilosec Otc (Omeprazole Magnesium) 20 Mg Tablet.dr 20 Mg PO DAILY Vitals/I & O Vital Sign - Last 24 Hours 01/06/21 01/06/21 01/06/21 01/06/21 09:31 11:36 12:58 13:25 Temp 98.2 98.3 98.2 98.3 Pulse 74 66 Resp 20 22 20 20 B/P (MAP) 133/72 (92) 145/93 (110) Pulse Ox 99 94 O2 Delivery Room Air 01/06/21 01/06/21 01/06/21 01/06/21 13:28 13:58 14:28 19:00 Temp 98.0 98.0 Pulse 64 86 66 73 Resp 17 22 18 20 B/P (MAP) 146/87 (106) 161/83 (109) 163/77 (105) 102/50 (67) Pulse Ox 97 96 98 92 O2 Delivery Room Air Room Air Room Air 01/06/21 01/06/21 01/07/21 01/07/21 19:40 23:00 03:00 08:00 Temp 97.9 97.6 97.9 97.6 Pulse 78 65 Resp 20 20 B/P (MAP) 123/54 (77) 119/48 (71) Pulse Ox 94 96 O2 Delivery Room Air Room Air Room Air Room Air Intake and Output 01/06/21 01/06/21 01/07/21 15:00 23:00 07:00 Intake Total 0 ml 0 ml Balance 0 ml 0 ml Justicifation of Admission Dx: Justifications for Admission: Justification of Admission Dx: Yes TAMMIE REYES MD Jan 07, 2021 09:01
[2021-01-07 09:46] LABS: CALCIUM 8.6 mg/dL (8.5-10.1); CREATININE 0.6 mg/dL (0.6-1.0); GFR 108.6; POTASSIUM 4.6 mmol/L (3.5-5.1)
--- NOTE | 2021-01-07 10:10 | RAD ---
EXAM: Small bowel follow-through exam. HISTORY: Small bowel obstruction. TECHNIQUE: A hydraulic specialist image of the abdomen was obtained. Serial ovaries images were then obtained follow ing the administration of water subtle contrast. Fluoroscopic spot images were obtained at the conclu di of the exam. The total fluoroscopy time was 0.4 minutes. 3 fluoroscopic spot images were obtaine d. COMPARISON: CT dated 01/06/2021. FINDINGS: The hydraulic specialist image of the abdomen demonstrates a nonobstructive bowel gas pattern. There is ga s within nondistended loops of bowel. There is stool within the colon. The images obtained following the administration of water-soluble contrast demonstrate contrast opacification of the small bowel. T he mid to distal small bowel loops within the left lower quadrant are slightly prominent in caliber. However, there is no delayed transit of contrast or transition point to decompressed small bowel to s uggest obstruction. There is a normal small bowel transit time of 60 minutes. Fluoroscopic spot image s demonstrate peristalsis of normal caliber loops of bowel. No mucosal lesion, stricture or extravasa tion is seen. IMPRESSION: No evidence of small bowel obstruction or small bowel mucosal lesion, stricture or extrav asation. The mid to distal small bowel loops are slightly prominent in caliber. However, this is sign ificantly decreased compared to the recent CT and there is no convincing transition point to suggest persistent obstruction. Electronically signed by: Seema Dumont MD (01/07/2021 10:07 AM) [id number]
[2021-01-07 11:00] VITALS: BP 144/85
--- NOTE | 2021-01-07 11:29 | NUR ---
SW following. Discussed with RN, pt from home, room air, NPO. Per surgery - bowel rest and SBS. RN advised pt is feeling better this morning. RN advised no SW needs at this time. SW will continue to follow.
--- NOTE | 2021-01-07 12:12 | PDOC2 ---
GI CONSULT Date of Service: DATE: 01/07/21 TIME: 12:12 Reason For Consult: SBO HPI: HPI: 45 y/o female admitted through ER for third time this month. First admission: LLQ pain w/ left adnexal cystic lesion. S/p laparotomy, JD, left oophorectomy 12/17/20 - path without malignancy. Second admission: Epigastric pain and vomiting. HIDA w/ decreased GB EF 6%. Plans to follow-up for cholecystectomy as outpt 4-6 weeks after oophorectomy. This admission: Tried Ensure on Tuesday and had epigastric pain. Tolerated protein shakes on Tuesday. Had egg white omelette w/ veggies on Tuesday and brown rice with fish for dinner. Then Tuesday had recurrence of epigastric pain w/ vomiting. Pain radiated to LUQ around to left flank. Stooled normally Sat-Sun, had diarrhea on Tue. Concern for SBO on CT. Surgery has seen - no obstruction on SBS. We are asked to see for SBO. She has stooled several times since SBS, feels hungry, has no nausea, and has jonatan upper abdominal discomfort. H/o GERD on Protonix QD. Some irregular bowel habits noted from past encou nters. No dysphagia or bleeding. EGD and colonoscopy by Dr. Dunn in 03/2018 for diarrhea, n/v, and rectal bleeding. Path shows mild to moderate chronic inflammation in distal esophagus (no Peterson's, dysplasia, or malignancy), focal mild non-specific duodenitis (no sprue), and normal random colon biopsies. H/o anemia w/ normal iron profile and B12 deficiency. LFTs elevated earlier this month - now normal. Stool for H. pylori was negative last admission. No liver, pancreas, or PUD history. No NSAIDs. PMH: PMH: HTN, anemia (h/o thalassemia), SLE x 3, hysterectomy w/ right oophorectomy, left oophorectomy (12/2020) FH: Family History: No pertinent hx (no GI cancers), Other (GB disease - sister, mother) Social History: Smoke: No ALCOHOL: none Drugs: None ROS: GEN: Denies fevers, chills, sweats HEENT: Denies blurred vision, sore throat CV: Denies chest pain RESP: Denies shortness of air, cough GI: Per HPI : Denies hematuria, dysuria ENDO: Denies weight changes NEURO: Denies confusion, dizziness MSK: Denies weakness, joint pain/swelling SKIN: Denies jaundice, pruritus Vitals: Vitals: Vital Signs Date Time Temp Pulse Resp B/P (MAP) Pulse Ox O2 Delivery O2 Flow Rate FiO2 01/07/21 08:00 Room Air 01/07/21 03:00 97.6 65 20 119/48 (71) 96 97.6 Labs: Labs: Laboratory Tests Test 01/06/21 12:24 01/07/21 07:05 White Blood Count 9.7 x10^3/uL (4.0-11.0) 5.6 x10^3/uL (4.0-11.0) Red Blood Count 4.23 x10^6/uL (3.50-5.40) 3.57 x10^6/uL (3.50-5.40) Hemoglobin 12.0 g/dL (12.0-15.5) 10.1 g/dL (12.0-15.5) Hematocrit 35.8 % (36.0-47.0) 30.4 % (36.0-47.0) Mean Corpuscular Volume 85 fL (79-100) 85 fL (79-100) Mean Corpuscular Hemoglobin 29 pg (25-35) 28 pg (25-35) Mean Corpuscular Hemoglobin Concent 34 g/dL (31-37) 33 g/dL (31-37) Red Cell Distribution Width 13.5 % (11.5-14.5) 13.6 % (11.5-14.5) Platelet Count 406 x10^3/uL (140-400) 367 x10^3/uL (140-400) Neutrophils (%) (Auto) 76 % (31-73) 62 % (31-73) Lymphocytes (%) (Auto) 18 % (24-48) 29 % (24-48) Monocytes (%) (Auto) 6 % (0-9) 7 % (0-9) Eosinophils (%) (Auto) 0 % (0-3) 1 % (0-3) Basophils (%) (Auto) 0 % (0-3) 0 % (0-3) Neutrophils # (Auto) 7.4 x10^3/uL (1.8-7.7) 3.5 x10^3/uL (1.8-7.7) Lymphocytes # (Auto) 1.7 x10^3/uL (1.0-4.8) 1.6 x10^3/uL (1.0-4.8) Monocytes # (Auto) 0.6 x10^3/uL (0.0-1.1) 0.4 x10^3/uL (0.0-1.1) Eosinophils # (Auto) 0.0 x10^3/uL (0.0-0.7) 0.1 x10^3/uL (0.0-0.7) Basophils # (Auto) 0.0 x10^3/uL (0.0-0.2) 0.0 x10^3/uL (0.0-0.2) Sodium Level 140 mmol/L (136-145) 142 mmol/L (136-145) Potassium Level 4.3 mmol/L (3.5-5.1) 4.6 mmol/L (3.5-5.1) Chloride Level 106 mmol/L (98-107) 108 mmol/L (98-107) Carbon Dioxide Level 23 mmol/L (21-32) 26 mmol/L (21-32) Anion Gap 11 (6-14) 8 (6-14) Blood Urea Nitrogen 15 mg/dL (7-20) 15 mg/dL (7-20) Creatinine 0.6 mg/dL (0.6-1.0) 0.6 mg/dL (0.6-1.0) Estimated GFR (Cockcroft-Gault) 108.6 108.6 BUN/Creatinine Ratio 25 (6-20) Glucose Level 93 mg/dL (70-99) 96 mg/dL (70-99) Calcium Level 9.1 mg/dL (8.5-10.1) 8.6 mg/dL (8.5-10.1) Magnesium Level 2.0 mg/dL (1.8-2.4) Total Bilirubin 0.3 mg/dL (0.2-1.0) Aspartate Amino Transf (AST/SGOT) 24 U/L (15-37) Alanine Aminotransferase (ALT/SGPT) 49 U/L (14-59) Alkaline Phosphatase 115 U/L (46-116) Total Protein 7.7 g/dL (6.4-8.2) Albumin 3.5 g/dL (3.4-5.0) Albumin/Globulin Ratio 0.8 (1.0-1.7) Lipase 71 U/L (73-393) C-Reactive Protein, Quantitative 13.6 mg/L (0-3.3) Allergies: Coded Allergies: dexamethasone (Verified Allergy, Severe, sob, 12/16/20) nalbuphine (Verified Allergy, Severe, sob, 12/16/20) Corticosteroids (Glucocorticoids) (Verified Allergy, Intermediate, Rash, 12/16/20) "CORTISONES" Latex, Natural Rubber (Verified Allergy, Intermediate, 12/16/20) Medications: Current Medications Medications (Trade) Dose Ordered Sig/Stephen Route PRN Reason Start Time Stop Time Status Last Admin Dose Admin Iohexol (Omnipaque 300 Mg/ml) 75 ml 1X ONCE IV 01/06/21 12:45 01/06/21 12:46 DC 01/06/21 12:49 Prochlorperazine Edisylate (Compazine) 10 mg PRN Q6HRS PRN IVP NAUSEA/VOMITING-2ND CHOICE 01/06/21 13:45 01/06/21 15:33 Ketorolac Tromethamine (Toradol 30mg Vial) 30 mg PRN Q6HRS PRN IV PAIN 01/06/21 13:45 01/11/21 13:44 01/06/21 23:12 Amino Acids/ Glycerin/ Electrolytes 1,000 ml @ 80 mls/hr [id number] IV 01/06/21 16:00 01/07/21 04:26 Iohexol (Omnipaque 300 Mg/ml) 400 ml 1X ONCE PO 01/07/21 08:15 01/07/21 08:16 DC 01/07/21 08:40 Imaging: Imaging: CT A/P 01/06 Impression: 1. Small bowel obstruction with dilated loops in the lower abdomen terminating from a central tethering point, likely postsurgical adhesions, cannot exclude c losed loop obstruction. Surgical consultation is recommended. 2. Tethering of the anterior superior bladder to the lower anterior abdominal wall at the site of recent surgical excision. Adjacent inflammatory changes in the fat without abscess identified. SBS 4/28 IMPRESSION: No evidence of small bowel obstruction or small bowel mucosal lesion, stricture or extravasation. The mid to distal small bowel loops are slightly prominent in caliber. However, this is significantly decreased compared to the recent CT and there is no convincing transition point to suggest persistent obstruction. PE: GEN: NAD HEENT: Atraumatic, PERRL LUNGS: CTAB HEART: RRR ABD: on the quiet side, mild epigastric discomfort, soft EXTREMITY: No edema SKIN: No rashes, no jaundice NEURO/PSYCH: A & O 3 A/P: A/P: Abd pain, vomiting SBO on CT - SBS w/o obstruction as above S/p JD and left oophorectomy 03/15/21 Biliary dyskinesia - plans for outpt cholecystectomy in ~4 weeks Anemia, B12 deficiency GERD - on PPI, had EGD in 2018 CRC screen - UTD (2017) -- Imaging as above. Pain improved, no recurrent n/v, and now stooling. Okay to try diet per GI - defer to surgery. Resume PPI and B12. VICENTE GARDNER Jan 07, 2021 12:12
--- NOTE | 2021-01-07 12:35 | CONS ---
DATE OF CONSULTATION: 01/07/2021 HISTORY OF PRESENT ILLNESS: This patient is a 45-year-old female who is obese and had a recent laparotomy and a left side salpingo-oophorectomy with lysis of adhesions and this was done on 12/17/2020 and the patient has been admitted now to the hospital because of excessive nausea or vomiting associated with abdominal pain and also possible intestinal obstruction. However, her GI series as well as CT scan reveals a normal abdomen and pelvis and a followup scan shows no obstruction at this time and she also has a gallbladder problem, which was seen by general surgeon and was recommended to have the gallbladder removed about 4-5 weeks from 12/17-2020. On examination, abdomen feels soft at this time and her surgical scar has healed well and no vaginal bleeding, no fever and today she is feeling much better and she has had a bowel movement and no problems as far as any symptoms or signs of obstruction. IMPRESSION AND PLAN: Postop nausea and vomiting with abdominal pain, pelvic adhesions. Recommendation would be to continue the medical treatment at this time and she should get the cholecystectomy done whenever 4-6 weeks period is over as an elective procedure and as she is feeling much better today, the patient can go home if she is stable and will be seen in the office in 4 weeks for postoperative care and treatment. Thank you for giving me the opportunity to participate in the care and management of this patient. EDMAR/[facility] [place] DR: EDMAR/thor TID: [id number]
[2021-01-07 15:00] VITALS: BP 146/82
--- NOTE | 2021-01-07 18:44 | PDOC ---
SURGICAL PROGRESS NOTE DATE: 01/07/21 TIME: 18:35 Subjective Pt in bathroom imaging suggests resolving bowel obstruction no acute surgical plans. Vital Signs Vital Signs Date Time Temp Pulse Resp B/P (MAP) Pulse Ox O2 Delivery O2 Flow Rate FiO2 01/07/21 15:00 98.0 70 18 146/82 (103) 99 Room Air 98.0 I&O Intake and Output 01/07/21 07:00 Intake Total 0 ml Balance 0 ml Intake Oral 0 ml # Voids 1 Labs Laboratory Tests Test 01/06/21 11:35 01/06/21 12:24 01/07/21 07:05 Urine Collection Type Unknown Urine Color Yellow Urine Clarity Clear Urine pH 8.5 (<5.0-8.0) Urine Specific [place] 1.020 (1.000-1.030) Urine Protein Negative mg/dL (NEG-TRACE) Urine Glucose (UA) Negative mg/dL (NEG) Urine Ketones (Stick) Negative mg/dL (NEG) Urine Blood Negative (NEG) Urine Nitrite Negative (NEG) Urine Bilirubin Negative (NEG) Urine Urobilinogen Dipstick 0.2 mg/dL (0.2 mg/dL) Urine Leukocyte Esterase Negative (NEG) Urine RBC 0 /HPF (0-2) Urine WBC Occ /HPF (0-4) Urine Squamous Epithelial Cells Occ /LPF Urine Bacteria 0 /HPF (0-FEW) White Blood Count 9.7 x10^3/uL (4.0-11.0) 5.6 x10^3/uL (4.0-11.0) Red Blood Count 4.23 x10^6/uL (3.50-5.40) 3.57 x10^6/uL (3.50-5.40) Hemoglobin 12.0 g/dL (12.0-15.5) 10.1 g/dL (12.0-15.5) Hematocrit 35.8 % (36.0-47.0) 30.4 % (36.0-47.0) Mean Corpuscular Volume 85 fL (79-100) 85 fL (79-100) Mean Corpuscular Hemoglobin 29 pg (25-35) 28 pg (25-35) Mean Corpuscular Hemoglobin Concent 34 g/dL (31-37) 33 g/dL (31-37) Red Cell Distribution Width 13.5 % (11.5-14.5) 13.6 % (11.5-14.5) Platelet Count 406 x10^3/uL (140-400) 367 x10^3/uL (140-400) Neutrophils (%) (Auto) 76 % (31-73) 62 % (31-73) Lymphocytes (%) (Auto) 18 % (24-48) 29 % (24-48) Monocytes (%) (Auto) 6 % (0-9) 7 % (0-9) Eosinophils (%) (Auto) 0 % (0-3) 1 % (0-3) Basophils (%) (Auto) 0 % (0-3) 0 % (0-3) Neutrophils # (Auto) 7.4 x10^3/uL (1.8-7.7) 3.5 x10^3/uL (1.8-7.7) Lymphocytes # (Auto) 1.7 x10^3/uL (1.0-4.8) 1.6 x10^3/uL (1.0-4.8) Monocytes # (Auto) 0.6 x10^3/uL (0.0-1.1) 0.4 x10^3/uL (0.0-1.1) Eosinophils # (Auto) 0.0 x10^3/uL (0.0-0.7) 0.1 x10^3/uL (0.0-0.7) Basophils # (Auto) 0.0 x10^3/uL (0.0-0.2) 0.0 x10^3/uL (0.0-0.2) Sodium Level 140 mmol/L (136-145) 142 mmol/L (136-145) Potassium Level 4.3 mmol/L (3.5-5.1) 4.6 mmol/L (3.5-5.1) Chloride Level 106 mmol/L (98-107) 108 mmol/L (98-107) Carbon Dioxide Level 23 mmol/L (21-32) 26 mmol/L (21-32) Anion Gap 11 (6-14) 8 (6-14) Blood Urea Nitrogen 15 mg/dL (7-20) 15 mg/dL (7-20) Creatinine 0.6 mg/dL (0.6-1.0) 0.6 mg/dL (0.6-1.0) Estimated GFR (Cockcroft-Gault) 108.6 108.6 BUN/Creatinine Ratio 25 (6-20) Glucose Level 93 mg/dL (70-99) 96 mg/dL (70-99) Calcium Level 9.1 mg/dL (8.5-10.1) 8.6 mg/dL (8.5-10.1) Magnesium Level 2.0 mg/dL (1.8-2.4) Total Bilirubin 0.3 mg/dL (0.2-1.0) Aspartate Amino Transf (AST/SGOT) 24 U/L (15-37) Alanine Aminotransferase (ALT/SGPT) 49 U/L (14-59) Alkaline Phosphatase 115 U/L (46-116) Total Protein 7.7 g/dL (6.4-8.2) Albumin 3.5 g/dL (3.4-5.0) Albumin/Globulin Ratio 0.8 (1.0-1.7) Lipase 71 U/L (73-393) C-Reactive Protein, Quantitative 13.6 mg/L (0-3.3) Laboratory Tests Test 01/07/21 07:05 White Blood Count 5.6 x10^3/uL (4.0-11.0) Red Blood Count 3.57 x10^6/uL (3.50-5.40) Hemoglobin 10.1 g/dL (12.0-15.5) Hematocrit 30.4 % (36.0-47.0) Mean Corpuscular Volume 85 fL (79-100) Mean Corpuscular Hemoglobin 28 pg (25-35) Mean Corpuscular Hemoglobin Concent 33 g/dL (31-37) Red Cell Distribution Width 13.6 % (11.5-14.5) Platelet Count 367 x10^3/uL (140-400) Neutrophils (%) (Auto) 62 % (31-73) Lymphocytes (%) (Auto) 29 % (24-48) Monocytes (%) (Auto) 7 % (0-9) Eosinophils (%) (Auto) 1 % (0-3) Basophils (%) (Auto) 0 % (0-3) Neutrophils # (Auto) 3.5 x10^3/uL (1.8-7.7) Lymphocytes # (Auto) 1.6 x10^3/uL (1.0-4.8) Monocytes # (Auto) 0.4 x10^3/uL (0.0-1.1) Eosinophils # (Auto) 0.1 x10^3/uL (0.0-0.7) Basophils # (Auto) 0.0 x10^3/uL (0.0-0.2) Sodium Level 142 mmol/L (136-145) Potassium Level 4.6 mmol/L (3.5-5.1) Chloride Level 108 mmol/L (98-107) Carbon Dioxide Level 26 mmol/L (21-32) Anion Gap 8 (6-14) Blood Urea Nitrogen 15 mg/dL (7-20) Creatinine 0.6 mg/dL (0.6-1.0) Estimated GFR (Cockcroft-Gault) 108.6 Glucose Level 96 mg/dL (70-99) Calcium Level 8.6 mg/dL (8.5-10.1) C-Reactive Protein, Quantitative 13.6 mg/L (0-3.3) Problem List Problems Medical Problems: (1) Left sided abdominal pain Status: Acute Justicifation of Admission Dx: Justifications for Admission: Justification of Admission Dx: Yes CORA JAMA MD Jan 07, 2021 18:44
[2021-01-07 19:00] VITALS: BP 130/71
[2021-01-07] MEDS ORDERED: HYDROmorphone 2 MG/ML VIAL IVP PRN (21:30)
[2021-01-07] MEDS: ACETAMINOPHEN 325 MG TABLET. PO PRN (21:46)
[2021-01-07 23:00] VITALS: BP 123/70
[2021-01-08 03:00] VITALS: BP 116/65
[2021-01-08] MEDS: ACETAMINOPHEN 325 MG TABLET. PO PRN (04:29)
[2021-01-08] MEDS: AMINO AC 3%/ELECTROLYTE/GLYCER 1,000 ML IV SCH ×2 (05:30→18:00)
[2021-01-08 07:15] VITALS: BP 130/65
[2021-01-08 07:43] LABS: BASO % 1 % (0-3); EOS # 0.1 x10^3/uL (0.0-0.7); EOS % 1 % (0-3); HEMATOCRIT 32.1 % (36.0-47.0); HEMOGLOBIN 10.8 g/dL (12.0-15.5); LYMPH # 1.7 x10^3/uL (1.0-4.8); LYMPH % 28 % (24-48); MEAN CORPUSCULAR HEMOGLOBIN 29 pg (25-35); MEAN CORPUSCULAR HGB CONC 34 g/dL (31-37); MEAN CORPUSCULAR VOLUME 85 fL (79-100); MONO # 0.4 x10^3/uL (0.0-1.1); MONO % 7 % (0-9); NEUT # 3.7 x10^3/uL (1.8-7.7); NEUT % 63 % (31-73); PLATELET COUNT 371 x10^3/uL (140-400); RED BLOOD COUNT 3.78 x10^6/uL (3.50-5.40); RED CELL DISTRIBUTION WIDTH 13.5 % (11.5-14.5); WHITE BLOOD COUNT 5.9 x10^3/uL (4.0-11.0)
--- NOTE | 2021-01-08 08:51 | PDOC ---
PROGRESS NOTES Date of Service: DATE: 01/08/21 TIME: 08:51 Chief Complaint Chief Complaint Images Images CT abdomen/pelvis w/ IV contrast: Lung bases: Mild dependent changes in the lung bases. Normal heart. General abdomen: No ascites. No free air. Mesenteric edema and fat stranding in the anterior lower abdominal wall at site of recent surgical incision. No focal fluid collection to suggest abscess. Liver : Normal in size and attenuation. No masses seen. Gallbladder/Biliary Tree: Normal gallbladder. No intrahepatic or extrahepatic b iliary ductal dilatation. Pancreas: Normal. Spleen: Normal in size and attenuation. Adrenal glands: Normal. Kidneys: No hydronephrosis or hydroureter. No renal masses identified. Gastrointestinal: Unremarkable decompressed stomach. Progressive dilation and fecalization of left lower quadrant small bowel loops with a couple dilated loops demonstrating equalization of the internal material and thickened wall emanating from a central tethering point best appreciated on axial image 63. The more distal small bowel is relatively decompressed. Unremarkable ascending and transverse colon. Mild wall thickening at the sigmoid colon likely secondary to adjacent inflammatory changes. Lymph nodes: No lymphadenopathy. Vessels: Unremarkable. Pelvic organs: Status post left ovarian mass excision. The bladder demonstrates tethering to the lower abdominal wall surgical incision. Soft tissues: Mild subcutaneous stranding from recent surgical incision. Bones: No acute or aggressive lesions. Impression: 1. Small bowel obstruction with dilated loops in the lower abdomen terminating from a central tethering point, likely postsurgical adhesions, cannot exclude closed loop obstruction. Surgical consultation is recommended. 2. Tethering of the anterior superior bladder to the lower anterior abdominal wall at the site of recent surgical excision. Adjacent inflammatory changes in the fat without abscess identified. VTE Prophylaxis Ordered VTE Prophylaxis Devices: No VTE Pharmacological Prophylaxi: No PREOPERATIVE DIAGNOSES: Pelvic pain, left side adnexal mass. POSTOPERATIVE DIAGNOSES: Pelvic pain, left side adnexal mass. OPERATION PERFORMED: Laparotomy, lysis of adhesions, left side oophorectomy. SENIOR AUTOMATION ENGINEER: Fer Collado MD Assessment/Plan Assessment/Plan A/P: SBO - on CT. General surgery and Lug Loader consulted given her recent surgery. She is refusing NGT, very tearful. NPO, IV morphine prn pain, toradol prn pain, zofran for nausea recently Discharged and now returns with ongoing abdominal pain and vomiting Intractable nausea vomiting - due to SBO, IV antiemetics and pain meds Biliary dyskinesia - noted previously. Gallbladder EF 6%. Notably she has been advised to wait for further surgery 4-6 weeks for elective cholecystectomy given she has had symptoms more than 3 times during the past year. GERD - IV PPI while NPO Hepatic steatosis on imaging - advised low fat diet, less processed foods Tethering of the anterior superior bladder to the lower anterior abdominal wall at the site of recent surgical excision. Patient states she has had abdominal pain on and off since December 15. Patient's pain is associated with nausea vomiting and initially episodes of diarrhea plan ADMIT FEN - NPO, NSS PPX - SCDs FULL CODE Dispo - inpatient for above SURGERY CONSULT GI CONSULT CRP CONSULT DR ABY PRESLEY w/ decreased GB EF 6%. Plans to follow-up for cholecystectomy as outpt 4-6 weeks after oophorectomy. 28 MIN PT exam, chart review, > 50% of time spent with exam, chart review, pt care coordination Justifications for Admission Justifications for Admission Abdominal Pain Indications Is patient in severe pain?: Yes Justification for admission: Patient has severe pain that requires (parenteral analgesic-please state analgesics and route) at least every 4 hours necessitating inpatient level of care. Is NPO status required?: Yes Justification for admission: Patient may require to be NPO for greater 24hours making it medically necessary to manage patient as inpatient. Other Justification intractable abd pain History of Present Illness History of Present Illness Identification/Chief Complaint Chief Complaint Nausea and vomiting with abdominal pain Source Source: Patient History of Present Illness History of Present Illness Ms Schumacher is a 45yo F w/ PMHx morbid obesity, ?lupus who is brought to ED by a friend c/o left-sided abdominal pain, nausea, vomiting. She states her pain in her LUQ and is colicky and is a 10 out of 10. Patient's pain does not radiate. She did have diarrhea overnight on 01/04, but has not had a BM since. Patient states she was able to tolerate protein drinks on 01/04/21. Had some vomiting on 01/05/2021 and has vomited a total of 10 times the past 24 hours. Overnight she developed nausea, vomiting, and left sided and epigastric abdominal pain. She has had abdominal pain since 12/15/2020. She is status post left oophorectomy salpingectomy lysis of adhesions 12/17/2020. She since been readmitted on 12/31/2020 for nausea and vomiting noted with biliary dyskinesia and gallbladder ejection fraction of 6%. Recommend low-fat diet and to follow-up for elective cholecystectomy in 4 to 6 weeks. She notes history of H. pylori infection. She did have EGD and colonoscopy in 2018 with mild duodenitis, but otherwise was benign. Labs with WBC 9.7, Hb 12, platelets 406, NA 140, K4.3, BUN 15, CR 0.6, glucose 93, albumin 2.5. LFTs otherwise within normal laboratory limits. CT abdomen pelvis with concerns for SBO in left lower quadrant with fecalization. Radiology report with possible concern for closed loop. Vomited already once in ED Given IV fentanyl with pain relief and zofran for vomiting. Adamantly opposed to NGT insertion despite encouragement. Admitted for further care with general surgery and Lug Loader consultation. Past Medical History Cardiovascular: HTN Pulmonary: No pertinent hx GI: No pertinent hx Heme/Onc: No pertinent hx Hepatobiliary: No pertinent hx Infectious disease: No pertinent hx Renal/: No pertinent hx Endocrine: No pertinent hx Past Surgical History Past Surgical History: , Hysterectomy, Other (Left oophorectomy, salpingectomy 12/17/2020) Family History Family History: Hypertension Social History Smoke: No ALCOHOL: none Drugs: None Current Medications Current Medications Current Medications Ondansetron HCl (Zofran) 4 mg 1X ONCE IV Last administered on 01/06/21at 13:24; Start 01/06/21 at 12:00; Stop 01/06/21 at 12:02; Status DC Sodium Chloride 1,000 ml @ 1,000 mls/hr 1X ONCE IV Last administered on 01/06/21at 13:24; Start 01/06/21 at 12:00; Stop 01/06/21 at 12:59; Status DC Fentanyl Citrate (Fentanyl 2ml Vial) 50 mcg 1X ONCE IV Last administered on 01/06/21at 13:25; Start 01/06/21 at 12:00; Stop 01/06/21 at 12:02; Status DC Iohexol (Omnipaque 300 Mg/ml) 75 ml 1X ONCE IV Last administered on 01/06/21at 12:49; Start 01/06/21 at 12:45; Stop 01/06/21 at 12:46; Status DC Info (CONTRAST GIVEN -- Rx MONITORING) 1 each PRN DAILY PRN MC SEE COMMENTS; Start 01/06/21 at 12:45; Stop 01/08/21 at 12:44 Iohexol (Omnipaque 300 Mg/ml) 100 ml STK-MED ONCE .ROUTE ; Start 01/06/21 at 12:50; Stop 01/06/21 at 12:51; Status DC Ondansetron HCl (Zofran) 4 mg PRN Q8HRS PRN IV NAUSEA/VOMITING; Start 01/06/21 at 13:45; Stop 01/07/21 at 13:44 Sodium Chloride 1,000 ml @ 125 mls/hr Q8H IV ; Start 01/06/21 at 13:45; Stop 01/07/21 at 13:44 Active Scripts Active Protonix (Pantoprazole Sodium) 40 Mg Tablet.dr 40 Mg PO DAILYAC 30 Days Venlafaxine Hcl 50 Mg Tablet 50 Mg PO DAILY 30 Days Hydrocodone-Apap 5-325 (Hydrocodone Bit/Acetaminophen) 1 Tab Tablet 1 Tab PO PRN Q6HRS PRN Reported Lisinopril 10 Mg Tablet 1 Tab PO DAILY Hydrochlorothiazide Tablet (Hydrochlorothiazide) 12.5 Mg Tablet 25 Mg PO DAILY Prilosec Otc (Omeprazole Magnesium) 20 Mg Tablet.dr 20 Mg PO DAILY Allergies Allergies: Coded Allergies: dexamethasone (Verified Allergy, Severe, sob, 12/16/20) nalbuphine (Verified Allergy, Severe, sob, 12/16/20) Corticosteroids (Glucocorticoids) (Verified Allergy, Intermediate, Rash, 12/16/20) "CORTISONES" Latex, Natural Rubber (Verified Allergy, Intermediate, 12/16/20) ROS General: YES: Fatigue, Malaise, Appetite; No: Chills, Night Sweats, Other PSYCHOLOGICAL ROS: YES: Anxiety; No: Behavioral Disorder, Concentration difficultie, Decreased libido, Depression, Disorientation, Hallucinations, Hostility, Irritablity, Memory difficulties, Mood Swings, Obsessive thoughts, Physical abuse, Sexual abuse, Sleep disturbances, Suicidal ideation, Other Eyes: No Blurry vision, No Decreased vision, No Double vision, No Dry eyes, No Excessive tearing, No Eye Pain, No Itchy Eyes, No Loss of vision, No Photophobia, No Scotomata, No Uses contacts, No Uses glasses, No Other HEENT: No: Heacaches, Visual Changes, Hearing change, Nasal congestion, Nasal discharge, Oral lesions, Sinus pain, Sore Throat, Epistaxis, Sneezing, Snoring, Tinnitus, Vertigo, Vocal changes, Other ALLERGY AND IMMUNOLOGY: No: Hives, Insect Bite Sensitivity, Itchy/Watery Eyes, Nasal Congestion, Post Nasal Drip, Seasonal Allergies, Other Hematological and Lymphatic: No: Bleeding Problems, Blood Clots, Blood Transfusions, Brusing, Night Sweats, Pallor, Swollen Lymph Nodes, Other ENDOCRINE: No: Breast Changes, Galactorrhea, Hair Pattern Changes, Hot Flashes, Malaise/lethargy, Mood Swings, Palpitations, Polydipsia/polyuria, Skin Changes, Temperature Intolerance, Unexpected Weight Changes, Other Breast: No New/Changing Breast Lumps, No Nipple changes, No Nipple discharge, No Other Respiratory: No: Cough, Hemoptysis, Orthopnea, Pleuritic Pain, Shortness of breath, SOB with excertion, Sputum Changes, Stridor, Tachypnea, Wheezing, Other Cardiovascular: No Chest Pain, No Palpitations, No Orthopnea, No Paroxysmal Noc. Dyspnea, No Edema, No Lt Headedness, No Other Gastrointestinal: Yes Nausea, Yes Vomiting, Yes Abdominal Pain; No Diarrhea, No Constipation, No Melena, No Hematochezia, No Other Genitourinary: No Dysuria, No Frequency, No Incontinence, No Hematuria, No Retention, No Discharge, No Urgency, No Pain, No Flank Pain, No Other, No , No , No , No , No , No , No Musculoskeletal: No Gait Disturbance, No Joint Pain, No Joint Stiffness, No Joint Swelling, No Muscle Pain, No Muscular Weakness, No Pain In:, No Swelling In:, No Other Neurological: No Behavorial Changes, No Bowel/Bladder ControlChng, No Confusion, No Dizziness, No Gait Disturbance, No Headaches, No Impaired Coord/balance, No Memory Loss, No Numbness/Tingling, No Seizures, No Speech Problems, No Tremors, No Visual Changes, No Weakness, No Other Skin: No Dry Skin, No Eczema, No Hair Changes, No Lumps, No Mole Changes, No Mottling, No Nail Changes, No Pruritus, No Rash, No Skin Lesion Changes, No Other, No Acne Improved. 4-29 Okay w/ GI to ADAT and DC per primary/surgery. Follow-up w/ surgery re: cholecystectomy as previously discussed. D/C PLANNING 32 MIN 4-28 feeling better, still npo, GI and DR BADILLO consulted D/W RN Vitals Vitals Vital Signs Date Time Temp Pulse Resp B/P (MAP) Pulse Ox O2 Delivery O2 Flow Rate FiO2 01/08/21 07:15 97.9 70 20 130/65 (86) 100 Room Air 97.9 Physical Exam Physical Exam NO DISTRESS, CHEERFUL General: Alert, Oriented X3, Cooperative, No acute distress Heart: Regular rate, Normal S1, Normal S2 Lungs: Clear Abdomen: Normal bowel sounds, Soft, No tenderness, No hepatosplenomegaly, No masses, Other (diffuse tenderness, guarding) Extremities: No clubbing, No cyanosis, No edema, Normal pulses, No tenderness/swelling Skin: No rashes, No breakdown, No significant lesion Labs LABS EXAM: Small bowel follow-through exam. HISTORY: Small bowel obstruction. TECHNIQUE: A processing archivist image of the abdomen was obtained. Serial ovaries images were then obtained following the administration of water subtle contrast. Fluoroscopic spot images were obtained at the conclusion of the exam. The total fluoroscopy time was 0.4 minutes. 3 fluoroscopic spot images were obtained. COMPARISON: CT dated 01/06/2021. FINDINGS: The processing archivist image of the abdomen demonstrates a nonobstructive bowel gas pattern. There is gas within nondistended loops of bowel. There is stool within the colon. The images obtained following the administration of water-soluble contrast demonstrate contrast opacification of the small bowel. The mid to distal small bowel loops within the left lower quadrant are slightly prominent in caliber. However, there is no delayed transit of contrast or transition point to decompressed small bowel to suggest obstruction. There is a normal small bowel transit time of 60 minutes. Fluoroscopic spot images demonstrate peristalsis of normal caliber loops of bowel. No mucosal lesion, stricture or extravasation is seen. IMPRESSION: No evidence of small bowel obstruction or small bowel mucosal lesion, stricture or extravasation. The mid to distal small bowel loops are slightly prominent in caliber. However, this is significantly decreased compared to the recent CT and there is no convincing transition point to suggest persistent obstruction. Electronically signed by: Seema Live MD (01/07/2021 10:07 AM) [id number] DICTATED and SIGNED BY: SEEMA LIVE MD DATE: 01/07/21 [id number] Laboratory Tests Test 01/08/21 07:00 White Blood Count 5.9 x10^3/uL (4.0-11.0) Red Blood Count 3.78 x10^6/uL (3.50-5.40) Hemoglobin 10.8 g/dL (12.0-15.5) Hematocrit 32.1 % (36.0-47.0) Mean Corpuscular Volume 85 fL (79-100) Mean Corpuscular Hemoglobin 29 pg (25-35) Mean Corpuscular Hemoglobin Concent 34 g/dL (31-37) Red Cell Distribution Width 13.5 % (11.5-14.5) Platelet Count 371 x10^3/uL (140-400) Neutrophils (%) (Auto) 63 % (31-73) Lymphocytes (%) (Auto) 28 % (24-48) Monocytes (%) (Auto) 7 % (0-9) Eosinophils (%) (Auto) 1 % (0-3) Basophils (%) (Auto) 1 % (0-3) Neutrophils # (Auto) 3.7 x10^3/uL (1.8-7.7) Lymphocytes # (Auto) 1.7 x10^3/uL (1.0-4.8) Monocytes # (Auto) 0.4 x10^3/uL (0.0-1.1) Eosinophils # (Auto) 0.1 x10^3/uL (0.0-0.7) Basophils # (Auto) 0.0 x10^3/uL (0.0-0.2) Assessment and Plan Assessmemt and Plan Problems Medical Problems: (1) Left sided abdominal pain Status: Acute Comment Review of Relevant I have reviewed the following items klarissa (where applicable) has been applied. Labs Laboratory Tests Test 01/06/21 11:35 01/06/21 12:24 01/07/21 07:05 01/08/21 07:00 Urine Collection Type Unknown Urine Color Yellow Urine Clarity Clear Urine pH 8.5 (<5.0-8.0) Urine Specific [place] 1.020 (1.000-1.030) Urine Protein Negative mg/dL (NEG-TRACE) Urine Glucose (UA) Negative mg/dL (NEG) Urine Ketones (Stick) Negative mg/dL (NEG) Urine Blood Negative (NEG) Urine Nitrite Negative (NEG) Urine Bilirubin Negative (NEG) Urine Urobilinogen Dipstick 0.2 mg/dL (0.2 mg/dL) Urine Leukocyte Esterase Negative (NEG) Urine RBC 0 /HPF (0-2) Urine WBC Occ /HPF (0-4) Urine Squamous Epithelial Cells Occ /LPF Urine Bacteria 0 /HPF (0-FEW) White Blood Count 9.7 x10^3/uL (4.0-11.0) 5.6 x10^3/uL (4.0-11.0) 5.9 x10^3/uL (4.0-11.0) Red Blood Count 4.23 x10^6/uL (3.50-5.40) 3.57 x10^6/uL (3.50-5.40) 3.78 x10^6/uL (3.50-5.40) Hemoglobin 12.0 g/dL (12.0-15.5) 10.1 g/dL (12.0-15.5) 10.8 g/dL (12.0-15.5) Hematocrit 35.8 % (36.0-47.0) 30.4 % (36.0-47.0) 32.1 % (36.0-47.0) Mean Corpuscular Volume 85 fL (79-100) 85 fL (79-100) 85 fL (79-100) Mean Corpuscular Hemoglobin 29 pg (25-35) 28 pg (25-35) 29 pg (25-35) Mean Corpuscular Hemoglobin Concent 34 g/dL (31-37) 33 g/dL (31-37) 34 g/dL (31-37) Red Cell Distribution Width 13.5 % (11.5-14.5) 13.6 % (11.5-14.5) 13.5 % (11.5-14.5) Platelet Count 406 x10^3/uL (140-400) 367 x10^3/uL (140-400) 371 x10^3/uL (140-400) Neutrophils (%) (Auto) 76 % (31-73) 62 % (31-73) 63 % (31-73) Lymphocytes (%) (Auto) 18 % (24-48) 29 % (24-48) 28 % (24-48) Monocytes (%) (Auto) 6 % (0-9) 7 % (0-9) 7 % (0-9) Eosinophils (%) (Auto) 0 % (0-3) 1 % (0-3) 1 % (0-3) Basophils (%) (Auto) 0 % (0-3) 0 % (0-3) 1 % (0-3) Neutrophils # (Auto) 7.4 x10^3/uL (1.8-7.7) 3.5 x10^3/uL (1.8-7.7) 3.7 x10^3/uL (1.8-7.7) Lymphocytes # (Auto) 1.7 x10^3/uL (1.0-4.8) 1.6 x10^3/uL (1.0-4.8) 1.7 x10^3/uL (1.0-4.8) Monocytes # (Auto) 0.6 x10^3/uL (0.0-1.1) 0.4 x10^3/uL (0.0-1.1) 0.4 x10^3/uL (0.0-1.1) Eosinophils # (Auto) 0.0 x10^3/uL (0.0-0.7) 0.1 x10^3/uL (0.0-0.7) 0.1 x10^3/uL (0.0-0.7) Basophils # (Auto) 0.0 x10^3/uL (0.0-0.2) 0.0 x10^3/uL (0.0-0.2) 0.0 x10^3/uL (0.0-0.2) Sodium Level 140 mmol/L (136-145) 142 mmol/L (136-145) Potassium Level 4.3 mmol/L (3.5-5.1) 4.6 mmol/L (3.5-5.1) Chloride Level 106 mmol/L (98-107) 108 mmol/L (98-107) Carbon Dioxide Level 23 mmol/L (21-32) 26 mmol/L (21-32) Anion Gap 11 (6-14) 8 (6-14) Blood Urea Nitrogen 15 mg/dL (7-20) 15 mg/dL (7-20) Creatinine 0.6 mg/dL (0.6-1.0) 0.6 mg/dL (0.6-1.0) Estimated GFR (Cockcroft-Gault) 108.6 108.6 BUN/Creatinine Ratio 25 (6-20) Glucose Level 93 mg/dL (70-99) 96 mg/dL (70-99) Calcium Level 9.1 mg/dL (8.5-10.1) 8.6 mg/dL (8.5-10.1) Magnesium Level 2.0 mg/dL (1.8-2.4) Total Bilirubin 0.3 mg/dL (0.2-1.0) Aspartate Amino Transf (AST/SGOT) 24 U/L (15-37) Alanine Aminotransferase (ALT/SGPT) 49 U/L (14-59) Alkaline Phosphatase 115 U/L (46-116) Total Protein 7.7 g/dL (6.4-8.2) Albumin 3.5 g/dL (3.4-5.0) Albumin/Globulin Ratio 0.8 (1.0-1.7) Lipase 71 U/L (73-393) C-Reactive Protein, Quantitative 13.6 mg/L (0-3.3) Laboratory Tests Test 01/08/21 07:00 White Blood Count 5.9 x10^3/uL (4.0-11.0) Red Blood Count 3.78 x10^6/uL (3.50-5.40) Hemoglobin 10.8 g/dL (12.0-15.5) Hematocrit 32.1 % (36.0-47.0) Mean Corpuscular Volume 85 fL (79-100) Mean Corpuscular Hemoglobin 29 pg (25-35) Mean Corpuscular Hemoglobin Concent 34 g/dL (31-37) Red Cell Distribution Width 13.5 % (11.5-14.5) Platelet Count 371 x10^3/uL (140-400) Neutrophils (%) (Auto) 63 % (31-73) Lymphocytes (%) (Auto) 28 % (24-48) Monocytes (%) (Auto) 7 % (0-9) Eosinophils (%) (Auto) 1 % (0-3) Basophils (%) (Auto) 1 % (0-3) Neutrophils # (Auto) 3.7 x10^3/uL (1.8-7.7) Lymphocytes # (Auto) 1.7 x10^3/uL (1.0-4.8) Monocytes # (Auto) 0.4 x10^3/uL (0.0-1.1) Eosinophils # (Auto) 0.1 x10^3/uL (0.0-0.7) Basophils # (Auto) 0.0 x10^3/uL (0.0-0.2) Medications Current Medications Ondansetron HCl (Zofran) 4 mg 1X ONCE IV Last administered on 01/06/21at 13:24; Start 01/06/21 at 12:00; Stop 01/06/21 at 12:02; Status DC Sodium Chloride 1,000 ml @ 1,000 mls/hr 1X ONCE IV Last administered on 01/06/21at 13:24; Start 01/06/21 at 12:00; Stop 01/06/21 at 12:59; Status DC Fentanyl Citrate (Fentanyl 2ml Vial) 50 mcg 1X ONCE IV Last administered on 01/06/21at 13:25; Start 01/06/21 at 12:00; Stop 01/06/21 at 12:02; Status DC Iohexol (Omnipaque 300 Mg/ml) 75 ml 1X ONCE IV Last administered on 01/06/21at 12:49; Start 01/06/21 at 12:45; Stop 01/06/21 at 12:46; Status DC Info (CONTRAST GIVEN -- Rx MONITORING) 1 each PRN DAILY PRN MC SEE COMMENTS; Start 01/06/21 at 12:45; Stop 01/08/21 at 12:44; Status Cancel Iohexol (Omnipaque 300 Mg/ml) 100 ml STK-MED ONCE .ROUTE ; Start 01/06/21 at 12:50; Stop 01/06/21 at 12:51; Status DC Ondansetron HCl (Zofran) 4 mg PRN Q8HRS PRN IV NAUSEA/VOMITING; Start 01/06/21 at 13:45; Stop 01/07/21 at 08:03; Status DC Sodium Chloride 1,000 ml @ 125 mls/hr Q8H IV ; Start 01/06/21 at 13:45; Stop 01/07/21 at 13:44; Status DC Sodium Chloride 1,000 ml @ 100 mls/hr Q10H IV ; Start 01/06/21 at 13:45; Stop 01/06/21 at 23:44; Status DC Ondansetron HCl (Zofran) 4 mg PRN Q6HRS PRN IVP NAUSEA/VOMITING, 1st CHOICE; Start 01/06/21 at 13:45 Prochlorperazine Edisylate (Compazine) 10 mg PRN Q6HRS PRN IVP NAUSEA/VOMITING- 2ND CHOICE Last administered on 01/06/21at 15:33; Start 01/06/21 at 13:45 Morphine Sulfate (Morphine Sulfate) 2 mg PRN Q1HR PRN IV PAIN mild; Start at 13:45 Ketorolac Tromethamine (Toradol 30mg Vial) 30 mg PRN Q6HRS PRN IV PAIN Last administered on 01/06/21at 23:12; Start 01/06/21 at 13:45; Stop 01/11/21 at 13:44 Bisacodyl (Dulcolax Supp) 10 mg PRN DAILY PRN [place] CONSTIPATION; Start 01/06/21 at 13:45 Amino Acids/ Glycerin/ Electrolytes 1,000 ml @ 80 mls/hr [id number] IV Last administered on 01/07/21at 23:06; Start 01/06/21 at 16:00 Lorazepam (Ativan Inj) 0.5 mg PRN Q4HRS PRN IVP ANXIETY / AGITATION; Start 01/06/21 at 15:30 Acetaminophen (Tylenol Supp) 650 mg PRN Q6HRS PRN [place] MILD PAIN / TEMP > 100.3'F; Start 01/06/21 at 15:30 Iohexol (Omnipaque 300 Mg/ml) 400 ml 1X ONCE PO Last administered on 01/07/21at 08:40; Start 01/07/21 at 08:15; Stop 01/07/21 at 08:16; Status DC Info (CONTRAST GIVEN -- Rx MONITORING) 1 each PRN DAILY PRN MC SEE COMMENTS; Start 01/07/21 at 08:15; Stop 01/09/21 at 08:14 Acetaminophen (Tylenol) 650 mg PRN Q6HRS PRN PO MILD PAIN / TEMP > 100.3'F Last administered on 01/08/21at 04:29; Start 01/07/21 at 21:15 Hydromorphone HCl (Dilaudid) 2 mg PRN Q4HRS PRN IVP PAIN moderate to severe; Start 01/07/21 at 21:30; Status Cancel Active Scripts Active Protonix (Pantoprazole Sodium) 40 Mg Tablet.dr 40 Mg PO DAILYAC 30 Days Venlafaxine Hcl 50 Mg Tablet 50 Mg PO DAILY 30 Days Hydrocodone-Apap 5-325 (Hydrocodone Bit/Acetaminophen) 1 Tab Tablet 1 Tab PO PRN Q6HRS PRN Reported Lisinopril 10 Mg Tablet 1 Tab PO DAILY Hydrochlorothiazide Tablet (Hydrochlorothiazide) 12.5 Mg Tablet 25 Mg PO DAILY Prilosec Otc (Omeprazole Magnesium) 20 Mg Tablet.dr 20 Mg PO DAILY Vitals/I & O Vital Sign - Last 24 Hours 01/07/21 01/07/21 01/07/21 01/07/21 11:00 15:00 19:00 20:00 Temp 98.6 98.0 97.8 98.6 98.0 97.8 Pulse 72 70 74 Resp 18 18 18 B/P (MAP) 144/85 (104) 146/82 (103) 130/71 (90) Pulse Ox 98 99 100 O2 Delivery Room Air Room Air Room Air 01/07/21 01/08/21 01/08/21 23:00 03:00 07:15 Temp 97.9 97.7 97.9 97.9 97.7 97.9 Pulse 65 63 70 Resp 16 16 20 B/P (MAP) 123/70 (87) 116/65 (82) 130/65 (86) Pulse Ox 98 97 100 O2 Delivery Room Air Intake and Output 01/07/21 01/07/21 01/08/21 15:00 23:00 07:00 Intake Total 320 ml 1000 ml Balance 320 ml 1000 ml Justicifation of Admission Dx: Justifications for Admission: Justification of Admission Dx: Yes TAMMIE REYES MD Jan 08, 2021 08:51
--- NOTE | 2021-01-08 09:14 | PDOC ---
Date of Service: DATE: 01/08/21 TIME: 09:10 Subjective: Subjective: Feels much better - was so glad to have chicken broth. No pain, no n/v, liquid stools. Wants to advance diet and discharge home. Objective: Vital Signs: Vital Signs Date Time Temp Pulse Resp B/P (MAP) Pulse Ox O2 Delivery O2 Flow Rate FiO2 01/08/21 07:15 97.9 70 20 130/65 (86) 100 Room Air 97.9 Labs: Laboratory Tests Test 01/08/21 07:00 White Blood Count 5.9 x10^3/uL Red Blood Count 3.78 x10^6/uL Hemoglobin 10.8 g/dL Hematocrit 32.1 % Mean Corpuscular Volume 85 fL Mean Corpuscular Hemoglobin 29 pg Mean Corpuscular Hemoglobin Concent 34 g/dL Red Cell Distribution Width 13.5 % Platelet Count 371 x10^3/uL Neutrophils (%) (Auto) 63 % Lymphocytes (%) (Auto) 28 % Monocytes (%) (Auto) 7 % Eosinophils (%) (Auto) 1 % Basophils (%) (Auto) 1 % Neutrophils # (Auto) 3.7 x10^3/uL Lymphocytes # (Auto) 1.7 x10^3/uL Monocytes # (Auto) 0.4 x10^3/uL Eosinophils # (Auto) 0.1 x10^3/uL Basophils # (Auto) 0.0 x10^3/uL PE: GEN: NAD LUNGS: CTAB HEART: RRR ABD: BS more active today, soft, non-tender NEURO/PSYCH: A & O 3 A/P: SBO - resolving, likely 2/2 adhesions Biliary dyskinesia Anemia, B12 deficiency, GERD -- Improved. Okay w/ GI to [facility] and DC per primary/surgery. Follow-up w/ surgery re: cholecystectomy as previously discussed. Justicifation of Admission Dx: Justifications for Admission: Justification of Admission Dx: Yes VICENTE GARDNER Jan 08, 2021 09:14
[2021-01-08] MEDS ORDERED: CYANOCOBALAMIN (VITAMIN B-12) 1,000 MCG TABLET. PO SCH (09:15)
[2021-01-08] MEDS ORDERED: PANTOPRAZOLE 40 MG TABLET.DR. PO SCH (09:15)
[2021-01-08 11:10] VITALS: BP 134/80
[2021-01-08 11:11] LABS: CALCIUM 8.9 mg/dL (8.5-10.1); CREATININE 0.6 mg/dL (0.6-1.0); GFR 108.6; POTASSIUM 4.7 mmol/L (3.5-5.1)
--- NOTE | 2021-01-08 12:04 | PDOC ---
MIKEL [employer]AN [employer] 01/08/21 1204: SURGICAL PROGRESS NOTE DATE: 01/08/21 TIME: 12:03 Subjective no pain for 2 days stooling clears so far Vital Signs Vital Signs Date Time Temp Pulse Resp B/P (MAP) Pulse Ox O2 Delivery O2 Flow Rate FiO2 01/08/21 11:10 98.2 78 18 134/80 (98) 99 Room Air 98.2 I&O Intake and Output 01/08/21 07:00 Intake Total 1320 ml Balance 1320 ml Intake Oral 320 ml IV Total 1000 ml # Voids 3 General: Alert, Oriented X3, Cooperative Abdomen: Soft, No tenderness Labs Laboratory Tests Test 01/06/21 12:24 01/07/21 07:05 01/08/21 07:00 White Blood Count 9.7 x10^3/uL (4.0-11.0) 5.6 x10^3/uL (4.0-11.0) 5.9 x10^3/uL (4.0-11.0) Red Blood Count 4.23 x10^6/uL (3.50-5.40) 3.57 x10^6/uL (3.50-5.40) 3.78 x10^6/uL (3.50-5.40) Hemoglobin 12.0 g/dL (12.0-15.5) 10.1 g/dL (12.0-15.5) 10.8 g/dL (12.0-15.5) Hematocrit 35.8 % (36.0-47.0) 30.4 % (36.0-47.0) 32.1 % (36.0-47.0) Mean Corpuscular Volume 85 fL (79-100) 85 fL (79-100) 85 fL (79-100) Mean Corpuscular Hemoglobin 29 pg (25-35) 28 pg (25-35) 29 pg (25-35) Mean Corpuscular Hemoglobin Concent 34 g/dL (31-37) 33 g/dL (31-37) 34 g/dL (31-37) Red Cell Distribution Width 13.5 % (11.5-14.5) 13.6 % (11.5-14.5) 13.5 % (11.5-14.5) Platelet Count 406 x10^3/uL (140-400) 367 x10^3/uL (140-400) 371 x10^3/uL (140-400) Neutrophils (%) (Auto) 76 % (31-73) 62 % (31-73) 63 % (31-73) Lymphocytes (%) (Auto) 18 % (24-48) 29 % (24-48) 28 % (24-48) Monocytes (%) (Auto) 6 % (0-9) 7 % (0-9) 7 % (0-9) Eosinophils (%) (Auto) 0 % (0-3) 1 % (0-3) 1 % (0-3) Basophils (%) (Auto) 0 % (0-3) 0 % (0-3) 1 % (0-3) Neutrophils # (Auto) 7.4 x10^3/uL (1.8-7.7) 3.5 x10^3/uL (1.8-7.7) 3.7 x10^3/uL (1.8-7.7) Lymphocytes # (Auto) 1.7 x10^3/uL (1.0-4.8) 1.6 x10^3/uL (1.0-4.8) 1.7 x10^3/uL (1.0-4.8) Monocytes # (Auto) 0.6 x10^3/uL (0.0-1.1) 0.4 x10^3/uL (0.0-1.1) 0.4 x10^3/uL (0.0-1.1) Eosinophils # (Auto) 0.0 x10^3/uL (0.0-0.7) 0.1 x10^3/uL (0.0-0.7) 0.1 x10^3/uL (0.0-0.7) Basophils # (Auto) 0.0 x10^3/uL (0.0-0.2) 0.0 x10^3/uL (0.0-0.2) 0.0 x10^3/uL (0.0-0.2) Sodium Level 140 mmol/L (136-145) 142 mmol/L (136-145) 141 mmol/L (136-145) Potassium Level 4.3 mmol/L (3.5-5.1) 4.6 mmol/L (3.5-5.1) 4.7 mmol/L (3.5-5.1) Chloride Level 106 mmol/L (98-107) 108 mmol/L (98-107) 106 mmol/L (98-107) Carbon Dioxide Level 23 mmol/L (21-32) 26 mmol/L (21-32) 26 mmol/L (21-32) Anion Gap 11 (6-14) 8 (6-14) 9 (6-14) Blood Urea Nitrogen 15 mg/dL (7-20) 15 mg/dL (7-20) 14 mg/dL (7-20) Creatinine 0.6 mg/dL (0.6-1.0) 0.6 mg/dL (0.6-1.0) 0.6 mg/dL (0.6-1.0) Estimated GFR (Cockcroft-Gault) 108.6 108.6 108.6 BUN/Creatinine Ratio 25 (6-20) Glucose Level 93 mg/dL (70-99) 96 mg/dL (70-99) 89 mg/dL (70-99) Calcium Level 9.1 mg/dL (8.5-10.1) 8.6 mg/dL (8.5-10.1) 8.9 mg/dL (8.5-10.1) Magnesium Level 2.0 mg/dL (1.8-2.4) Total Bilirubin 0.3 mg/dL (0.2-1.0) Aspartate Amino Transf (AST/SGOT) 24 U/L (15-37) Alanine Aminotransferase (ALT/SGPT) 49 U/L (14-59) Alkaline Phosphatase 115 U/L (46-116) Total Protein 7.7 g/dL (6.4-8.2) Albumin 3.5 g/dL (3.4-5.0) Albumin/Globulin Ratio 0.8 (1.0-1.7) Lipase 71 U/L (73-393) C-Reactive Protein, Quantitative 13.6 mg/L (0-3.3) Laboratory Tests Test 01/08/21 07:00 White Blood Count 5.9 x10^3/uL (4.0-11.0) Red Blood Count 3.78 x10^6/uL (3.50-5.40) Hemoglobin 10.8 g/dL (12.0-15.5) Hematocrit 32.1 % (36.0-47.0) Mean Corpuscular Volume 85 fL (79-100) Mean Corpuscular Hemoglobin 29 pg (25-35) Mean Corpuscular Hemoglobin Concent 34 g/dL (31-37) Red Cell Distribution Width 13.5 % (11.5-14.5) Platelet Count 371 x10^3/uL (140-400) Neutrophils (%) (Auto) 63 % (31-73) Lymphocytes (%) (Auto) 28 % (24-48) Monocytes (%) (Auto) 7 % (0-9) Eosinophils (%) (Auto) 1 % (0-3) Basophils (%) (Auto) 1 % (0-3) Neutrophils # (Auto) 3.7 x10^3/uL (1.8-7.7) Lymphocytes # (Auto) 1.7 x10^3/uL (1.0-4.8) Monocytes # (Auto) 0.4 x10^3/uL (0.0-1.1) Eosinophils # (Auto) 0.1 x10^3/uL (0.0-0.7) Basophils # (Auto) 0.0 x10^3/uL (0.0-0.2) Sodium Level 141 mmol/L (136-145) Potassium Level 4.7 mmol/L (3.5-5.1) Chloride Level 106 mmol/L (98-107) Carbon Dioxide Level 26 mmol/L (21-32) Anion Gap 9 (6-14) Blood Urea Nitrogen 14 mg/dL (7-20) Creatinine 0.6 mg/dL (0.6-1.0) Estimated GFR (Cockcroft-Gault) 108.6 Glucose Level 89 mg/dL (70-99) Calcium Level 8.9 mg/dL (8.5-10.1) Problem List Problems Medical Problems: (1) Left sided abdominal pain Status: Acute Assessment/Plan ok to advance to low fat diet if tolerating can dc home , FU 2 weeks Justicifation of Admission Dx: Justifications for Admission: Justification of Admission Dx: Yes TAMMIE ROMAN MD 01/08/21 1217: SURGICAL PROGRESS NOTE Assessment/Plan Agree with Aislinn assessment and plan [employer] Jan 08, 2021 12:04 TAMMIE ROMAN MD Jan 08, 2021 12:17
--- NOTE | 2021-01-08 13:58 | PDOC3 ---
Discharge Summary Date of Admission: Jan 06, 2021 Date of Discharge: Jan 08, 2021 Follow-Up: 3-5 days Admitting Diagnosis comment: Impression: 1. Small bowel obstruction with dilated loops in the lower abdomen terminating from a central tethering point, likely postsurgical adhesions, cannot exclude closed loop obstruction. Surgical consultation is recommended. 2. Tethering of the anterior superior bladder to the lower anterior abdominal wall at the site of recent surgical excision. Adjacent inflammatory changes in the fat without abscess identified. VTE Prophylaxis Ordered VTE Prophylaxis Devices: No VTE Pharmacological Prophylaxi: No HPI History of Present Illness History of Present Illness Ms Schumacher is a 45yo F w/ PMHx morbid obesity, ?lupus who is brought to ED by a friend c/o left-sided abdominal pain, nausea, vomiting. She states her pain in her LUQ and is colicky and is a 10 out of 10. Patient's pain does not radiate. She did have diarrhea overnight on 01/04, but has not had a BM since. Patient states she was able to tolerate protein drinks on 01/04/21. Had some vomiting on 01/05/2021 and has vomited a total of 10 times the past 24 hours. Overnight she developed nausea, vomiting, and left sided and epigastric abdominal pain. She has had abdominal pain since 12/15/2020. She is status post left oophorectomy salpingectomy lysis of adhesions 12/17/2020. She since been readmitted on 12/31/2020 for nausea and vomiting noted with biliary dyskinesia and gallbladder ejection fraction of 6%. Recommend low-fat diet and to follow-up for elective cholecystectomy in 4 to 6 weeks. She notes history of H. pylori infection. She did have EGD and colonoscopy in 2018 with mild duodenitis, but otherwise was benign. Labs with WBC 9.7, Hb 12, platelets 406, NA 140, K4.3, BUN 15, CR 0.6, glucose 93, albumin 2.5. LFTs otherwise within normal laboratory limits. CT abdomen pelvis with concerns for SBO in left lower quadrant with fecalization. Radiology report with possible concern for closed loop. Vomited already once in ED Given IV fentanyl with pain relief and zofran for vomiting. Adamantly opposed to NGT insertion despite encouragement. Admitted for further care with general surgery and [employer] Services Specialist consultation. Past Medical History Cardiovascular: HTN Pulmonary: No pertinent hx GI: No pertinent hx Heme/Onc: No pertinent hx Hepatobiliary: No pertinent hx Infectious disease: No pertinent hx Renal/: No pertinent hx Endocrine: No pertinent hx RECENT SURGERY PREOPERATIVE DIAGNOSES: Pelvic pain, left side adnexal mass. POSTOPERATIVE DIAGNOSES: Pelvic pain, left side adnexal mass. OPERATION PERFORMED: Laparotomy, lysis of adhesions, left side oophorectomy. HISTORICAL SOCIETY DIRECTOR: Fer Collado MD D/C CONDITION EXCELLENT PROGNOSIS GOOD CONSULTS SURGERY, GI, PHOTOGRAPHIC EDITOR COMPLICATIONS NONE D/C MEDS SEE MAR== DIET ADAT====== SEE SURGERY SOON DIRECTED DISCHARGE DX Assessment/Plan A/P: SBO - on CT. General surgery and Park Services Specialist consulted given her recent surgery. She is refusing NGT, very tearful. NPO, IV morphine prn pain, toradol prn pain, zofran for nausea recently Discharged and now returns with ongoing abdominal pain and vomiting Intractable nausea vomiting - due to SBO, IV antiemetics and pain meds Biliary dyskinesia - noted previously. Gallbladder EF 6%. Notably she has been advised to wait for further surgery 4-6 weeks for elective cholecystectomy given she has had symptoms more than 3 times during the past year. GERD - IV PPI while NPO Hepatic steatosis on imaging - advised low fat diet, less processed foods Tethering of the anterior superior bladder to the lower anterior abdominal wall at the site of recent surgical excision. Patient states she has had abdominal pain on and off since December 15. Patient's pain is associated with nausea vomiting and initially episodes of diarrhea plan ADMIT FEN - NPO, NSS PPX - SCDs FULL CODE Dispo - inpatient for above SURGERY CONSULT GI CONSULT CRP CONSULT DR ABY PRESLEY w/ decreased GB EF 6%. Plans to follow-up for cholecystectomy as outpt 4-6 weeks after oophorectomy. 32 MIN PT exam, chart review D/C PLANNING , > 50% of time spent with exam, ch art review, pt care coordination Justifications for Admission Justifications for Admission Abdominal Pain Indications Is patient in severe pain?: Yes Justification for admission: Patient has severe pain that requires (parenteral analgesic-please state analgesics and route) at least every 4 hours necessitating inpatient level of care. Is NPO status required?: Yes Justification for admission: Patient may require to be NPO for greater 24hours making it medically necessary to manage patient as inpatient. Other Justification intractable abd pain History of Present Illness History of Present Illness Identification/Chief Complaint Chief Complaint Nausea and vomiting with abdominal pain Source Source: Patient History of Present Illness History of Present Illness Ms Schumacher is a 45yo F w/ PMHx morbid obesity, ?lupus who is brought to ED by a friend c/o left-sided abdominal pain, nausea, vomiting. She states her pain in her LUQ and is colicky and is a 10 out of 10. Patient's pain does not radiate. She did have diarrhea overnight on 01/04, but has not had a BM since. Patient states she was able to tolerate protein drinks on 01/04/21. Had some vomiting on 01/05/2021 and has vomited a total of 10 times the past 24 hours. Overnight she developed nausea, vomiting, and left sided and epigastric abdominal pain. She has had abdominal pain since 12/15/2020. She is status post left oophorectomy salpingectomy lysis of adhesions 12/17/2020. She since been readmitted on 12/31/2020 for nausea and vomiting noted with biliary dyskinesia and gallbladder ejection fraction of 6%. Recommend low-fat diet and to follow-up for elective c holecystectomy in 4 to 6 weeks. She notes history of H. pylori infection. She did have EGD and colonoscopy in 2018 with mild duodenitis, but otherwise was benign. Labs with WBC 9.7, Hb 12, platelets 406, NA 140, K4.3, BUN 15, CR 0.6, glucose 93, albumin 2.5. LFTs otherwise within normal laboratory limits. CT abdomen pelvis with concerns for SBO in left lower quadrant with fecaliza tion. Radiology report with possible concern for closed loop. Vomited already once in ED Given IV fentanyl with pain relief and zofran for vomiting. Adamantly opposed to NGT insertion despite encouragement. Admitted for further care with general surgery and [employer] Services Specialist consultation. Past Medical History Cardiovascular: HTN Pulmonary: No pertinent hx GI: No pertinent hx Heme/Onc: No pertinent hx Hepatobiliary: No pertinent hx Infectious disease: No pertinent hx Renal/: No pertinent hx Endocrine: No pertinent hx Past Surgical History Past Surgical History: , Hysterectomy, Other (Left oophorectomy, salpingectomy 12/17/2020) Family History Family History: Hypertension Social History Smoke: No ALCOHOL: none Drugs: None Current Medications Current Medications Current Medications Ondansetron HCl (Zofran) 4 mg 1X ONCE IV Last administered on 01/06/21at 13:24; Start 01/06/21 at 12:00; Stop 01/06/21 at 12:02; Status DC Sodium Chloride 1,000 ml @ 1,000 mls/hr 1X ONCE IV Last administered on 01/06/21at 13:24; Start 01/06/21 at 12:00; Stop 01/06/21 at 12:59; Status DC Fentanyl Citrate (Fentanyl 2ml Vial) 50 mcg 1X ONCE IV Last administered on 01/06/21at 13:25; Start 01/06/21 at 12:00; Stop 01/06/21 at 12:02; Status DC Iohexol (Omnipaque 300 Mg/ml) 75 ml 1X ONCE IV Last administered on 01/06/21at 12:49; Start 01/06/21 at 12:45; Stop 01/06/21 at 12:46; Status DC Info (CONTRAST GIVEN -- Rx MONITORING) 1 each PRN DAILY PRN MC SEE COMMENTS; Start 01/06/21 at 12:45; Stop 01/08/21 at 12:44 Iohexol (Omnipaque 300 Mg/ml) 100 ml STK-MED ONCE .ROUTE ; Start 01/06/21 at 12:50; Stop 01/06/21 at 12:51; Status DC Ondansetron HCl (Zofran) 4 mg PRN Q8HRS PRN IV NAUSEA/VOMITING; Start 01/06/21 at 13:45; Stop 01/07/21 at 13:44 Sodium Chloride 1,000 ml @ 125 mls/hr Q8H IV ; Start 01/06/21 at 13:45; Stop 01/07/21 at 13:44 Active Scripts Active Protonix (Pantoprazole Sodium) 40 Mg Tablet.dr 40 Mg PO DAILYAC 30 Days Venlafaxine Hcl 50 Mg Tablet 50 Mg PO DAILY 30 Days Hydrocodone-Apap 5-325 (Hydrocodone Bit/Acetaminophen) 1 Tab Tablet 1 Tab PO PRN Q6HRS PRN Reported Lisinopril 10 Mg Tablet 1 Tab PO DAILY Hydrochlorothiazide Tablet (Hydrochlorothiazide) 12.5 Mg Tablet 25 Mg PO DAILY Prilosec Otc (Omeprazole Magnesium) 20 Mg Tablet.dr 20 Mg PO DAILY Allergies Allergies: Coded Allergies: dexamethasone (Verified Allergy, Severe, sob, 12/16/20) nalbuphine (Verified Allergy, Severe, sob, 12/16/20) Corticosteroids (Glucocorticoids) (Verified Allergy, Intermediate, Rash, 12/16/20) "CORTISONES" Latex, Natural Rubber (Verified Allergy, Intermediate, 12/16/20) ROS General: YES: Fatigue, Malaise, Appetite; No: Chills, Night Sweats, Other PSYCHOLOGICAL ROS: YES: Anxiety; No: Behavioral Disorder, Concentration difficultie, Decreased libido, Depression, Disorientation, Hallucinations, Hostility, Irritablity, Memory difficulties, Mood Swings, Obsessive thoughts, Physical abuse, Sexual abuse, Sleep disturbances, Suicidal ideation, Other Eyes: No Blurry vision, No Decreased vision, No Double vision, No Dry eyes, No Excessive tearing, No Eye Pain, No Itchy Eyes, No Loss of vision, No Photophobia, No Scotomata, No Uses contacts, No Uses glasses, No Other HEENT: No: Heacaches, Visual Changes, Hearing change, Nasal congestion, Nasal discharge, Oral lesions, Sinus pain, Sore Throat, Epistaxis, Sneezing, Snoring, Tinnitus, Vertigo, Vocal changes, Other ALLERGY AND IMMUNOLOGY: No: Hives, Insect Bite Sensitivity, Itchy/Watery Eyes, Nasal Congestion, Post Nasal Drip, Seasonal Allergies, Other Hematological and Lymphatic: No: Bleeding Problems, Blood Clots, Blood Transfusions, Brusing, Night Sweats, Pallor, Swollen Lymph Nodes, Other ENDOCRINE: No: Breast Changes, Galactorrhea, Hair Pattern Changes, Hot Flashes, Malaise/lethargy, Mood Swings, Palpitations, Polydipsia/polyuria, Skin Changes, Temperature Intolerance, Unexpected Weight Changes, Other Breast: No New/Changing Breast Lumps, No Nipple changes, No Nipple discharge, No Other Respiratory: No: Cough, Hemoptysis, Orthopnea, Pleuritic Pain, Shortness of breath, SOB with excertion, Sputum Changes, Stridor, Tachypnea, Wheezing, Other Cardiovascular: No Chest Pain, No Palpitations, No Orthopnea, No Paroxysmal Noc. Dyspnea, No Edema, No Lt Headedness, No Other Gastrointestinal: Yes Nausea, Yes Vomiting, Yes Abdominal Pain; No Diarrhea, No Constipation, No Melena, No Hematochezia, No Other Genitourinary: No Dysuria, No Frequency, No Incontinence, No Hematuria, No Retention, No Discharge, No Urgency, No Pain, No Flank Pain, No Other, No , No , No , No , No , No , No Musculoskeletal: No Gait Disturbance, No Joint Pain, No Joint Stiffness, No Joint Swelling, No Muscle Pain, No Muscular Weakness, No Pain In:, No Swelling In:, No Other Neurological: No Behavorial Changes, No Bowel/Bladder ControlChng, No Confusion, No Dizziness, No Gait Disturbance, No Headaches, No Impaired Coord/balance, No Memory Loss, No Numbness/Tingling, No Seizures, No Speech Problems, No Tremors, No Visual Changes, No Weakness, No Other Skin: No Dry Skin, No Eczema, No Hair Changes, No Lumps, No Mole Changes, No Mottling, No Nail Changes, No Pruritus, No Rash, No Skin Lesion Changes, No Other, No Acne Improved. 01-08 Okay w/ GI to ADAT and DC per primary/surgery. Follow-up w/ surgery re: cholecystectomy as previously discussed. D/C PLANNING 32 MIN -28 feeling better, still npo, GI and DR BADILLO consulted D/W RN Vitals Vitals Vital Signs Date Time Temp Pulse Resp B/P (MAP) Pulse Ox O2 Delivery O2 Flow Rate FiO2 01/08/21 07:15 97.9 70 20 130/65 (86) 100 Room Air 97.9 Physical Exam Physical Exam NO DISTRESS, CHEERFUL General: Alert, Oriented X3, Cooperative, No acute distress Heart: Regular rate, Normal S1, Normal S2 Lungs: Clear Abdomen: Normal bowel sounds, Soft, No tenderness, No hepatosplenomegaly, No masses, Other (diffuse tenderness, guarding) Extremities: No clubbing, No cyanosis, No edema, Normal pulses, No tenderness/swelling Skin: No rashes, No breakdown, No significant lesion Labs LABS EXAM: Small bowel follow-through exam. HISTORY: Small bowel obstruction. TECHNIQUE: A rn infusion image of the abdomen was obtained. Serial ovaries images were then obtained following the administration of water subtle contrast. Fluoroscopic spot images were obtained at the conclusion of the exam. The total fluoroscopy time was 0.4 minutes. 3 fluoroscopic spot images were obtained. COMPARISON: CT dated 01/06/2021. FINDINGS: The rn infusion image of the abdomen demonstrates a nonobstructive bowel gas pattern. There is gas within nondistended loops of bowel. There is stool within the colon. The images obtained following the administration of water-soluble contrast demonstrate contrast opacification of the small bowel. The mid to distal small bowel loops within the left lower quadrant are slightly prominent in caliber. However, there is no delayed transit of contrast or transition point to decompressed small bowel to suggest obstruction. There is a normal small bowel transit time of 60 minutes. Fluoroscopic spot images demonstrate peristalsis of normal caliber loops of bowel. No mucosal lesion, stricture or extravasation is seen. IMPRESSION: No evidence of small bowel obstruction or small bowel mucosal lesion, stricture or extravasation. The mid to distal small bowel loops are slightly prominent in caliber. However, this is significantly decreased compared to the recent CT and there is no convincing transition point to suggest per sistent obstruction. Electronically signed by: Seema Live MD (01/07/2021 10:07 AM) [id number] DICTATED and SIGNED BY: SEEMA LIVE MD DATE: 01/07/21 [id number] 0 FINAL DIAGNOSIS Problems Medical Problems: (1) Left sided abdominal pain Status: Acute Brief Hospital Course Ms. Schumacher is a 45 old [sex] who presented with [ABDOMINAL PAIN, VOMITING, INTRACTABLE, RESOLVED ] CONDITION AT DISCHARGE: Improved Discharge Medications Current Medications Ondansetron HCl (Zofran) 4 mg 1X ONCE IV Last administered on 01/06/21at 13:24; Start 01/06/21 at 12:00; Stop 01/06/21 at 12:02; Status DC Sodium Chloride 1,000 ml @ 1,000 mls/hr 1X ONCE IV Last administered on 01/06/21at 13:24; Start 01/06/21 at 12:00; Stop 01/06/21 at 12:59; Status DC Fentanyl Citrate (Fentanyl 2ml Vial) 50 mcg 1X ONCE IV Last administered on 01/06/21at 13:25; Start 01/06/21 at 12:00; Stop 01/06/21 at 12:02; Status DC Iohexol (Omnipaque 300 Mg/ml) 75 ml 1X ONCE IV Last administered on 01/06/21at 12:49; Start 01/06/21 at 12:45; Stop 01/06/21 at 12:46; Status DC Info (CONTRAST GIVEN -- Rx MONITORING) 1 each PRN DAILY PRN MC SEE COMMENTS; Start 01/06/21 at 12:45; Stop 01/08/21 at 12:44; Status Cancel Iohexol (Omnipaque 300 Mg/ml) 100 ml STK-MED ONCE .ROUTE ; Start 01/06/21 at 12:50; Stop 01/06/21 at 12:51; Status DC Ondansetron HCl (Zofran) 4 mg PRN Q8HRS PRN IV NAUSEA/VOMITING; Start 01/06/21 at 13:45; Stop 01/07/21 at 08:03; Status DC Sodium Chloride 1,000 ml @ 125 mls/hr Q8H IV ; Start 01/06/21 at 13:45; Stop 01/07/21 at 13:44; Status DC Sodium Chloride 1,000 ml @ 100 mls/hr Q10H IV ; Start 01/06/21 at 13:45; Stop 01/06/21 at 23:44; Status DC Ondansetron HCl (Zofran) 4 mg PRN Q6HRS PRN IVP NAUSEA/VOMITING, 1st CHOICE; Start 01/06/21 at 13:45 Prochlorperazine Edisylate (Compazine) 10 mg PRN Q6HRS PRN IVP NAUSEA/VOMITING- 2ND CHOICE Last administered on 01/06/21at 15:33; Start 01/06/21 at 13:45 Morphine Sulfate (Morphine Sulfate) 2 mg PRN Q1HR PRN IV PAIN mild; Start 01/06/21 at 13:45 Ketorolac Tromethamine (Toradol 30mg Vial) 30 mg PRN Q6HRS PRN IV PAIN Last administered on 01/06/21at 23:12; Start 01/06/21 at 13:45; Stop 01/11/21 at 13:44 Bisacodyl (Dulcolax Supp) 10 mg PRN DAILY PRN [place] CONSTIPATION; Start 01/06/21 at 13:45 Amino Acids/ Glycerin/ Electrolytes 1,000 ml @ 80 mls/hr [id number] IV Last administered on 01/07/21at 23:06; Start 01/06/21 at 16:00 Lorazepam (Ativan Inj) 0.5 mg PRN Q4HRS PRN IVP ANXIETY / AGITATION; Start 01/06/21 at 15:30 Acetaminophen (Tylenol Supp) 650 mg PRN Q6HRS PRN WA MILD PAIN / TEMP > 100.3'F; Start 01/06/21 at 15:30 Iohexol (Omnipaque 300 Mg/ml) 400 ml 1X ONCE PO Last administered on 01/07/21at 08:40; Start 01/07/21 at 08:15; Stop 01/07/21 at 08:16; Status DC Info (CONTRAST GIVEN -- Rx MONITORING) 1 each PRN DAILY PRN MC SEE COMMENTS; Start 01/07/21 at 08:15; Stop 01/09/21 at 08:14 Acetaminophen (Tylenol) 650 mg PRN Q6HRS PRN PO MILD PAIN / TEMP > 100.3'F Last administered on 01/08/21at 04:29; Start 01/07/21 at 21:15 Hydromorphone HCl (Dilaudid) 2 mg PRN Q4HRS PRN IVP PAIN moderate to severe; Start 01/07/21 at 21:30; Status Cancel Pantoprazole Sodium (Protonix) 40 mg DAILYAC PO Last administered on 01/08/21at 11:24; Start 01/08/21 at 09:15 Cyanocobalamin (Vitamin B-12) 1,000 mcg DAILY PO Last administered on 01/08/21at 11:24; Start 01/08/21 at 09:15 Active Scripts Active Protonix (Pantoprazole Sodium) 40 Mg Tablet.dr 40 Mg PO DAILYAC 30 Days Venlafaxine Hcl 50 Mg Tablet 50 Mg PO DAILY 30 Days Hydrocodone-Apap 5-325 (Hydrocodone Bit/Acetaminophen) 1 Tab Tablet 1 Tab PO PRN Q6HRS PRN Reported Lisinopril 10 Mg Tablet 1 Tab PO DAILY Hydrochlorothiazide Tablet (Hydrochlorothiazide) 12.5 Mg Tablet 25 Mg PO DAILY Prilosec Otc (Omeprazole Magnesium) 20 Mg Tablet.dr 20 Mg PO DAILY Vital Signs Vital Signs Date Time Temp Pulse Resp B/P (MAP) Pulse Ox O2 Delivery O2 Flow Rate FiO2 01/08/21 11:10 98.2 78 18 134/80 (98) 99 Room Air 98.2 Labs Laboratory Tests Test 01/07/21 07:05 01/08/21 07:00 White Blood Count 5.6 x10^3/uL (4.0-11.0) 5.9 x10^3/uL (4.0-11.0) Red Blood Count 3.57 x10^6/uL (3.50-5.40) 3.78 x10^6/uL (3.50-5.40) Hemoglobin 10.1 g/dL (12.0-15.5) 10.8 g/dL (12.0-15.5) Hematocrit 30.4 % (36.0-47.0) 32.1 % (36.0-47.0) Mean Corpuscular Volume 85 fL (79-100) 85 fL (79-100) Mean Corpuscular Hemoglobin 28 pg (25-35) 29 pg (25-35) Mean Corpuscular Hemoglobin Concent 33 g/dL (31-37) 34 g/dL (31-37) Red Cell Distribution Width 13.6 % (11.5-14.5) 13.5 % (11.5-14.5) Platelet Count 367 x10^3/uL (140-400) 371 x10^3/uL (140-400) Neutrophils (%) (Auto) 62 % (31-73) 63 % (31-73) Lymphocytes (%) (Auto) 29 % (24-48) 28 % (24-48) Monocytes (%) (Auto) 7 % (0-9) 7 % (0-9) Eosinophils (%) (Auto) 1 % (0-3) 1 % (0-3) Basophils (%) (Auto) 0 % (0-3) 1 % (0-3) Neutrophils # (Auto) 3.5 x10^3/uL (1.8-7.7) 3.7 x10^3/uL (1.8-7.7) Lymphocytes # (Auto) 1.6 x10^3/uL (1.0-4.8) 1.7 x10^3/uL (1.0-4.8) Monocytes # (Auto) 0.4 x10^3/uL (0.0-1.1) 0.4 x10^3/uL (0.0-1.1) Eosinophils # (Auto) 0.1 x10^3/uL (0.0-0.7) 0.1 x10^3/uL (0.0-0.7) Basophils # (Auto) 0.0 x10^3/uL (0.0-0.2) 0.0 x10^3/uL (0.0-0.2) Sodium Level 142 mmol/L (136-145) 141 mmol/L (136-145) Potassium Level 4.6 mmol/L (3.5-5.1) 4.7 mmol/L (3.5-5.1) Chloride Level 108 mmol/L (98-107) 106 mmol/L (98-107) Carbon Dioxide Level 26 mmol/L (21-32) 26 mmol/L (21-32) Anion Gap 8 (6-14) 9 (6-14) Blood Urea Nitrogen 15 mg/dL (7-20) 14 mg/dL (7-20) Creatinine 0.6 mg/dL (0.6-1.0) 0.6 mg/dL (0.6-1.0) Estimated GFR (Cockcroft-Gault) 108.6 108.6 Glucose Level 96 mg/dL (70-99) 89 mg/dL (70-99) Calcium Level 8.6 mg/dL (8.5-10.1) 8.9 mg/dL (8.5-10.1) C-Reactive Protein, Quantitative 13.6 mg/L (0-3.3) Laboratory Tests Test 01/08/21 07:00 White Blood Count 5.9 x10^3/uL (4.0-11.0) Red Blood Count 3.78 x10^6/uL (3.50-5.40) Hemoglobin 10.8 g/dL (12.0-15.5) Hematocrit 32.1 % (36.0-47.0) Mean Corpuscular Volume 85 fL (79-100) Mean Corpuscular Hemoglobin 29 pg (25-35) Mean Corpuscular Hemoglobin Concent 34 g/dL (31-37) Red Cell Distribution Width 13.5 % (11.5-14.5) Platelet Count 371 x10^3/uL (140-400) Neutrophils (%) (Auto) 63 % (31-73) Lymphocytes (%) (Auto) 28 % (24-48) Monocytes (%) (Auto) 7 % (0-9) Eosinophils (%) (Auto) 1 % (0-3) Basophils (%) (Auto) 1 % (0-3) Neutrophils # (Auto) 3.7 x10^3/uL (1.8-7.7) Lymphocytes # (Auto) 1.7 x10^3/uL (1.0-4.8) Monocytes # (Auto) 0.4 x10^3/uL (0.0-1.1) Eosinophils # (Auto) 0.1 x10^3/uL (0.0-0.7) Basophils # (Auto) 0.0 x10^3/uL (0.0-0.2) Sodium Level 141 mmol/L (136-145) Potassium Level 4.7 mmol/L (3.5-5.1) Chloride Level 106 mmol/L (98-107) Carbon Dioxide Level 26 mmol/L (21-32) Anion Gap 9 (6-14) Blood Urea Nitrogen 14 mg/dL (7-20) Creatinine 0.6 mg/dL (0.6-1.0) Estimated GFR (Cockcroft-Gault) 108.6 Glucose Level 89 mg/dL (70-99) Calcium Level 8.9 mg/dL (8.5-10.1) Allergies Allergies Coded Allergies Type Severity Reaction Last Updated Verified dexamethasone Allergy Severe sob 12/16/20 Yes nalbuphine Allergy Severe sob 12/16/20 Yes Corticosteroids (Glucocorticoids) Allergy Intermediate Rash 12/16/20 Yes Latex, Natural Rubber Allergy Intermediate 12/16/20 Yes Disposition/Orders: D/C to Home Justicifation of Admission Dx: Justifications for Admission: Justification of Admission Dx: Yes TAMMIE REYES MD Jan 08, 2021 13:58
[2021-01-08] MEDS ORDERED: CYAN-25 PO (14:00)
[2021-01-08] MEDS ORDERED: ONDA4TAB7 PO (14:00)
[2021-01-08] MEDS ORDERED: ACET325T21 PO (14:00)
--- NOTE | 2021-01-08 14:01 | DISCH ---
DISCHARGE INSTRUCTIONS Condition on Discharge Condition on Discharge: Stable Activity After Discharge Activity Instructions for Disc: Activity as tolerated Lifting Instructions after Dis: No heavy lifting Exercise Instruction after Dis: Walk 15 min, 3 x per day Driving Instructions after Dis: Do not drive today Weight Bearing Status after Di: As tolerated Diet after Discharge Diet after Discharge: Full Liquid, Low Fat Diet Texture: Regular Liquid Texture: Thin Liquid Checks after Discharge Checks after discharge: Check blood press - daily Contacting the DR. after DC Call your doctor for: If your condition worsens Follow-Up Follow up with: SURGERY SOON DIRECTED TAMMIE REYES MD Jan 08, 2021 14:01
[2021-01-08 15:04] VITALS: BP 111/60
--- NOTE | 2021-01-08 18:03 | NUR ---
Patient verbalized discharge instructions. Patients IV was discontinued.
== END 2021-01-08 18:05 | disposition home or self-care (01) | DRG 390 ==
LOC: ER 08:39 → 4 NORTH 13:40
PROVIDERS: ADMIT Internal Medicine; ATTEND Internal Medicine
DX: K56.609 Unspecified intestinal obstruction, unspecified as to partial versus complete obstruction (principal); R10.9 Unspecified abdominal pain; I10 Essential (primary) hypertension; E53.8 Deficiency of other specified B group vitamins; K76.0 Fatty (change of) liver, not elsewhere classified; K82.8 Other specified diseases of gallbladder; M32.9 Systemic lupus erythematosus, unspecified; N73.6 Female pelvic peritoneal adhesions (postinfective); N83.209 Unspecified ovarian cyst, unspecified side; Z79.899 Other long term (current) drug therapy; Z82.49 Family history of ischemic heart disease and other diseases of the circulatory system; Z86.19 Personal history of other infectious and parasitic diseases; Z90.710 Acquired absence of both cervix and uterus; Z90.721 Acquired absence of ovaries, unilateral; E66.01 Morbid (severe) obesity due to excess calories; Z91.040 Latex allergy status; Z88.8 Allergy status to other drugs, medicaments and biological substances; Z91.048 Other nonmedicinal substance allergy status; K21.9 Gastro-esophageal reflux disease without esophagitis; D64.9 Anemia, unspecified; Z68.39 Body mass index [BMI] 39.0-39.9, adult
CPT/HCPCS: 36415; 74177; 74250; 80048; 80053; 81001; 83690; 83735; 85025; 86140; 96361; 96374; 96375; 99285; J0780; J1885; J2405; J3010; J3490; J7030; Q9967; G0378

== ENCOUNTER 2021-04-06 12:46 | Emergency (ER) | payer MEDICAID ==
[~2021-04-06] VITALS: Ht 162.6 cm; Wt 91.0 kg
[~2021-04-06 12:46] MED LIST changes: +ACET325T21 PO; +CYAN-25 PO; +ONDA4TAB7 PO
--- NOTE | 2021-04-06 13:32 | PHYS DOC ---
Past Medical History Past Medical History: Anemia Additional Past Medical Histor: lupus, ovarian cyst Past Surgical History: , Hysterectomy Smoking Status: Never Smoker Alcohol Use: None Drug Use: None General Adult EDM: Chief Complaint: COUGH HPI: HPI: Patient is a 46 year old female who present to ER for evaluation of 7-day history of nonproductive cough, body aches, sore throat, fever and chills. Pat ient denies being exposed to anybody with COVID-19 infection however she is not vaccinated for COVID-19. Patient denies any chest pain, no abdominal pain, no nausea vomiting. Patient denies any headache. Review of Systems: Review of Systems: Constitutional: Denies fever or chills. [] Eyes: Denies change in visual acuity. [] HENT: Positive for nasal congestion or sore throat. Respiratory: Positive for cough, negative for double breathing Cardiovascular: Denies chest pain or edema. [] GI: Denies abdominal pain, nausea, vomiting, bloody stools or diarrhea. [] : Denies dysuria. [] Musculoskeletal: Denies back pain or joint pain. [] Integument: Denies rash. [] Neurologic: Denies headache, focal weakness or sensory changes. [] Endocrine: Denies polyuria or polydipsia. [] Lymphatic: Denies swollen glands. [] Psychiatric: Denies depression or anxiety. [] Heart Score: C/O Chest Pain: N/A Risk Factors: Risk Factors: DM, Current or recent (<one month) smoker, HTN, HLP, family history of CAD, obesity. Risk Scores: Score 0 - 3: 2.5% MACE over next 6 weeks - Discharge Home Score 4 - 6: 20.3% MACE over next 6 weeks - Admit for Clinical Observation Score 7 - 10: 72.7% MACE over next 6 weeks - Early Invasive Strategies Allergies: Allergies: Allergies Coded Allergies Type Severity Reaction Last Updated Verified dexamethasone Allergy Severe sob 12/16/20 Yes nalbuphine Allergy Severe sob 12/16/20 Yes Corticosteroids (Glucocorticoids) Allergy Intermediate Rash 12/16/20 Yes Latex, Natural Rubber Allergy Intermediate 12/16/20 Yes Physical Exam: PE: Constitutional: Well developed, well nourished, no acute distress, non-toxic appearance. [] HENT: Normocephalic, atraumatic, bilateral external ears normal, oropharynx moist and erythema, no oral exudates, nose normal. [] Eyes: PERRLA, EOMI, conjunctiva normal, no discharge. [] Neck: Normal range of motion, no tenderness, supple, no stridor. [] Cardiovascular:Heart rate regular rhythm, positive for systolic heart murmur Lungs & Thorax: Bilateral breath sounds clear to auscultation [] Abdomen: Bowel sounds normal, soft, no tenderness, no masses, no pulsatile masses. [] Skin: Warm, dry, no erythema, no rash. [] Back: No tenderness, no CVA tenderness. [] Extremities: No tenderness, no cyanosis, no clubbing, ROM intact, no edema. [] Neurologic: Alert and oriented X 3, normal motor function, normal sensory function, no focal deficits noted. [] Psychologic: Affect normal, judgement normal, mood normal. [] Current Patient Data: Labs: Laboratory Tests Test 04/06/21 13:45 SARS-CoV-2 Antigen (Rapid) Negative Vital Signs: Vital Signs Date Time Temp Pulse Resp B/P (MAP) Pulse Ox O2 Delivery O2 Flow Rate FiO2 04/06/21 13:19 97.8 94 18 154/62 (77) 98 Room Air 97.8 EKG: EKG: [] Radiology/Procedures: Radiology/Procedures: [][facility] [address] [place], [place] [id number] IMAGING REPORT Signed PATIENT: GABINO MCGUIRE ACCOUNT: [id number] : 1975 LOCATION: ER AGE: 46 SEX: F EXAM STATUS: REG ER ORD. PHYSICIAN: CHRISTOPHER GUZMAN DO REASON: cough PROCEDURE: CHEST AP ONLY AP chest x-ray HISTORY: Cough. FINDINGS: Heart size normal. Mediastinal silhouette is normal. No pneumothorax, pulmonary opacities or pleural effusions. Bones are unremarkable. IMPRESSION: No acute process. Electronically signed by: Prateek Minor MD (04/06/2021 2:09 PM) [facility] [place]CTATED and SIGNED BY: PRATEEK MINOR MD DATE: 04/06/21 [id number] 0 Course & Med Decision Making: Course & Med Decision Making Pertinent Labs and Imaging studies reviewed. (See chart for details) [] Jimmieon Disclaimer: Dragon Disclaimer: This electronic medical record was generated, in whole or in part, using a voice recognition dictation system. Departure Departure Impression: Primary Impression: Bronchitis Disposition: HOME / SELF CARE / HOMELESS Condition: STABLE Referrals: MARITA AGUILERA MD (PCP) Follow up with your doctor this week for reevaluation Patient Instructions: Acute Bronchitis Additional Instructions: Thank you for visiting our Emergency Department. We appreciate you trusting us with your care. If any additional problems come up don't hesitate to return to visit us. Please follow up with your primary care provider so they can plan additional care if needed and know about the problem that you had. If symptoms worsen come back to the Emergency Department. Any concerning symptoms that start such as chest pain, shortness of air, weakness or numbness on one side of the body, running high fevers or any other concerning symptoms return to the ER. Scripts Azithromycin (ZITHROMAX) 250 Mg Tablet 1 PKG PO UD for 5 Days, #6 TAB Prov: CHRISTOPHER GUZMAN DO 04/06/21 CHRISTOPHER GUZMAN DO Apr 06, 2021 13:32
--- NOTE | 2021-04-06 14:12 | RAD ---
AP chest x-ray HISTORY: Cough. FINDINGS: Heart size normal. Mediastinal silhouette is normal. No pneumothorax, pulmonary opacities o r pleural effusions. Bones are unremarkable. IMPRESSION: No acute process. Electronically signed by: Alex Minor MD (04/06/2021 2:09 PM) [facility] [place]
[2021-04-06 15:20] VITALS: BP 138/80
[2021-04-06] MEDS ORDERED: AZIT250T PO (15:24)
--- NOTE | 2021-04-08 09:51 | NUR ---
IP: Attempted to contact pt concerning covid results. Phone number provided is not a working number.
== END 2021-04-06 15:44 | disposition home or self-care (01) ==
LOC: ER 12:46
DX: J40 Bronchitis, not specified as acute or chronic (principal); Z20.822 Contact with and (suspected) exposure to COVID-19; Z88.1 Allergy status to other antibiotic agents; Z91.040 Latex allergy status; Z88.8 Allergy status to other drugs, medicaments and biological substances
CPT/HCPCS: 71045; 87070; 87426; 87880; 99284; U0003; U0005

== ENCOUNTER 2021-10-16 18:26 | Emergency (ER) | payer MEDICAID ==
[~2021-10-16] VITALS: Ht 152.4 cm; Wt 95.0 kg
[~2021-10-16 18:26] MED LIST changes: +AZIT250T PO
--- NOTE | 2021-10-16 19:42 | PHYS DOC ---
Past Medical History Past Medical History: Anemia (SETH LARKIN APRN) Past Surgical History: , Hysterectomy (SETH LARKIN APRN) Smoking Status: Never Smoker Alcohol Use: None Drug Use: None (SETH LARKIN APRN) General Adult EDM: Chief Complaint: COUGH HPI: HPI: Patient is a 46-year-old female who presents to the emergency department with multiple complaints. She reports on Tuesday she started experiencing a green productive cough with blood-tinged sputum, myalgia, headache, shortness of breath, nausea and midsternal chest pain as well as rib pain. Patient reports that the chest pain is constant but is worse with coughing and deep inspiration. Patient is reporting rib cramping due to the coughing. She has been taking DayQuil and NyQuil for her symptoms at home. She saw her primary care provider on Tuesday and had a negative rapid COVID. She denies vomiting, diarrhea, fevers. History of fibromyalgia. (SETH LARKIN APRN) Review of Systems: Review of Systems: Constitutional: negative unless reported in HPI Eyes: negative unless reported in HPI HENT: negative unless reported in HPI Respiratory: negative unless reported in HPI Cardiovascular: negative unless reported in HPI GI: negative unless reported in HPI : negative unless reported in HPI Musculoskeletal: negative unless reported in HPI Integument: negative unless reported in HPI Neurologic: negative unless reported in HPI Endocrine: negative unless reported in HPI Lymphatic: negative unless reported in HPI Psychiatric: negative unless reported in HPI (SETH LARKIN APRN) Heart Score: C/O Chest Pain: Yes HEART Score for Chest Pain: HEART Score for Chest Pain Response (Comments) Value History Slighlty/Non-Suspicious 0 ECG Normal 0 Age < 45 0 Risk Factors 1 or 2 Risk Factors 1 Troponin < Normal Limit 0 Total 1 Risk Factors: Risk Factors: DM, Current or recent (<one month) smoker, HTN, HLP, family history of CAD, obesity. Risk Scores: Score 0 - 3: 2.5% MACE over next 6 weeks - Discharge Home Score 4 - 6: 20.3% MACE over next 6 weeks - Admit for Clinical Observation Score 7 - 10: 72.7% MACE over next 6 weeks - Early Invasive Strategies (SETH LARKIN APRN) Allergies: Allergies: Allergies Coded Allergies Type Severity Reaction Last Updated Verified dexamethasone Allergy Severe sob 12/16/20 Yes nalbuphine Allergy Severe sob 12/16/20 Yes Corticosteroids (Glucocorticoids) Allergy Intermediate Rash 12/16/20 Yes Latex, Natural Rubber Allergy Intermediate 12/16/20 Yes (SETH LARKIN APRN) Physical Exam: PE: Constitutional: Well developed, well nourished, no acute distress, non-toxic appearance. [] HENT: Normocephalic, atraumatic, bilateral external ears normal, oropharynx moist, no oral exudates, nose normal. [] Eyes: PERRL, EOMI, conjunctiva normal, no discharge. [] Neck: Normal range of motion, no tenderness, supple, no stridor. [] Cardiovascular:Heart rate regular rhythm, no murmur [] Lungs & Thorax: Bilateral breath sounds clear to auscultation, midsternal chest pain reproducible with palpation [] Abdomen: Bowel sounds normal, soft, no tenderness, no masses, no pulsatile mas ses. [] Skin: Warm, dry, no erythema, no rash. [] Back: Normal range of motion Extremities: No tenderness, no cyanosis, no clubbing, ROM intact, no edema. [] Neurologic: Alert and oriented X 3, normal motor function, normal sensory function, no focal deficits noted. [] Psychologic: Affect normal, judgement normal, mood normal. [] (SETH LARKIN APRN) Current Patient Data: Labs: Laboratory Tests Test 10/16/21 20:25 10/16/21 20:30 10/16/21 21:03 White Blood Count 10.7 x10^3/uL Red Blood Count 4.52 x10^6/uL Hemoglobin 12.3 g/dL Hematocrit 37.6 % Mean Corpuscular Volume 83 fL Mean Corpuscular Hemoglobin 27 pg Mean Corpuscular Hemoglobin Concent 33 g/dL Red Cell Distribution Width 14.1 % Platelet Count 347 x10^3/uL Neutrophils (%) (Auto) 59 % Lymphocytes (%) (Auto) 30 % Monocytes (%) (Auto) 10 % Eosinophils (%) (Auto) 1 % Basophils (%) (Auto) 1 % Neutrophils # (Auto) 6.3 x10^3/uL Lymphocytes # (Auto) 3.2 x10^3/uL Monocytes # (Auto) 1.0 x10^3/uL Eosinophils # (Auto) 0.1 x10^3/uL Basophils # (Auto) 0.1 x10^3/uL Sodium Level 138 mmol/L Potassium Level 3.9 mmol/L Chloride Level 104 mmol/L Carbon Dioxide Level 28 mmol/L Anion Gap 6 Blood Urea Nitrogen 16 mg/dL Creatinine 0.7 mg/dL Estimated GFR (Cockcroft-Gault) 90.5 BUN/Creatinine Ratio 23 Glucose Level 102 mg/dL Calcium Level 9.5 mg/dL Total Bilirubin 0.4 mg/dL Aspartate Amino Transf (AST/SGOT) 38 U/L Alanine Aminotransferase (ALT/SGPT) 98 U/L Alkaline Phosphatase 152 U/L Troponin I High Sensitivity 15 ng/L Total Protein 8.9 g/dL Albumin 3.6 g/dL Albumin/Globulin Ratio 0.7 Influenza Type A Antigen Negative Influenza Type B Antigen Negative SARS-CoV-2 Antigen (Rapid) Negative Bedside Urine HCG, Qualitative Hcg negative Current Medications Medications (Trade) Dose Ordered Sig/Stephen Route PRN Reason Start Time Stop Time Status Last Admin Dose Admin Iohexol (Omnipaque 350 Mg/ml) 100 ml 1X ONCE IV 10/16/21 21:30 10/16/21 21:31 DC 10/16/21 21:52 Info (CONTRAST GIVEN -- Rx MONITORING) 1 each PRN DAILY PRN MC SEE COMMENTS 10/16/21 21:30 10/16/21 21:33 DC (SETH LARKIN APRN) EKG: EKG: Patient performed by ER staff at 2021 shows sinus rhythm with a rate of 80, QTc 423, no STEMI read by Dr. Ludwig at 2021 [] (SETH LARKIN APRN) Radiology/Procedures: Radiology/Procedures: []PROCEDURE: CT ANGIOGRAPHY CHEST Exam: CT of chest with contrast INDICATION: Short of air, chest pain, hemoptysis TECHNIQUE: Sequential axial images through the chest obtained following the administration of 90 mL of Isovue-370 IV contrast. Sagittal and coronal reformatted images were reconstructed from the axial data and reviewed. 3-D reformatted images were reconstructed from the axial data and reviewed. Exposure: One or more of the following in the visualized dose reduction techniques were utilized for this examination: 1. Automated exposure control 2. Adjustment of the MA and/or KV according to patient size 3. Use of iterative of reconstructive technique Comparisons: Chest x-ray same day FINDINGS: Visualized portions of the thyroid are unremarkable. No enlarged mediastinal lymph nodes are identified. Heart size is normal. No pericardial effusion. Thoracic aorta has a normal course and caliber. Pulmonary artery is not enlarged. No pulmonary embolus identified within the main, lobar or segmental pulmonary arteries. Airways are patent. Mild bronchial wall thickening is noted. No consolidation or pneumothorax. No pleural effusion or thickening. Visualized upper abdomen is unremarkable. No suspicious osseous lesions or acute fractures. IMPRESSION: 1. No pulmonary embolus identified within the main, lobar or segmental pulmonary arteries. 2. Mild bronchial wall thickening, correlate for bronchitis. Electronically signed by: Kana Bradley MD (10/16/2021 10:02 PM) [facility] DICTATED and SIGNED BY: KANA BRADLEY MD DATE: 10/16/21 [id number] 0 (SETH LARKIN APRN) Course & Med Decision Making: Course & Med Decision Making Pertinent Labs and Imaging studies reviewed. (See chart for details) Patient presents to the emergency department for a productive cough that is green with blood-tinged sputum, myalgias, headache, shortness of breath, chest pain, nausea. Chest pain is reproducible with palpation, cough and deep in spiration. Patient's vital signs are stable. She has a normal heart rate to mild tachycardia was witnessed to have a heart rate of 100 bpm. Patient is not hypoxic. Work-up in the ER consisted of blood work, EKG to rule out cardiac related chest pain. Chest x-ray performed to rule out pneumonia. [] Well score is 1 is low risk due to hemoptysis. She is complaining of shortness of breath and chest pain with hemoptysis so a CT angio was performed to rule out a pulmonary embolism. Patient will also be tested for influenza and COVID-19. Blood work was unremarkable. Patient does not have an elevated troponin. Heart score is 1. Chest x-ray did not show any acute findings. Patient had negative rapid influenza and Covid testing. Covid PCR was sent out and patient will be notified of those results when they become available. CT angio of chest showed no pulmonary embolism but findings consistent with bronchitis. Patient will be discharged home with an albuterol inhaler for shortness of breath and Tessalon P erles for cough. Patient's vital signs are stable and she is in no acute distress. I discussed with patient all findings and diagnostic testing as well as the need to follow-up with PCP for further evaluation and treatment or return to the ER if any new or worsening symptoms. Strict return precautions were also discussed at length. Patient voiced understanding and agreement with the plan. Patient is hemodynamically stable at the time of disposition. (SETH LARKIN APRN) Course & Med Decision Making Patients Care and treatment plan provided by ER mid-level Practitioner. I was available for consult. Patient's chart reviewed. (MICHELLE LUDWIG I DO) Jimmieon Disclaimer: Najma Disclaimer: This electronic medical record was generated, in whole or in part, using a voice recognition dictation system. (SETH LARKIN APRN) Departure Departure Impression: Primary Impression: Person under investigation for COVID-19 Additional Impression: Bronchitis Disposition: HOME / SELF CARE / HOMELESS Condition: GOOD Referrals: MARITA AGUILERA MD (PCP) Patient Instructions: Cough, Adult Additional Instructions: You were seen in the emergency department today for cough, myalgias, shortness of breath. Your blood work was unremarkable. Your chest x-ray did not show any acute findings. CT scan of your chest did not show any blood clots but did have findings consistent with bronchitis. Your rapid influenza and COVID test was negative. We will be sending out a Covid PCR test and we will call you with those results when they become available in approximately 1 to 2 days. Please self isolate until you receive this result. For your headache or body aches please take ibuprofen.. For shortness of breath you are being discharged home with an albuterol inhaler that you can use as needed. You are also being discharged home with cough medication. Increase your fluids and rest. Follow- up with your primary care provider on Tuesday regarding your ER visit. Return to the emergency department if you develop shortness of breath, chest pain, high fevers refractory to treatment, intractable nausea or vomiting, weakness, increase in blood in your sputum or any new or worsening concerns. Scripts Benzonatate (BENZONATATE) 100 Mg Capsule 1 CAP PO TID for 7 Days, #21 CAP 0 Refills Prov: SETH LARKIN APRN 10/16/21 Albuterol Sulfate (Proair Hfa) 8.5 Gm Hfa.aer.ad 2 PUFF IH PRN Q4-6HRS PRN for wheezing for 21 Days, #1 INHALER 0 Refills Prov: SETH LARKIN APRN 10/16/21 SETH LARKIN APRN Oct 16, 2021 19:42 MICHELLE LUDWIG DO Oct 17, 2021 03:12
--- NOTE | 2021-10-16 20:02 | RAD ---
XR CHEST 1V History: Reason: soa / Spl. Instructions: / History: Comparison: April 06, 2021 Findings: No consolidation or pleural effusion. Normal heart size. No pneumothorax. Impression: 1. No acute cardiopulmonary process. Electronically signed by: Davy Meza DO (10/16/2021 8:00 PM) [facility]
[2021-10-16 20:53] LABS: BASO # 0.1 x10^3/uL (0.0-0.2); BASO % 1 % (0-3); EOS # 0.1 x10^3/uL (0.0-0.7); EOS % 1 % (0-3); HEMATOCRIT 37.6 % (36.0-47.0); HEMOGLOBIN 12.3 g/dL (12.0-15.5); LYMPH # 3.2 x10^3/uL (1.0-4.8); LYMPH % 30 % (24-48); MEAN CORPUSCULAR HEMOGLOBIN 27 pg (25-35); MEAN CORPUSCULAR HGB CONC 33 g/dL (31-37); MEAN CORPUSCULAR VOLUME 83 fL (79-100); MONO % 10 % (0-9); NEUT # 6.3 x10^3/uL (1.8-7.7); NEUT % 59 % (31-73); PLATELET COUNT 347 x10^3/uL (140-400); RED BLOOD COUNT 4.52 x10^6/uL (3.50-5.40); RED CELL DISTRIBUTION WIDTH 14.1 % (11.5-14.5); WHITE BLOOD COUNT 10.7 x10^3/uL (4.0-11.0)
[2021-10-16 21:03] LABS: CALCIUM 9.5 mg/dL (8.5-10.1); CREATININE 0.7 mg/dL (0.6-1.0); GFR 90.5; POTASSIUM 3.9 mmol/L (3.5-5.1)
[2021-10-16 21:08] LABS: INFLUENZA A PATIENT NEGATIVE (NEGATIVE); INFLUENZA B PATIENT NEGATIVE (NEGATIVE)
[2021-10-16 21:10] LABS: ALBUMIN 3.6 g/dL (3.4-5.0); ALBUMIN/GLOBULIN RATIO 0.7 (1.0-1.7); TOTAL BILIRUBIN 0.4 mg/dL (0.2-1.0); TOTAL PROTEIN 8.9 g/dL (6.4-8.2)
[2021-10-16] MEDS ORDERED: IOHEXOL 350 MG/ML 100 ML VIAL. IV ONE (21:30)
[2021-10-16] MEDS ORDERED: CONTRAST GIVEN. MC PRN (21:30)
--- NOTE | 2021-10-16 22:04 | RAD ---
Exam: CT of chest with contrast INDICATION: Short of air, chest pain, hemoptysis TECHNIQUE: Sequential axial images through the chest obtained following the administration of 90 mL o f Isovue-370 IV contrast. Sagittal and coronal reformatted images were reconstructed from the axial d leida and reviewed. 3-D reformatted images were reconstructed from the axial data and reviewed. Exposure: One or more of the following in the visualized dose reduction techniques were utilized for this examination: 1. Automated exposure control 2. Adjustment of the MA and/or KV according to patient size 3. Use of iterative of reconstructive technique Comparisons: Chest x-ray same day FINDINGS: Visualized portions of the thyroid are unremarkable. No enlarged mediastinal lymph nodes are identifi ed. Heart size is normal. No pericardial effusion. Thoracic aorta has a normal course and caliber. Pulmon suzie artery is not enlarged. No pulmonary embolus identified within the main, lobar or segmental pulmo nary arteries. Airways are patent. Mild bronchial wall thickening is noted. No consolidation or pneumothorax. No pleural effusion or thickening. Visualized upper abdomen is unremarkable. No suspicious osseous lesions or acute fractures. IMPRESSION: 1. No pulmonary embolus identified within the main, lobar or segmental pulmonary arteries. 2. Mild bronchial wall thickening, correlate for bronchitis. Electronically signed by: Kana Diaz MD (10/16/2021 10:02 PM) [facility]
[2021-10-16] MEDS ORDERED: BENZ-8 PO (22:13)
[2021-10-16] MEDS ORDERED: ALBU2.5V8 IH (22:13)
[2021-10-16 22:34] VITALS: BP 171/85
--- NOTE | 2021-10-17 01:40 | EKG ---
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
== END 2021-10-16 21:33 | disposition home or self-care (01) ==
LOC: ER 18:26
DX: J40 Bronchitis, not specified as acute or chronic (principal); Z20.822 Contact with and (suspected) exposure to COVID-19; Z91.040 Latex allergy status; Z88.8 Allergy status to other drugs, medicaments and biological substances
CPT/HCPCS: 36415; 71045; 71275; 80053; 81025; 84484; 85025; 87428; 93005; 99285; Q9967; U0003; U0005